=== PATIENT | male | born 1970 | race Caucasian/White ===

== ENCOUNTER 2019-05-28 16:33 | Inpatient (IN) | payer SELFPAY ==
[2019-05-28 16:35] VITALS: BP 128/78; PULSE 76; RESP 18; TEMP 37.1; O2SAT 99; BMI 31.0
--- NOTE | 2019-05-28 16:45 | ED_ITS ---
Documented by User: Nay Nelson DO 05/28/19 18:23 HPI - Chest Pain General: Chief Complaint: Chest Pain Stated Complaint: cp Time Seen by Provider: 05/28/19 16:45 History of Present Illness: HPI narrative: chest pain right chest since yesterday morning. Worse when he was exerting himself yesterday cleaning out a car. It was MD complaint: chest pain Pertinent past history: coronary artery disease Onset (ago): day(s) (2) Timing of current episode: episodic Prior episodes: Yes Onset: during rest Pain location: right chest Pain radiation: right arm Severity: severe Pain scale (0-10): 8 Quality: sharp Relieving factors: nothing Exacerbating factors: exertion Associated symptoms: Reports diaphoresis, dyspnea and nausea; Deny abdominal pain, fever(s) or vomiting Treatment prior to arrival: none Review of Systems Const: Reports: fatigue and diaphoresis; Denies: fever, chills, change in appetite or malaise ENMT: Reports: throat pain and other (jaw pain) Card: Reports: chest pain, lightheadedness and shortness of breath on exertion; Denies: irregular heart rhythm Resp: Reports: shortness of breath GI: Reports: nausea; Denies: abdominal pain, vomiting, cramping or belching : Denies: flank pain or difficulty urinating Musc: Denies: neck pain or back pain Neuro: Reports: headache PFSH ED PFSH: Medical History (Updated 05/28/19 @ 23:58 by Saba Conde MD) Borderline hypertension According to the patient, not currently on any treatment but has been in the past Surgical History (Updated 05/28/19 @ 23:29 by Saba Conde MD) History of appendectomy History of shoulder surgery right Family History (Updated 05/29/19 @ 00:07 by Saba Conde MD) Father CAD (coronary artery disease) reports onset in his 50s, has stents Mother CAD (coronary artery disease) Social History Smoking and tobacco status: current every day smoker Physical Exam Const: COMMON NORMALS: no apparent distress and oriented x3 GENERAL APPEARANCE: cooperative; not in distress HENMT: COMMON NORMALS: normocephalic HEAD & SCALP: normal to inspection and normocephalic MOUTH: oral and palatal mucosa normal and lip normal THROAT: posterior oropharynx normal and tonsils normal Neck/C-Spine: COMMON NORMALS: full ROM, no lymphadenopathy, supple and no meningeal signs GENERAL: Yes normal visual inspection and Yes trachea midline Chest: COMMONS NORMALS: inspection of chest normal Resp: COMMON NORMALS: normal respiratory effort and clear to auscultation bilaterally EFFORT & INSPECTION: Yes able to speak in complete sentences and No respiratory distress AUSCULTATION: clear to auscultation bilaterally, no rales, no rhonchi and no wheezes Cardio: COMMON NORMALS: regular rate, regular rhythm, S1 normal heart sound, S2 normal heart sound and no murmurs RATE: regular rate RHYTHM: regular rhythm HEART SOUNDS: S1 normal and S2 normal PERIPHERAL PULSES: radial pulses present and dorsalis pedis pulses present GI: COMMON NORMALS: normal to inspection, nondistended, normoactive bowel sounds, soft to palpation and non-tender INSPECTION: Yes normal to inspection AUSCULTATION: Yes normoactive bowel sounds PALPATION: Yes soft, No tender, No guarding and No rigid RECTAL EXAM: Yes deferred : COMMON NORMALS: Yes no CVA tenderness BLADDER/KIDNEY EXAM: Yes no CVA tenderness Back/Pelvis: COMMON NORMALS: no CVA tenderness Extremity: COMMON NORMALS: normal to inspection, full ROM, normal capillary refill, no calf tenderness and no pedal edema Neuro: COMMON NORMALS: oriented x3, CN's II-XII intact bilaterally, moves all extremities and no focal motor deficits MENINGEAL SIGNS: Yes no meningeal signs Skin: COMMON NORMALS: no rashes or lesions noted GENERAL SKIN EXAM: no rashes or lesions noted Course Vital Signs: Vital signs: Vital Signs Temperature 98.8 F 05/28/19 16:35 Pulse Rate 58 L 05/28/19 23:32 Respiratory Rate 18 05/28/19 23:32 Blood Pressure 95/55 05/28/19 23:32 Pulse Oximetry 99 05/28/19 23:32 MDM - Chest Pain Lab Data: Attestation: I reviewed the patient's lab results. Labs: Lab Results 05/28/19 05/28/19 05/28/19 Range/Units 16:50 16:50 16:50 WBC 8.2 (4.0-10.0) 10^3/ uL RBC 4.93 (4.1-5.3) 10^6/u L Hgb 15.6 (11.7-16.6) g/dL Hct 47.9 (42.0-52.0) % MCV 97.2 H (80-94) fL MCH 31.6 (28.0-34.0) pg MCHC 32.6 (30.0-36.0) g/dL RDW 13.7 (12.1-15.1) % Plt Count 338 (130-400) 10^3/c mm MPV 10.2 (7.4-10.4) fL Neut % (Auto) 60.3 % Lymph % (Auto) 22.9 % [place] % (Auto) 10.4 % Eos % (Auto) 5.7 % Baso % (Auto) 0.5 % Neut # (Auto) 5.0 (1.8-7.7) 10^3/u L Lymph # (Auto) 1.9 (0.8-4.8) 10^3/u L [place] # (Auto) 0.9 (0.2-0.9) 10^3/u L Eos # (Auto) 0.5 (0.0-0.8) 10^3/u L Baso # (Auto) 0.0 (0.0-0.1) 10^3/u L Nucleated RBC % (a uto) 0 % Nucleated RBCs # 0.0 /100WBC D-Dimer (0-0.59) ug/mIFE U Sodium 142 (136-145) mmol/L Potassium 4.1 (3.5-5.1) mmol/L Chloride 101 (98-107) mmol/L Carbon Dioxide 27 (22-29) mmol/L Anion Gap 18.1 (5-19) BUN 17 (6-20) mg/dL Creatinine 1.2 (0.7-1.2) mg/dL GFR Calculation 64.4 L (90-130) mL/min Glucose 119 H (65-115) mg/dL Calculated Osmolal ity 292 (285-295) mOsm/k g Calcium 9.3 (8.5-10.5) mg/dL Total Bilirubin 0.4 (0.15-1.2) mg/dL AST 53 H (0-40) U/L ALT 24 (0-41) U/L Alkaline Phosphata se 75 (40-130) IU/L Troponin T Baselin e 703 H* (0-15) ng/mL Troponin T [address] [place] (0-15) ng/mL Delta Troponin T (0-10) ABS# Total Protein 7.0 (6.6-8.7) g/dL Albumin 4.5 (3.5-5.2) g/dL Globulin 2.5 (1.3-4.6) g/dL 05/28/19 05/28/19 Range/Units 16:50 19:40 WBC (4.0-10.0) 10^3/ uL RBC (4.1-5.3) 10^6/u L Hgb (11.7-16.6) g/dL Hct (42.0-52.0) % MCV (80-94) fL MCH (28.0-34.0) pg MCHC (30.0-36.0) g/dL RDW (12.1-15.1) % Plt Count (130-400) 10^3/c mm MPV (7.4-10.4) fL Neut % (Auto) % Lymph % (Auto) % [place] % (Auto) % Eos % (Auto) % Baso % (Auto) % Neut # (Auto) (1.8-7.7) 10^3/u L Lymph # (Auto) (0.8-4.8) 10^3/u L [place] # (Auto) (0.2-0.9) 10^3/u L Eos # (Auto) (0.0-0.8) 10^3/u L Baso # (Auto) (0.0-0.1) 10^3/u L Nucleated RBC % (a uto) % Nucleated RBCs # /100WBC D-Dimer 0.16 (0-0.59) ug/mIFE U Sodium (136-145) mmol/L Potassium (3.5-5.1) mmol/L Chloride (98-107) mmol/L Carbon Dioxide (22-29) mmol/L Anion Gap (5-19) BUN (6-20) mg/dL Creatinine (0.7-1.2) mg/dL GFR Calculation (90-130) mL/min Glucose (65-115) mg/dL Calculated Osmolal ity (285-295) mOsm/k g Calcium (8.5-10.5) mg/dL Total Bilirubin (0.15-1.2) mg/dL AST (0-40) U/L ALT (0-41) U/L Alkaline Phosphata se (40-130) IU/L Troponin T Baselin e (0-15) ng/mL Troponin T [address] [place] 813.1 H (0-15) ng/mL Delta Troponin T 110.1 H* (0-10) ABS# Total Protein (6.6-8.7) g/dL Albumin (3.5-5.2) g/dL Globulin (1.3-4.6) g/dL Imaging Data^: CXR: Attestation: I personally reviewed and interpreted this imaging study as follows: My impression: elevated right hemidiaphragm, nad Discharge Plan Discharge Patient Disposition: Admitted As Inpatient Admit Provider: Saba Conde Clinical Impression: Non-ST elevation IN (NSTEMI) Condition: Stable Interventions: ED Discharge Assessment Last Done: 05/28/19 23:32 Discharge Date/Time: 05/29/19 00:02 Sign Out Sign Out Data: Patient Sign Out occurred on 05/28/19 at 18:27. Patient's care was discussed, and care was transferred from to Jennifer Pimentel. Coding Level of Care Code ED Dry Mixer for Chg Fwd Exam Comprehensive Documented by User: Jennifer Pimentel 05/29/19 00:12 HPI - Chest Pain General: Chief Complaint: Chest Pain Stated Complaint: cp Time Seen by Provider: 05/28/19 16:45 PFSH ED PFSH: Medical History (Updated 05/28/19 @ 23:58 by Saba Conde MD) Borderline hypertension According to the patient, not currently on any treatment but has been in the past Surgical History (Updated 05/28/19 @ 23:29 by Saba Conde MD) History of appendectomy History of shoulder surgery right Family History (Updated 05/29/19 @ 00:07 by Saba Conde MD) Father CAD (coronary artery disease) reports onset in his 50s, has stents Mother CAD (coronary artery disease) Social History Smoking and tobacco status: current every day smoker Course Vital Signs: Vital signs: Vital Signs Temperature 98.8 F 05/28/19 16:35 Pulse Rate 58 L 05/28/19 23:32 Respiratory Rate 18 05/28/19 23:32 Blood Pressure 95/55 05/28/19 23:32 Pulse Oximetry 99 05/28/19 23:32 MDM - Chest Pain MDM Narrative: Medical decision making narrative: 1800 -Case turned over to me at change of shift from Dr. Nelson. Please see her note for her history, physical exam and medical decision-making notes. Mr. Mathews is a 48-year-old male who comes in complaining of intermittent chest pain that is described as mostly up in his right upper chest. He states it has been going on for a few weeks but worse today. He states it hurts more today when he moves his arm but he also has pain at rest. At the time of my exam he is chest pain-free he believes the pain just resolved on its own. He does state that at times the pain would radiate up into his jaw but denies any diaphoresis, nausea, vomiting, syncope or near syncopal type symptoms. His first EKG reviewed by me looks unremarkable labs of been delayed and are pending at this time but patient is chest pain-free currently. Admission -patient is still chest pain-free. His second EKG is unremarkable. His troponin has gone up from 700 to 800 but again he is chest pain-free. I have consulted Dr. Conde for admission and she will come to see the patient. I reviewed the case with Dr. Crockett and he is agreeable to consult and will see the patient. Lab Data: Labs: Lab Results 05/28/19 05/28/19 05/28/19 Range/Units 16:50 16:50 16:50 WBC 8.2 (4.0-10.0) 10^3/ uL RBC 4.93 (4.1-5.3) 10^6/u L Hgb 15.6 (11.7-16.6) g/dL Hct 47.9 (42.0-52.0) % MCV 97.2 H (80-94) fL MCH 31.6 (28.0-34.0) pg MCHC 32.6 (30.0-36.0) g/dL RDW 13.7 (12.1-15.1) % Plt Count 338 (130-400) 10^3/c mm MPV 10.2 (7.4-10.4) fL Neut % (Auto) 60.3 % Lymph % (Auto) 22.9 % [place] % (Auto) 10.4 % Eos % (Auto) 5.7 % Baso % (Auto) 0.5 % Neut # (Auto) 5.0 (1.8-7.7) 10^3/u L Lymph # (Auto) 1.9 (0.8-4.8) 10^3/u L [place] # (Auto) 0.9 (0.2-0.9) 10^3/u L Eos # (Auto) 0.5 (0.0-0.8) 10^3/u L Baso # (Auto) 0.0 (0.0-0.1) 10^3/u L Nucleated RBC % (a uto) 0 % Nucleated RBCs # 0.0 /100WBC D-Dimer (0-0.59) ug/mIFE U Sodium 142 (136-145) mmol/L Potassium 4.1 (3.5-5.1) mmol/L Chloride 101 (98-107) mmol/L Carbon Dioxide 27 (22-29) mmol/L Anion Gap 18.1 (5-19) BUN 17 (6-20) mg/dL Creatinine 1.2 (0.7-1.2) mg/dL GFR Calculation 64.4 L (90-130) mL/min Glucose 119 H (65-115) mg/dL Calculated Osmolal ity 292 (285-295) mOsm/k g Calcium 9.3 (8.5-10.5) mg/dL Total Bilirubin 0.4 (0.15-1.2) mg/dL AST 53 H (0-40) U/L ALT 24 (0-41) U/L Alkaline Phosphata se 75 (40-130) IU/L Troponin T Baselin e 703 H* (0-15) ng/mL Troponin T [address] [place] (0-15) ng/mL Delta Troponin T (0-10) ABS# Total Protein 7.0 (6.6-8.7) g/dL Albumin 4.5 (3.5-5.2) g/dL Globulin 2.5 (1.3-4.6) g/dL 05/28/19 05/28/19 Range/Units 16:50 19:40 WBC (4.0-10.0) 10^3/ uL RBC (4.1-5.3) 10^6/u L Hgb (11.7-16.6) g/dL Hct (42.0-52.0) % MCV (80-94) fL MCH (28.0-34.0) pg MCHC (30.0-36.0) g/dL RDW (12.1-15.1) % Plt Count (130-400) 10^3/c mm MPV (7.4-10.4) fL Neut % (Auto) % Lymph % (Auto) % [place] % (Auto) % Eos % (Auto) % Baso % (Auto) % Neut # (Auto) (1.8-7.7) 10^3/u L Lymph # (Auto) (0.8-4.8) 10^3/u L [place] # (Auto) (0.2-0.9) 10^3/u L Eos # (Auto) (0.0-0.8) 10^3/u L Baso # (Auto) (0.0-0.1) 10^3/u L Nucleated RBC % (a uto) % Nucleated RBCs # /100WBC D-Dimer 0.16 (0-0.59) ug/mIFE U Sodium (136-145) mmol/L Potassium (3.5-5.1) mmol/L Chloride (98-107) mmol/L Carbon Dioxide (22-29) mmol/L Anion Gap (5-19) BUN (6-20) mg/dL Creatinine (0.7-1.2) mg/dL GFR Calculation (90-130) mL/min Glucose (65-115) mg/dL Calculated Osmolal ity (285-295) mOsm/k g Calcium (8.5-10.5) mg/dL Total Bilirubin (0.15-1.2) mg/dL AST (0-40) U/L ALT (0-41) U/L Alkaline Phosphata se (40-130) IU/L Troponin T Baselin e (0-15) ng/mL Troponin T [address] [place] 813.1 H (0-15) ng/mL Delta Troponin T 110.1 H* (0-10) ABS# Total Protein (6.6-8.7) g/dL Albumin (3.5-5.2) g/dL Globulin (1.3-4.6) g/dL Imaging Data^: CXR: My impression: No acute cardiopulmonary findings. EKG Data^: EKG 1: Attestation: I personally reviewed and interpreted this EKG as follows: EKG interpretation date: 05/28/19 Interpretation: Normal sinus rhythm at 70 beats a minute, no acute ST or T wave changes. EKG 2: Attestation: I personally reviewed and interpreted this EKG as follows: EKG interpretation date: 05/28/19 EKG interpretation time: 20:23 Interpretation: Normal sinus rhythm at 52 beats a minute, LVH, T waves inverted with Q waves inferiorly specifically 3 and aVF, no other acute ST or T wave changes. EKG 3: Attestation: I personally reviewed and interpreted this EKG as follows: EKG interpretation date: 05/28/19 EKG interpretation time: 22:48 Interpretation: Sinus bradycardia 54 beats a minute, no acute ST or T wave changes. Discharge Plan Discharge Patient Disposition: Admitted As Inpatient Admit Provider: Saba Conde Clinical Impression: Non-ST elevation IN (NSTEMI) Condition: Stable Interventions: ED Discharge Assessment Last Done: 05/28/19 23:32 Discharge Date/Time: 05/29/19 00:02 Sign Out Sign Out Data: Patient Sign Out occurred on 05/28/19 at 18:27. Patient's care was discussed, and care was transferred from to Jennifer Hernandez [facility]. Coding Level of Care Code ED Dry Mixer for [place] Fwd Exam Comprehensive
--- NOTE | 2019-05-28 17:10 | ECG_ITS ---
Measurements Intervals [place] Rate: 70 P: 58 FL: 158 QRS: 4 QRSD: 108 T: 55 QT: 383 QTc: 413 SINUS RHYTHM POSSIBLE LATERAL MYOCARDIAL INFARCTION , PROBABLY OLD [30 ms Q WAVE IN I/ I/aVL/V5/V6] No previous ECG available for comparison Electronically Signed On 05-28-2019 18:12:24 CDT by Elizabeth Garcia M.D. [id number]
--- NOTE | 2019-05-28 17:10 | XR_ITS ---
WS: [id number] CHEST XRAY TECHNIQUE: Portable chest. CLINICAL INFORMATION: pneumonia COMPARISON: None. FINDINGS: Heart: Normal cardiac silhouette. Lungs: Lungs are clear. No consolidation or pleural effusion. Bones: Normal visualized bony structures. XR/XR chest 1V portable [id number] IMPRESSION: Normal chest
[2019-05-28] MEDS: aspirin 81 mg Chew Tablet 324 MG PO (17:24)
[2019-05-28] MEDS: ondansetron 2 mg/ML SDV 2 mL 4 MG IVP (17:24)
[2019-05-28 17:25] VITALS: RESP 17; O2SAT 97
[2019-05-28] MEDS: morphine 4 mg/mL SDV 1 mL IVP (17:25)
[2019-05-28 17:27] VITALS: BP 107/74; PULSE 65; RESP 17; O2SAT 96
--- NOTE | 2019-05-28 19:10 | ECG_ITS ---
Measurements Intervals [place] Rate: 52 P: 50 TX: 169 QRS: 6 QRSD: 96 T: -19 QT: 421 QTc: 392 SINUS BRADYCARDIA MINIMAL VOLTAGE CRITERIA FOR LVH, CONSIDER NORMAL VARIANT [MEETS CRITERIA IN ONE OF: R(aVL), S(V1), R(V5), R(V5/V6)+S(V1)] INFERIOR MYOCARDIAL INFARCTION , OF INDETERMINATE AGE WITH POSTERIOR EXTENSION [40+ ms Q WAVE AND/OR ST/T ABNORMALITY IN II/aV Compared to ECG 05/28/2019 16:45:43 Sinus rhythm no longer present Myocardial infarct finding still present Electronically Signed On 06-01-2019 15:01:17 CDT by Elizabeth Garcia M.D. [id number]
[2019-05-28 19:30] VITALS: BP 110/58; PULSE 56; RESP 16; O2SAT 98
[2019-05-28 19:37] LABS: Basophils % 0.5 %; Eosinophils # 0.5 10^3/uL (0.0-0.8); Eosinophils % 5.7 %; Hematocrit 47.9 % (42.0-52.0); Hemoglobin 15.6 g/dL (11.7-16.6); Lymphocytes # 1.9 10^3/uL (0.8-4.8); Lymphocytes % 22.9 %; Mean Corpuscular HGB Conc 32.6 g/dL (30.0-36.0); Mean Corpuscular Hemoglobin 31.6 pg (28.0-34.0); Mean Corpuscular Volume 97.2 fL (80-94); Mean Platelet Volume 10.2 fL (7.4-10.4); Monocytes # 0.9 10^3/uL (0.2-0.9); Monocytes % 10.4 %; Neutrophils % 60.3 %; Nucleated Red Blood Cells % 0 %; Platelet Count 338 10^3/cmm (130-400); Red Blood Count 4.93 10^6/uL (4.1-5.3); Red Cell Distribution Width 13.7 % (12.1-15.1); White Blood Count 8.2 10^3/uL (4.0-10.0)
[2019-05-28] MEDS: nitroglycerin 1 gm/inch oint Pkt 1 INCH TOPICAL (20:31)
[2019-05-28 21:00] VITALS: BP 114/92; PULSE 52; RESP 16; O2SAT 98
[2019-05-28 21:12] LABS: Troponin(5th) Baseline 703 ng/mL (0-15)
[2019-05-28 21:13] LABS: Troponin 5 2HR 813.1 ng/mL (0-15); Troponin 5 2HR Delta 110.1 ABS# (0-10)
[2019-05-28 21:14] LABS: Alanine Aminotransferase 24 U/L (0-41); Albumin Level 4.5 g/dL (3.5-5.2); Alkaline Phosphatase 75 IU/L (40-130); Anion Gap 18.1 (5-19); Aspartate Amino Transferase 53 U/L (0-40); Blood Urea Nitrogen 17 mg/dL (6-20); Calcium 9.3 mg/dL (8.5-10.5); Carbon Dioxide 27 mmol/L (22-29); Chloride 101 mmol/L (98-107); Globulin 2.5 g/dL (1.3-4.6); Glomerular Filtration Rate 64.4 mL/min (90-130); Glucose 119 mg/dL (65-115); Osmolality Calculated 292 mOsm/kg (285-295); Potassium 4.1 mmol/L (3.5-5.1); Sodium 142 mmol/L (136-145); Total Bilirubin 0.4 mg/dL (0.15-1.2)
[2019-05-28 21:19] LABS: D Dimer 0.16 ug/mIFEU (0-0.59)
[2019-05-28] MEDS: enoxaparin 100 mg/mL Syringe 95 MG SUBCUT (21:42)
--- NOTE | 2019-05-28 23:10 | ECG_ITS ---
Measurements Intervals [place] Rate: 54 P: 57 CT: 170 QRS: 1 QRSD: 103 T: 45 QT: 430 QTc: 409 SINUS BRADYCARDIA Compared to ECG 05/28/2019 16:45:43 Sinus rhythm no longer present Myocardial infarct finding no longer present Electronically Signed On 05-30-2019 6:44:24 CDT by Evan Crockett M.D. [email or web address]
--- NOTE | 2019-05-28 23:14 | PC.NURSE ---
Pt states he fellt a stabbing pain 1/10 scale during bradycardia of 40 episode. RN & Dr notified
[2019-05-28 23:15] LABS: Troponin 5 6HR 1044 ng/mL (0-15); Troponin 5 6HR Delta 341 ng/L (0-12)
--- NOTE | 2019-05-28 23:15 | PC.NURSE ---
critical 6 hour Trop 1044, delta 341, advised Dr. Pimentel.
--- NOTE | 2019-05-28 23:24 | P.HP_ITS ---
Providers/Chief Complaint Admitting Physician: Saba Conde MD Primary Care Provider: none presently Chief Complaint: chest pain History of Present Illness Elliott Breen is a 48 year old male who presented to the emergency room with chief complaint of chest pain. Symptoms been going on intermittently over the last 2 to 3 weeks. Most of the time the pain is with exertion but has occurred occasionally when lying down. Pain seems to start on the right side of his chest and radiates up into his jaw. He described his teeth hurting with the pain. Most of the time it seems to resolve after a while without progression. He is not really had any other associated symptoms. He has intermittent joint pains for which he intermittently takes naproxen. He has not had any relief with this. 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 Yesterday he was cleaning out the trailer and had fairly severe pain that he rated up to a 10 out of 10 at its worst. It was associated with some shortness of breath yesterday. Seemed to improve a little bit with rest but did not completely go away for some time. Today he woke up not feeling well to the point that he did not feel like going to work. He eventually came in for further evaluation. He admits that he had been a little bit scared to come in to be evaluated lately because of the COVID pandemic and potential risk of exposure. On arrival to the emergency room initial EKG showed some inferior Q waves but no ST segment elevation. Initial troponin was over 700. 2-hour troponin was over 800 with a delta of 110. EKG showed evolving Q waves and some transient flipped T waves. Patient had received nitroglycerin and aspirin with resolution of his chest pain. He is currently chest pain-free. Patient does smoke about a half a pack a day. He has a family history of coronary artery disease with both of his parents having heart problems in his father having had stents placed in his 50s. He says he has been told that he has a little bit of high blood pressure but he is not on any chronic medications for such. Denies any dyslipidemia, diabetes or other known chronic medical problems. Patient is being admitted for further evaluation and treatment. Review of Systems Const: Denies: fever, chills or change in weight Eyes: Denies: change in vision ENMT: Denies: throat pain or nasal congestion Card: Reports: chest pain; Denies: palpitations or edema Resp: Reports: shortness of breath; Denies: productive cough GI: Denies: abdominal pain, nausea, vomiting, diarrhea, constipation or blood in stool : Denies: urinary frequency Skin/Breast: Denies: rash or sores Neuro: Denies: headache or weakness in extremities Psych: Reports: other (admits to being scared presently); Denies: anxiety or depression Fer/Lymph: Denies: easy bruising or easy bleeding Medications/Allergies Home Medications Medication Instructions Recorded Confirmed Last Taken Type multivitamin with minerals 1 tab PO DAILY 05/28/19 05/28/19 Unknown History [Multiple Vitamin-Minerals] naproxen sodium [Aleve] 220 mg PO BID PRN 05/28/19 05/28/19 05/27/19 History Allergies Allergy/AdvReac Type Severity Reaction Status Date / Time meperidine [From Demerol] Allergy ADR-Irritab Verified 05/28/19 16:42 le PFSH Acute PFSH: Medical History (Updated 05/28/19 @ 23:58 by Saba Conde MD) Borderline hypertension According to the patient, not currently on any treatment but has been in the past Surgical History (Updated 05/28/19 @ 23:29 by Saba Conde MD) History of appendectomy History of shoulder surgery right Family History (Updated 05/29/19 @ 00:07 by Saba Conde MD) Father CAD (coronary artery disease) reports onset in his 50s, has stents Mother CAD (coronary artery disease) Social History Smoking and tobacco status: current every day smoker Vitals/I&O/Wt Last Vital Signs Temp 98.8 F 05/28/19 16:35 Pulse 65 05/28/19 17:27 Resp 17 05/28/19 17:27 BP 107/74 05/28/19 17:27 Pulse Ox 96 05/28/19 17:27 Weight last 48 hrs Weight 95.254 kg Physical Exam Const: COMMON NORMALS: oriented x3 and alert HENMT: COMMON NORMALS: normocephalic, head/scalp atraumatic, moist oral mucous membranes and oropharynx normal Eye: COMMON NORMALS: PERRL and EOMs intact bilaterally Neck/C-Spine: COMMON NORMALS: supple Lymph: LYMPHATIC: no lymphadenopathy noted Resp: COMMON NORMALS: normal respiratory effort, no use of accessory muscles and clear to auscultation bilaterally Cardio: COMMON NORMALS: regular rate, regular rhythm, no gallops, no murmurs and no rub GI: COMMON NORMALS: soft to palpation and non-tender AUSCULTATION: Yes no rmoactive bowel sounds Extremity: COMMON NORMALS: normal capillary refill GENERAL: No clubbing and Yes edema (Trace) RIGHT UPPER EXTREMITY: Yes shoulder joint Right shoulder: Yes ROM (Decreased chronically, no warmth or erythema) Neuro: COMMON NORMALS: moves all extremities and no sensory deficits noted Psych: COMMON NORMALS: thought process normal and cooperative Skin: COMMON NORMALS: no rashes or lesions noted and no mottling Data : 05/28/19 16:50 05/28/19 16:50 Other Labs: Laboratory Tests 05/28/19 05/28/19 05/28/19 16:50 16:50 16:50 D-Dimer 0.16 AST 53 H Troponin I 6 Hour Troponin I Hi Sens Del Troponin T Baseline 703 H* Troponin T 120 Minute Delta Troponin T 05/28/19 05/28/19 19:40 22:45 D-Dimer AST Troponin I 6 Hour 1044 H Troponin I Hi Sens Del 341 H* Troponin T Baseline Troponin T 120 Minute 813.1 H Delta Troponin T 110.1 H* A&P Assessment and plan (1) Non-ST elevation [place] (NSTEMI): Patient has both typical and atypical features of his chest pain but describes an escalating course of the last few weeks consistent with unstable angina. On presentation he is inferior changes suggestive of ischemia. He has no known history of coronary artery disease but has been told he has hypertension in the past. Other current risk factors include tobacco use and o besity combined with a family history of coronary artery disease. I suspect he had an acute event yesterday by history. He has developed some low normal blood pressure and heart rate with initiation of nitroglycerin but is currently chest pain-free. Status: Acute (2) Nicotine dependence, cigarettes, uncomplicated: Half a pack a day, has expressed interest in quitting given the acute event related to his heart Status: Chronic Additional A&P Information Minimal AST elevation Borderline blood sugar Inpatient admission Continue treatment dose Lovenox Aspirin with Plavix load We will decrease Nitropaste to half an inch and continue given current control of symptoms Telemetry monitoring I have spoken with Dr. Crockett who will see him in consultation Keep n.p.o. for further cardiac evaluation in the morning Echocardiogram is ordered Check lipids and hemoglobin A1c IV fluids low volume tonight superintendent [employer] services to assist with outpatient follow-up I discussed with patient the importance of smoking cessation in regards to overall cardiac health as well as other lifestyle changes including addition of medications, need to follow-up with a primary care provider etc. Gave patient an opportunity to ask questions. He was understandably a little bit scared, I think made a little bit worse because he had delayed coming in given the fear of infection. Provided reassurance as able Full code Attestations Medical Necessity Statement*: Anticipated stay greater than 2 midnights in patient with inferior plans are as noted above. Non-ST elevation TX and significant troponin elevation. He describes unstable angina over the last few weeks. Plans are as noted above. Coding Level of Care Code Acute Machine Room Engineer for Tucker Siegel Diagnoses Non-ST elevation TX (NSTEMI) I21.4 Nicotine dependence, cigarettes, uncomplicated F17.210
[2019-05-28 23:32] VITALS: BP 95/55; PULSE 58; RESP 18; O2SAT 99
[2019-05-29] VITALS (32 sets, daily range): BP systolic 97–165; BP diastolic 55–114; PULSE 49–78; RESP 14–21; TEMP 36.5–37; O2SAT 94–99
--- NOTE | 2019-05-29 00:19 | PC.NURSE ---
PT ARRIVED TO ROOM 254-1 VIA BED AND AMBULATED FROM THE PEREZ TO THEIR BED. PT STATES THAT THEY HAVE 0/10 PAIN PRESENT AT THIS TIME. PT HAS A NITRO PASTE 1 ON THE RIGHT CHEST AT THIS TIME. VS T-97.7, P-50, RR-18, BP-97/55, SPO2-97%. PT HAS A NSR AT THIS TIME. WILL CONTINUE TO MONITOR.
[2019-05-29] MEDS: morphine 4 mg/mL SDV 1 mL IVP (00:35)
--- NOTE | 2019-05-29 00:46 | PC.NURSE ---
PT C/O 8/10 PAIN IN NECK AND SHOULDER. RN GAVE 4MG MORPHINE IVP. WILL CONTINUE TO MONITOR.
[2019-05-29] MEDS: atorvastatin 40 mg Tablet PO ×2 (01:02→20:54)
[2019-05-29] MEDS: clopidogrel 300 mg Tablet PO (01:03)
[2019-05-29] MEDS: nitroglycerin 1 gm/inch oint Pkt 0.5 INCH TOPICAL ×5 (01:04→20:54)
[2019-05-29] MEDS: sodium chloride 0.45% 1,000 ML 75 ML IV (01:13)
[2019-05-29 05:22] LABS: Basophils % 0.5 %; Eosinophils # 0.4 10^3/uL (0.0-0.8); Eosinophils % 6.2 %; Hematocrit 43.2 % (42.0-52.0); Hemoglobin 13.9 g/dL (11.7-16.6); Lymphocytes # 1.8 10^3/uL (0.8-4.8); Lymphocytes % 28.3 %; Mean Corpuscular HGB Conc 32.2 g/dL (30.0-36.0); Mean Corpuscular Hemoglobin 31.3 pg (28.0-34.0); Mean Corpuscular Volume 97.3 fL (80-94); Mean Platelet Volume 9.5 fL (7.4-10.4); Monocytes # 0.8 10^3/uL (0.2-0.9); Monocytes % 11.7 %; Neutrophils # 3.5 10^3/uL (1.8-7.7); Neutrophils % 53.1 %; Nucleated Red Blood Cells % 0 %; Platelet Count 253 10^3/cmm (130-400); Red Blood Count 4.44 10^6/uL (4.1-5.3); Red Cell Distribution Width 13.6 % (12.1-15.1); White Blood Count 6.5 10^3/uL (4.0-10.0)
[2019-05-29 05:39] LABS: INR 0.96 (0.8-1.2)
[2019-05-29 05:40] LABS: Partial Thromboplastin Time 34.4 SECONDS (23.9-36.7)
[2019-05-29 05:43] LABS: Estmated Average Glucose 111; Hemoglobin A1C 5.5 % (4.0-6.0)
[2019-05-29 05:50] LABS: Anion Gap 13.7 (5-19); Blood Urea Nitrogen 19 mg/dL (6-20); Calcium 8.9 mg/dL (8.5-10.5); Carbon Dioxide 26 mmol/L (22-29); Chloride 103 mmol/L (98-107); Glomerular Filtration Rate 71.1 mL/min (90-130); Glucose 94 mg/dL (65-115); Osmolality Calculated 284 mOsm/kg (285-295); Potassium 3.7 mmol/L (3.5-5.1); Sodium 139 mmol/L (136-145)
[2019-05-29 05:56] LABS: Chol HDL Ratio 5.24 mg/dL (1.0-5.00); Cholesterol 178 mg/dL (0-200); HDL Cholesterol 34 mg/dL (60-100); LDL Cholesterol Calculated 103 mg/dL (50-129); LDL HDL Ratio 3.03 RATIO (0.00-3.22); NT Pro B Type Natriuretic Pept 284 pg/mL (0-125); Triglycerides 206 mg/dL (0-150)
[2019-05-29 06:04] LABS: Phosphorus 3.5 mg/dL (2.5-4.5)
[2019-05-29 06:05] LABS: Magnesium 2.1 mg/dL (1.7-2.3)
--- NOTE | 2019-05-29 07:43 | PM.CONSULT ---
Providers/Reason For Consult Consulting Physican/Specialty*: Cardiovascular medicine Reason for Consult*: Non-STEMI Attending Physician: Saba Conde MD History of Present Illness History of Present Illness Elliott Breen is a 48 year old male who is a heavy smoker. He has no history of heart disease. He admits that over the last 3 or 4 weeks he has had several episodes of chest pain numbering in the 5-6 range. He has a difficult time describing them. They sound substernal. 2 days ago it was much more severe. Yesterday morning he did not feel well and so he told his boss at work that he was not feeling well and they told him to come in. His first troponin was 700. His third troponin was 1044. He was placed on medications and has not had any further chest discomfort. His EKG is unremarkable. Review of Systems General: Reports: 10 or more systems reviewed and unremarkable except in HPI and below Meds/Allergies Home Medications and Allergies Home Medications Medication Instructions Recorded Confirmed Type multivitamin with minerals 1 tab PO DAILY 05/28/19 05/28/19 History [Multiple Vitamin-Minerals] naproxen sodium [Aleve] 220 mg PO BID PRN 05/28/19 05/28/19 History Allergies Allergy/AdvReac Type Severity Reaction Status Date / Time meperidine [From Demerol] Allergy ADR-Irritab Verified 05/28/19 16:42 le Current Medications Current Medications Generic Name Dose Route Start Last Admin Trade Name Freq PRN Reason Stop Dose Admin Atorvastatin Calcium 40 mg 05/28/19 23:57 05/29/19 01:02 Lipitor PO 40 mg BEDTIME ECTOR Administration Sodium Chloride 1,000 mls @ 75 mls/hr 05/28/19 23:57 05/29/19 01:13 Sodium Chloride 0.45% IV 75 mls/hr .[id number] ECTOR Administration Morphine Sulfate 4 mg 05/28/19 23:57 05/29/19 00:35 Morphine IVP 4 mg Q4H PRN Administration SEVERE PAIN Nitroglycerin 0.5 inch 05/28/19 23:45 05/29/19 06:06 Nitro-Bid TOPICAL 0.5 inch Q6H ECTOR Administration PFSH Acute PFSH: Medical History Borderline hypertension According to the patient, not currently on any treatment but has been in the past Surgical History History of appendectomy History of shoulder surgery right Family History Father CAD (coronary artery disease) reports onset in his 50s, has stents Mother CAD (coronary artery disease) Social History Smoking and tobacco status: current every day smoker Vitals/I&O/Wt Last Vital Signs Temp 98.6 F 05/29/19 07:37 Pulse 50 L 05/29/19 07:37 Resp 16 05/29/19 07:37 BP 131/79 05/29/19 07:37 Pulse Ox 96 05/29/19 07:37 Weight last 48 hrs Weight 216 lb 1.6 oz Weight 210 lb Physical Exam Narrative: EXAM NARRATIVE: GENERAL: General he looks and feels well somewhat apprehensive. HEENT: Exam within normal limits. NECK: Supple without jugular vein distention. The carotid upstroke is normal without bruits. BACK: Exam normal. LUNGS: Clear. HEART: Regular rate and rhythm. ABDOMEN: Benign without organomegaly or tenderness. EXTREMITIES: No edema. NEUROLOGIC: Exam normal. SKIN: Unremarkable. Data Labs: Other Labs: Troponin 703, 813 and 1044.. EKG is basically normal. There are some nondiagnostic Q waves noted laterally. A&P Assessment and plan (1) Borderline hypertension: Status: Acute (2) Nicotine dependence, cigarettes, uncomplicated: Status: Chronic (3) Non-ST elevation [place] (NSTEMI): Status: Acute Additional A&P Information Patient needs coronary angiography. He is n.p.o. Will proceed with cath this morning. Coding Level of Care Code New Pt Acute Director Of Emergency Nursing for Chg Fwd Patient Type New History Detailed Exam Detailed Medical Decision Making Moderate Complexity Diagnoses Borderline hypertension R03.0 Nicotine dependence, cigarettes, uncomplicated F17.210 Non-ST elevation ME (NSTEMI) I21.4
[2019-05-29] MEDS: diphenhydrAMINE 50 mg Capsule PO (08:09)
[2019-05-29] MEDS: aspirin 81 mg EC Tablet PO (08:10)
[2019-05-29] MEDS: clopidogrel 75 mg Tablet PO (08:10)
[2019-05-29] MEDS: sodium chloride 0.9% 1,000 ML 50 ML IV (08:10)
--- NOTE | 2019-05-29 08:44 | XACV_ITS ---
Exam Room: 254 Ht: 175 cm Wt: 98 kg BSA: 2.21 m2 Gender: Male : 1970 Any Known Allergies: Demerol Exam Priority: Routine Indication(s): - Non-ST elevation [place] Diagnostic Cath Status: Urgent Diagnostic Findings Young man age 46 with no prior history but heavy tobacco abuse with fairly typical angina over the last 3 weeks. 2 days prior to presentation pain worsened. [place] poorly on the day of admission and came to the emergency room. Troponin over a thousand without significant EKG changes. Echo reveals lower limit of normal LV function. Angiography reveals a right dominant system. The left main is essentially normal. The circumflex exhibits mild to moderate disease in the proximal portion. There is a large first obtuse marginal branch. There is a 95% discrete stenosis in the midportion and a 99% stenosis in the distal portion. The AV groove branch and a second marginal branch are severely diffusely diseased and nearly occluded. The entire circumflex system provides some collateral flow to the distal right coronary artery which is occluded. The right coronary artery is occluded at its origin. It receives collateral flow from the LAD via the septal branches and from the circumflex. The LAD is a fairly large vessel and reveals a long 95+ percent stenosis in the proximal portion. There is a diagonal branch which is small that contains moderate to severe diffuse disease in its proximal portion. As mentioned, the septal branches of the LAD provide collateral flow to the distal right coronary artery. Conclusions Severe three-vessel disease with an occluded right coronary artery and essentially normal LV function. Interventional RX Recommendation: CABG Diagnostic RX Recommendation: CABG Anticoagulation: Heparin Ventriculography Ejection Fraction: 55.0 % Clinical Evaluation EBL: 5mL-10mL Procedural Details Patient arrived to the cath lab nurse via wheelchair. Admit Source: In Patient. Procedure Consent Obtained. Current Diagnosis : NSTEMI. [facility] Clinical Fraility Score: 3: Managing Well. Field Service Technician Indications: ACS > 24 hours. Chest Pain Symptom Assessment: Typical Angina Symptoms. Cardiovascular Instability: N/A, STABLE. Pre-Procedure Time Out. Identified patient by full name and date of as verbalized by the patient/guarantor. Does the consent match the physician's order: Yes. Accurate & Complete Informed Consent: Yes. Inpatient/Outpatient History & Physical on Chart: Yes. If H&P is completed, is and addenduem needed: N/A; If yes, is the addendum complete: N/A. Visualize and Verify Site with Patient/Guarantor: N/A. Relevant Radiology Images available: Yes. Pre-op teaching completed and patient verbalized understanding. The risks, benefits, and alternatives of sedation and/or procedure were discussed by physician. The patient agrees to continue. Procedure started. Correct patient, site and procedure confirmed by cath team. Current diagnosis: NSTEMI. PERRLA. Strong, equal hand university administrator bilaterally. Lungs clear x 5 lobes. IV Site on Arrival: 18 gauge in the right anticubital. IV Fluids: 0.9% NaCl at KVO. 600 mL infused prior to cath lab nurse. Pre Procedural Pulses: bilateral radial was 3+. Pre Procedural Pulses: bilateral dorsalis pedis was 2+. Pre Procedural Pulses: bilateral posterior tibial was 2+. Oxygen started at 2liters/min via nasal canula. right groin was prepped with chloroprep then draped in the usual sterile fashion. right radial was prepped with chloroprep then draped in the usual sterile fashion. Physician notified. Baseline sample Acquired. HR: 54 BPM. Equipment: 6F - Radial. Physician arrived. Physician scrubbed in. Immediate Pre-Procedure Time Out. Correct Patient: Yes; Correct Procedure: Yes; Correct Site: N/A; Correct Patient Position: N/A; Correct Supplies: Yes; Dried Flammable Prep: Yes; Blood Products Available: N/A;. Lidocaine 1% infiltrated to the right radial. Arterial access obtained. A TR 6FR Radial TIG 4.0 110cm was advanced over the wire and used for Left and right coronary angiography. Multiple views taken of left coronary artery. Catheter redirected to the RCA. Multiple views taken of right coronary artery. Catheter removed over the exchange wire. A CRD 6F 145 degree Pigtail 110cm Diagnostic Catheter was advanced over the wire and used for Ventriculography. EDP Sample taken: LV 162/-6,21; HR: 77 BPM; SpO2: 90%. LV gram performed in MOHR @ 10 mL/second for a total of 30 mL. Patient EF: Normal. EDP Sample taken: LV 148/-10,20; HR: 72 BPM; SpO2: Off%. Pullback taken: LV 149/-6,21; AO 133/81(104); Mean: 23mmHg, Peak to Peak: 15mmHg, SEP: 6sec/min; HR: 73 BPM; SpO2: 93%. Catheter removed over the exchange wire. Wire out. Physician scrubbed out. A TR Band was unsuccessful obtaining hemostatsis at the Right Radial artery insertion site. TR band placed. Hemostasis obtained. Post Procedure: Pulses reassessed and unchanged. PERRLA. Strong, equal hand university administrator bilaterally. No VTE prophylaxis required. Medication's Wasted: Lidocaine 1% = 12 ml. Total IV fluids: 50 ml. Fluoro: 1:08. Contrast type used: Omnipaque 300 mgI/mL, 500 mL bottle. [id number]. Post-op diagnosis: NONSTEMI, CAD. Complications: NONE. Estimated blood loss: 5mL-10mL. Procedure completed. Patient transferred by wheelchair to [address] [place] [id number]. Vital chart was stopped. I, the attending physician, have reviewed and verified all procedure medications. Yes, all medications given per verbal order History/Risk Factors Hypertension: Yes Dyslipidemia: Yes Peripheral Arterial Disease (PAD): No Myocardial Infarction (TX): No Obesity: Yes Renal Disease: No Tobacco Use: Current/Recent(w/in 1 year) Prior Interventions PCI: No CABG: No Valve Surgery: No Report Signatures Finalized by:Dr. Evan Crockett MD on 05/29/2019 9:41:28 AM
--- NOTE | 2019-05-29 09:23 | PC.CHAP ---
Pastoral Care Encounter/Spiritual Assessment Type of Contact [] Declined chief operator lock tender visit [] Patient/Family/Request visit [] Outpatient visit [] Follow-up visit [] Physician referral [] Code/Alert [x] Routine visit [] Staff referral [] Actively dying [] Patient sleeping [] Family support [] [x] Out of room [] Palliative care [] [] Receiving care in room [] Pre-surgical visit [] Trauma [] Long length of stay [] ICU visit [] Other: Relational/Emotional Strength [] Patient feels connected with others/family/visitors/staff [] Distress [] Loneliness/isolation [] Abandonment Spirituality of Patient [] Person of Linda [] Attends Mandaen of their Linda [] Believes in Prayer [] Reads Bible or Oriental Orthodox materials [] There are Spiritual issues to be addressed Sap Payroll Consultant Interventions [] Prayer [] Active listening [] Non-anxious presence [] Spiritual/emotional support [] Crisis/trauma care [] Spiritual counseling [] Bereavement support [] Provided bereavement packet [] Provided Bible/devotional materials [] Provided toy/stuffed animal, coloring book to patient or family member [] Provided Communion [] Anointing/[place] [] Salvation [x] Completed spiritual assessment [] Other: Impact on Illness or Injury [] Angry [] Fearful [] Anxious [] Often cries [] Exhaustion [] Unable to work [] Unable to attend samaritan [] Unable to walk/stand [] Unable to read [] Unable to drive [] Unable to eat/drink [] Unable to sleep [] Unable to be with family [] Patient intubated [] Other: Summary Patient in surgery Time spent with patient
--- NOTE | 2019-05-29 10:49 | PC.RESP ---
Smoking Cessation information to pt and sent a list of pending classes.
[2019-05-29] MEDS: sodium chloride 0.9% 1,000 ML 100 ML IV (11:44)
--- NOTE | 2019-05-29 14:45 | PM.PN ---
Subjective Subjective: Interval history: Overnight labs, H&P reviewed. Seen s/p cardiac catheterization which showed 3VD. Denies any current chest pain, dyspnea or palpitations Medications: Reviewed: Yes Vitals/I&O/Wt Last Vital Signs Temp 98.6 F 05/29/19 11:07 Pulse 57 L 05/29/19 14:00 Resp 18 05/29/19 14:00 BP 125/80 05/29/19 14:00 Pulse Ox 97 05/29/19 14:00 05/28/19 05/29/19 05/29/19 22:59 06:59 14:59 Intake Total 240 / 240 Balance 240 / 240 Weight last 48 hrs Weight 98.021 kg Weight 95.254 kg Physical Exam Narrative: EXAM NARRATIVE: GEN: Awake, alert and oriented, no acute distress CVS: S1S2 N RS: CTA B/L Abd: Soft, nt/nd , bs+ ENDODONTIC ASSISTANT: no focal neuro deficits Data : 05/29/19 04:40 05/29/19 04:40 A&P Assessment and plan (1) Non-ST elevation [place] (NSTEMI): s/p coronary angiogram earlier today continue ASA, lipitor and nitro patch with BP parameters Awaiting further cardiac recommendations Status: Acute (2) Nicotine dependence, cigarettes, uncomplicated: Half a pack a day, has expressed interest in quitting given the acute event related to his heart Status: Chronic Additional A&P Information Full code DVT ppx: Attestations Medical Necessity Statement*: s/p coronary angiogram today, awaiting further recommendations Coding Level of Care Code Acute Station Installation Supervisor for [facility] Diagnoses Non-ST elevation IL (NSTEMI) I21.4 Nicotine dependence, cigarettes, uncomplicated F17.210
--- NOTE | 2019-05-29 15:10 | USCV_ITS ---
Elliott Breen Age: 48 Gender: M : 1970 Exam Date: 05/29/2019 16:10 Ordering Phys: Gurvinder Mendoza MD (Andy) ([email or web address]) Technologist: Mónica Musa [place] [facility] [place]: CABG RIGHT LEFT LOWER EXTREMITY Diameter Diameter (cm) (cm) 0.42 High Thigh 0.48 0.34 Mid Thigh 0.32 0.31 Above Knee 0.25 0.22 Below Knee 0.16 0.13 Mid Calf 0.13 0.16 Ankle 0.18 RIGHT LEFT Findings See measurements listed above. Patent and easily collapsible veins bilaterally in the lower extremities Small caliber veins in the below-knee levels Conclusions Patent veins bilaterally in the lower extremities with no evidence of thrombosis. Small caliber veins in the below-knee levels. Venous dimensions as mentioned above Dr Elizabeth Garcia MD FAC (Electronically Signed) Final Date: 29 May 2019 17:44 S
[2019-05-29] MEDS: chlorhexidine gluconate 0.12% Btl 473 mL 15 ML MUCOUS MEM (17:05)
[2019-05-29] MEDS: mupirocin oint 22 gm 1 APPLIC NASAL (17:06)
--- NOTE | 2019-05-29 17:15 | P.CONIM_ITS ---
Providers/Reason For Consult Consulting Physican/Specialty*: Dr. Mendoza, cardiothoracic surgery Reason for Consult*: Severe three-vessel coronary artery disease with recent non-STEMI Requesting Physcian: Dr. Crockett Attending Physician: Dina Dobson MD History of Present Illness History of Present Illness Elliott Breen is a 48 year old male, with a long history of tobacco use, who was admitted yesterday after presenting with a 3 to 4-week history of progressive chest discomfort, both associated with and without exertion. Approximately 2 days prior to admission, he had much more severe intensity to his discomfort. While at work the day prior to presentation he had such severe discomfort, that he was dismissed from work for presentation. Initial troponin was 700 with subsequent elevation over 1000. EKG rather unremarkable. He was treated per chest pain protocol and ruled in for a non-STEMI. He did receive a loading dose of Plavix in the emergency department. He was evaluated by Dr. Crockett and underwent cardiac catheterization earlier today. The study reveals ejection fraction of approximately 50 to 55%. His right coronary artery is totally occluded with [id number] collateralization from septal branches of the LAD and from the circumflex artery. LAD is a large vessel with a 95% long proximal stenosis. The circumflex artery has some moderate disease and after the takeoff of a large OMB there is a 95% discrete stenosis in this vessel with a 99% more distal stenosis. Given his three-vessel coronary artery disease with a totally occluded RCA, I was consulted to consider surgery revascularization. Mr. Breen has remained pain-free since admission and currently is resting comfortably. As would be expected, he is a bit emotional concerning these findings but remains quite stoic. He states his father had bypass surgery in his 50s. I did genetic counselor with him at bedside with his [facility]. Review of Systems Const: Denies: fever, chills, change in appetite, change in weight, fatigue or night sweats Eyes: Denies: change in vision or blurry vision ENMT: Denies: painful swallowing or hoarseness Card: Reports: chest pain (For the previous 3 to 4 weeks) and shortness of breath on exertion (Occasionally); Denies: palpitations, irregular heart rhythm, edema or syncope Resp: Denies: shortness of breath or productive cough GI: Denies: abdominal pain, nausea, vomiting, difficulty swallowing, heartburn/indigestion or change in bowel habits : Denies: difficulty urinating, painful urination, urinary frequency, urinary urgency or urinary hesitancy Musc: Denies: extremity pain or extremity swelling Skin/Breast: Denies: rash Neuro: Denies: headache, numbness in extremities, weakness in extremities or changes in sensation Psych: Denies: anxiety, depression or change in appetite Endo: Denies: excessive urination, excessive thirst or cold intolerance Fer/Lymph: Denies: easy bruising, easy bleeding, petechiae or enlarged lymph nodes Meds/Allergies Home Medications and Allergies Home Medications Medication Instructions Recorded Confirmed Type multivitamin with minerals 1 tab PO DAILY 05/28/19 05/28/19 History [Multiple Vitamin-Minerals] naproxen sodium [Aleve] 220 mg PO BID PRN 05/28/19 05/28/19 History Allergies Allergy/AdvReac Type Severity Reaction Status Date / Time meperidine [From Demerol] Allergy ADR-Irritab Verified 05/28/19 16:42 le Current Medications Current Medications Generic Name Dose Route Start Last Admin Trade Name Freq PRN Reason Stop Dose Admin Aspirin 81 mg 05/29/19 09:00 05/29/19 08:10 Aspirin Ec PO 81 mg DAILY ECTOR Administration Atorvastatin Calcium 40 mg 05/28/19 23:57 05/29/19 01:02 Lipitor PO 40 mg BEDTIME ECTOR Administration Chlorhexidine Gluconate 15 ml 05/29/19 18:00 05/29/19 17:05 Perigard MUCOUS MEM 15 ml BID ECTOR Administration Sodium Chloride 1,000 mls @ 50 mls/hr 05/29/19 07:47 05/29/19 08:10 Sodium Chloride 0.9% IV 05/30/19 03:46 50 mls/hr .Q20H ONE Administration Mupirocin 1 applic 05/29/19 18:00 05/29/19 17:06 Bactroban NASAL 1 each BID ECTOR Administration Nitroglycerin 0.5 inch 05/28/19 23:45 05/29/19 17:07 Nitro-Bid TOPICAL 0.5 inch Q6H ECTOR Administration PFSH Acute PFSH: Medical History Borderline hypertension According to the patient, not currently on any treatment but has been in the past Surgical History History of appendectomy History of shoulder surgery right Family History Father CAD (coronary artery disease) reports onset in his 50s, has stents Mother CAD (coronary artery disease) Social History Smoking and tobacco status: current every day smoker Vitals/I&O/Wt Last Vital Signs Temp 98.4 F 05/29/19 15:27 Pulse 67 05/29/19 16:00 Resp 16 05/29/19 16:00 BP 162/93 05/29/19 15:27 Pulse Ox 98 05/29/19 16:01 05/29/19 05/29/19 05/29/19 06:59 14:59 22:59 Intake Total 240 / 240 Balance 240 / 240 Weight last 48 hrs Weight 216 lb 1.6 oz Weight 210 lb Physical Exam Const: COMMON NORMALS: oriented x3 and alert ORIENTATION/CONSCIOUSNESS: Yes oriented to person, Yes oriented to place and Yes oriented to time HENMT: COMMON NORMALS: normocephalic HEAD & SCALP: normocephalic; no cranial bruits Neck/C-Spine: COMMON NORMALS: full ROM, supple, no JVD and no carotid bruits GENERAL: Yes trachea midline CERVICAL SPINE: Yes cervical ROM normal Chest: COMMONS NORMALS: inspection of chest normal and palpation of chest normal Resp: COMMON NORMALS: normal respiratory effort, no use of accessory muscles, clear to auscultation bilaterally and percussion normal EFFORT & INSPECTION: Yes able to speak in complete sentences and Yes symmetric chest movement AUSCULTATION: clear to auscultation bilaterally PERCUSSION: percussion normal Cardio: COMMON NORMALS: no JVD, regular rate, regular rhythm, S1 normal heart sound, S2 normal heart sound, no gallops, no murmurs, no rub and peripheral pulses 2+ throughout JUGULAR VENOUS DISTENTION: no JVD RATE: regular rate RHYTHM: regular rhythm HEART SOUNDS: S1 normal and S2 normal PERIPHERAL PULSES: pulses 2+ throughout Neuro: COMMON NORMALS: oriented x3, no focal motor deficits and no sensory deficits noted SENSORIUM/ORIENTATION: Yes alert, Yes oriented to person, Yes oriented to place and Yes oriented to time GAIT: Yes normal gait Psych: COMMON NORMALS: mental status grossly normal, thought process normal, cooperative and speech normal APPEARANCE: Yes grossly normal SPEECH: Yes normal speech MOOD & AFFECT: Yes anxious THOUGHT PROCESS: normal thought process ATTENTION/CONCENTRATION: Yes attention grossly intact and Yes concentration grossly intact Skin: COMMON NORMALS: no rashes or lesions noted GENERAL SKIN EXAM: no rashes or lesions noted A&P Assessment and plan (1) Non-ST elevation [place] (NSTEMI): 48-year-old gentleman admitted with non-STEMI and several week history of chest discomfort. Left heart catheterization revealed total RCA and high-grade proximal LAD lesion as well as disease of a circumflex and OMB branch. Ejection fraction 50 to 55%. Due to the complexity of his stenoses as well as a totally occluded RCA, surgery revascularization is been recommended by Dr. Crockett. I have personally reviewed the cardiac catheterization and conferred with Dr. Crockett. Rationale for CABG was frankly and carefully discussed with Mr. Breen and his who participated by [employer]. I have personally reviewed with him and his he is specific anatomy in the general conduct for coronary bypass surgery and expected hospital convalescence. We are currently continuing with preoperative evaluation for tentative plan for surgery on May 30. He did receive a loading dose of Plavix upon presentation to the emergency department, therefore it would be beneficial to wait another 24 hours as long as he remains pain-free. Details and risks of CABG were carefully and frankly reviewed. Risks discussed include the possibility of , stroke, heart attack, major bleeding possibly requiring the need to reopen chest, infection, pneumonia, organ failure, failure to benefit, early closure of the bypass grafts, inability to complete the procedure, prolonged hospitalization, blood clots to lungs or other organs, need for further interventions, continued pain after surgery, need for future surgery, and possible long-term bleeding risk secondary to medication requirements. All questions were answered. He and his stated understanding. Status: Acute Consult Attestations Medical Necessity Statement: Non-STEMI with severe three-vessel coronary artery disease Time Spent in Patient Care: Greater than 35 minutes Coding Level of Care Code Acute Industrial Plant Custodian for [facility] Diagnoses Non-ST elevation [place] (NSTEMI) I21.4
--- NOTE | 2019-05-29 18:13 | PC.OT ---
OT note: Pre-op CABG education completed. Pt educated about therapy post surgery, sternal precautions (given handout as well), and purpose of OT. Pt verbalized understanding. Encouraged to practice supine to sit and sit to stand without using UEs prior to his surgery.
[2019-05-29 18:17] LABS: Add Urine Microscopic? NO
[2019-05-29 18:58] LABS: Basophils % 0.4 %; Eosinophils # 0.4 10^3/uL (0.0-0.8); Eosinophils % 4.8 %; Hematocrit 45.9 % (42.0-52.0); Hemoglobin 14.9 g/dL (11.7-16.6); Lymphocytes # 1.3 10^3/uL (0.8-4.8); Lymphocytes % 16.5 %; Mean Corpuscular HGB Conc 32.5 g/dL (30.0-36.0); Mean Corpuscular Hemoglobin 31.3 pg (28.0-34.0); Mean Corpuscular Volume 96.4 fL (80-94); Mean Platelet Volume 9.5 fL (7.4-10.4); Monocytes # 0.8 10^3/uL (0.2-0.9); Monocytes % 10.2 %; Neutrophils # 5.2 10^3/uL (1.8-7.7); Neutrophils % 67.8 %; Nucleated Red Blood Cells % 0 %; Platelet Count 278 10^3/cmm (130-400); Red Blood Count 4.76 10^6/uL (4.1-5.3); Red Cell Distribution Width 13.3 % (12.1-15.1); White Blood Count 7.7 10^3/uL (4.0-10.0)
--- NOTE | 2019-05-29 19:08 | PC.RESP ---
Pt achieved 3500 on his incentive spirometer.
[2019-05-29 19:30] LABS: Alanine Aminotransferase 20 U/L (0-41); Albumin Level 4.2 g/dL (3.5-5.2); Alkaline Phosphatase 76 IU/L (40-130); Anion Gap 16.3 (5-19); Aspartate Amino Transferase 31 U/L (0-40); Blood Urea Nitrogen 15 mg/dL (6-20); Calcium 9.2 mg/dL (8.5-10.5); Carbon Dioxide 23 mmol/L (22-29); Chloride 103 mmol/L (98-107); Free T4 Free Thyroxine 0.61 ng/dL (0.82-1.77); Glomerular Filtration Rate 79.4 mL/min (90-130); Glucose 105 mg/dL (65-115); Osmolality Calculated 283 mOsm/kg (285-295); Potassium 4.3 mmol/L (3.5-5.1); Sodium 138 mmol/L (136-145); Thyroid Stimulating Hormone 29.65 uIU/mL (0.27-4.20); Total Bilirubin 0.3 mg/dL (0.15-1.2); Total Protein 7.2 g/dL (6.6-8.7)
[2019-05-29 19:33] LABS: Partial Thromboplastin Time 30.8 SECONDS (23.9-36.7)
[2019-05-29 19:52] LABS: Bilirubin Urine Neg (NEGATIVE); Blood Urine Neg (Negative); Glucose Urine UA Norm (Normal); Ketones Urine Negative (Negative); Leukocyte Esterase Urine Negative (Negative); Nitrate Urine Negative (Negative); Protein Urine Neg (Negative); Sulfosalicylic Acid Urine Negative (Negative); Urine Appearance Clear (CLEAR); Urine Color Straw (Yellow); Urobilinogen Urine Norm (Negative); pH Urine 8 (5-7)
[2019-05-29] MEDS: chlorhexidine gluconate 4% Btl 118 mL 1 APPLIC TOPICAL (20:18)
--- NOTE | 2019-05-29 20:21 | PC.NURSE ---
Patient up to shower. Betasept given.
[2019-05-29] MEDS: enoxaparin 100 mg/mL Syringe SUBCUT (20:53)
[2019-05-29] MEDS: temazepam 15 mg Capsule PO (20:54)
--- NOTE | 2019-05-29 23:33 | PC.NURSE ---
Received notice from blood bank that they had 4 unit PRBCs ready for patient.
--- NOTE | 2019-05-29 23:57 | USCV_ITS ---
Jamshid Elliott Age: 48 Gender: M : 1970 Exam Date: 05/29/2019 07:11 Ordering Phys: Saba Conde MD Technologist: Gisela Moreau [place] [facility] [place]: NSTEMI BP: / HR: 50 Rhythm: Sinus Technical Quality: Good MEASUREMENTS (Male / Female) Normal Values 2D ECHO LV Diastolic Diameter PLAX 4.2 cm 4.2 - 5.9 / 3.9 - 5.3 cm LV Systolic Diameter PLAX 3.7 cm LV Chamber Size 4.3 cm IVS Diastolic Thickness 1.5 cm 0.6 - 1.0 / 0.6 - 0.9 cm IVS Systolic Thickness 1.8 cm LVPW Diastolic Thickness 1.1 cm 0.6 - 1.0 / 0.6 - 0.9 cm LVPW Systolic Thickness 1.6 cm RV Chamber Size 2.8 cm LVOT Diameter 2.1 cm LV Ejection Fraction 2D Teich 24.9 % LV Ejection Fraction MOD 2C 54.3 % LV Ejection Fraction 2C AL 56.1 % LA Diameter 3.4 cm LA Width 3.3 cm LA Height 4.5 cm RA Width 3.7 cm RA Height 3.7 cm Aorta at Sinotubular Diameter 3.5 cm M-MODE LV Diastolic Diameter MM 6.1 cm 4.2 - 5.9 / 3.9 - 5.3 cm LV Systolic Diameter MM 3.3 cm LV Ejection Fraction MM Teich 76.9 % IVS Diastolic Thickness MM 0.8 cm 0.6 - 1.0 / 0.6 - 0.9 cm IVS Systolic Thickness MM 1.9 cm LVPW Diastolic Thickness MM 1.1 cm 0.6 - 1.0 / 0.6 - 0.9 cm LVPW Systolic Thickness MM 1.9 cm RV Diastolic Diameter MM 1.0 cm Aortic Annulus Diameter 3.6 cm LA Ao Ratio MM 0.9 MV E Point Septal Separation 0.4 cm DOPPLER AV Peak Velocity 130.0 cm/s LVOT Peak Velocity 95.0 cm/s AV Area Cont Eq vti 2.3 cm squared AV Area Cont Eq pk 2.5 cm squared MV Area PHT 12.2 cm squared Mitral E to A Ratio 0.8 MV E' Velocity 6.0 cm/s Mitral E to MV E' Ratio 9.8 Mitral E to LV E' Lateral Ratio 13.6 Mitral E to LV E' Septal Ratio 7.7 TR Peak Velocity 259.9 cm/s TR Peak Gradient 27.0 mmHg TR Mean Velocity 179.2 cm/s TR Mean Gradient 14.7 mmHg TR Velocity Time Integral 81.4 cm TV Peak E Velocity 80.0 cm/s Right Atrial Pressure 3.0 mmHg Pulmonary Artery Systolic Pressu 30.0 mmHg PV Peak Velocity 61.0 cm/s RV Acceleration Time 0.1 s RV Ejection Time 0.3 s RV AcT/ET 0.3 FINDINGS Left Ventricle The left ventricle is normal in size. The overall left ventricular function is normal with ejection fraction of 60%. In the parasternal short axis view there may be slight hypokinesis of the inferior wall. Normal diastolic function. Right Ventricle Normal right ventricular size and systolic function. Normal right ventricular systolic pressure. Right Atrium The right atrium is normal in size. Left Atrium The left atrium is normal in size. Mitral Valve Structurally normal mitral valve. Trace mitral valve regurgitation. Aortic Valve Structurally normal trileaflet aortic valve. Trace aortic valve regurgitation. No aortic valve stenosis. Tricuspid Valve Structurally normal tricuspid valve without significant stenosis or regurgitation. Pulmonary artery systolic pressure is normal. Pulmonic Valve Pulmonic valve not well visualized. Pericardium Normal pericardium without effusion. Aorta Normal ascending aorta dimension. CONCLUSIONS The left ventricle is normal in size. The overall left ventricular function is normal with ejection fraction of 60%. In the parasternal short axis view there may be slight hypokinesis of the inferior wall. Normal diastolic function. Structurally normal mitral valve. Trace mitral valve regurgitation. Structurally normal trileaflet aortic valve. Trace aortic valve regurgitation. No aortic valve stenosis. There are no prior echocardiogram studies to compare. Dr. Evan Crockett MD (Electronically Signed) Final Date: 29 May 2019 08:07 S
[2019-05-30] VITALS (8 sets, daily range): BP systolic 110–172; BP diastolic 80–108; PULSE 67–92; RESP 14–20; TEMP 36.7–36.9; O2SAT 95–98
[2019-05-30] MEDS: acetaminophen 325 mg Tablet 650 MG PO (03:53)
[2019-05-30 05:34] LABS: Basophils % 0.4 %; Eosinophils # 0.3 10^3/uL (0.0-0.8); Eosinophils % 4.5 %; Hematocrit 46.6 % (42.0-52.0); Hemoglobin 15.1 g/dL (11.7-16.6); Lymphocytes # 1.4 10^3/uL (0.8-4.8); Lymphocytes % 20.3 %; Mean Corpuscular HGB Conc 32.4 g/dL (30.0-36.0); Mean Corpuscular Hemoglobin 30.8 pg (28.0-34.0); Mean Corpuscular Volume 94.9 fL (80-94); Mean Platelet Volume 9.6 fL (7.4-10.4); Monocytes # 0.7 10^3/uL (0.2-0.9); Neutrophils # 4.5 10^3/uL (1.8-7.7); Neutrophils % 64.7 %; Nucleated Red Blood Cells % 0 %; Platelet Count 295 10^3/cmm (130-400); Red Blood Count 4.91 10^6/uL (4.1-5.3); Red Cell Distribution Width 13.2 % (12.1-15.1); White Blood Count 6.9 10^3/uL (4.0-10.0)
[2019-05-30] MEDS: nitroglycerin 1 gm/inch oint Pkt 0.5 INCH TOPICAL ×4 (05:54→21:28)
[2019-05-30 05:56] LABS: Blood Urea Nitrogen 11 mg/dL (6-20); Calcium 9.2 mg/dL (8.5-10.5); Carbon Dioxide 21 mmol/L (22-29); Chloride 102 mmol/L (98-107); Glomerular Filtration Rate 102.7 mL/min (90-130); Glucose 101 mg/dL (65-115); Osmolality Calculated 282 mOsm/kg (285-295); Sodium 138 mmol/L (136-145)
[2019-05-30 05:57] LABS: Anion Gap 19.4 (5-19); Potassium 4.4 mmol/L (3.5-5.1)
--- NOTE | 2019-05-30 07:30 | PM.PN ---
Subjective Subjective: Interval history: Uneventful night. Patient was started back on Lovenox yesterday by the hospitalist. Plavix has been held. Dr. Mendoza saw the patient yesterday. Medications: Reviewed: Yes Vitals/I&O/Wt Last Vital Signs Temp 98.3 F 05/30/19 07:20 Pulse 77 05/30/19 07:20 Resp 16 05/30/19 07:20 BP 138/90 05/30/19 07:20 Pulse Ox 95 05/30/19 07:20 05/29/19 05/30/19 05/30/19 22:59 06:59 14:59 Intake Total 240 / 480 Output Total 470 / 470 260 / 260 Balance -230 / 10 -260 / -260 Weight last 48 hrs Weight 208 lb 5 oz Weight 216 lb 1.6 oz Weight 210 lb Physical Exam Narrative: EXAM NARRATIVE: GENERAL: Comfortable at rest HEENT: Exam within normal limits. NECK: Supple without jugular vein distention. The carotid upstroke is normal without bruits. BACK: Exam normal. LUNGS: Clear. HEART: Regular rate and rhythm. ABDOMEN: Benign without organomegaly or tenderness. EXTREMITIES: No edema. Right radial entry site flat and dry without any bleeding NEUROLOGIC: Exam normal. SKIN: Unremarkable. Data : 05/30/19 05:02 05/30/19 05:02 A&P Assessment and plan (1) Borderline hypertension: Status: Acute (2) Nicotine dependence, cigarettes, uncomplicated: Status: Chronic (3) Non-ST elevation [place] (NSTEMI): Status: Acute Additional A&P Information CABG tomorrow. Wipe off nitrates if headache returns. 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
[2019-05-30] MEDS: chlorhexidine gluconate 0.12% Btl 473 mL 15 ML MUCOUS MEM ×2 (09:49→21:29)
[2019-05-30] MEDS: aspirin 81 mg EC Tablet PO (09:49)
[2019-05-30] MEDS: mupirocin oint 22 gm 1 APPLIC NASAL ×2 (09:49→21:28)
[2019-05-30] MEDS: ALPRAZolam 0.25 mg Tablet PO (11:56)
--- NOTE | 2019-05-30 11:56 | PC.PT ---
Patient is scheduled for a CABG on 05/31/19. Therapist reviewed Sternal Precautions following surgery with patient. He stated understanding of all precautions and was still in possession of written instructions. Patient reported to therapist that his had undergone a similar procedure and had similar precautions. Therapist informed patient if he thought of any questions or concerns to let his nurse know and we could follow up with any answers for him.
--- NOTE | 2019-05-30 12:23 | PM.PN ---
Subjective Subjective: Interval history: no new complaints today, feels anxious about upcoming surgery tomorrow. Wishes to be with family Medications: Reviewed: Yes Vitals/I&O/Wt Last Vital Signs Temp 98.3 F 05/30/19 11:54 Pulse 67 05/30/19 11:54 Resp 17 05/30/19 11:54 BP 172/108 05/30/19 11:54 Pulse Ox 97 05/30/19 11:54 05/29/19 05/30/19 05/30/19 22:59 06:59 14:59 Intake Total 240 / 480 360 / 360 Output Total 470 / 470 260 / 260 Balance -230 / 10 100 / 100 Weight last 48 hrs Weight 94.489 kg Weight 98.021 kg Weight 95.254 kg Physical Exam Narrative: EXAM NARRATIVE: GEN: Awake, alert and oriented, no acute distress CVS: S1S2 N RS: CTA B/L Abd: Soft, nt/nd , bs+ PROPOSAL REVIEW ANALYST: no focal neuro deficits Data : 05/30/19 05:02 05/30/19 05:02 A&P Assessment and plan (1) Non-ST elevation [place] (NSTEMI): Status: Acute (2) Nicotine dependence, cigarettes, uncomplicated: Half a pack a day, has expressed interest in quitting given the acute event related to his heart Status: Chronic Additional A&P Information #NSTEMI: s/p coronary angiogram yesterday which showed triple vessel disease with occluded RCA. Now planned for CABG with Dr. Mendoza tomorrow Plavix on hold. Last dose lovenox overnight. None further. Currently on lipitor and ASA prn nitroglycerin # h/o hypertension: currently well controlled Full code DVT ppx: SCDs Attestations Medical Necessity Statement*: CABG tomorrow Coding Level of Care Code Acute Clinical Reimbursement Specialist for [facility] Fwd Diagnoses Non-ST elevation [place] (NSTEMI) I21.4 Nicotine dependence, cigarettes, uncomplicated F17.210
[2019-05-30] MEDS: temazepam 15 mg Capsule PO (21:27)
[2019-05-30] MEDS: atorvastatin 40 mg Tablet PO (21:27)
[2019-05-30] MEDS: chlorhexidine gluconate 4% Btl 118 mL 1 APPLIC TOPICAL (21:28)
[2019-05-31] VITALS (52 sets, daily range): BP systolic 82–158; BP diastolic 47–97; PULSE 71–103; RESP 12–20; TEMP 36.4–37.9; O2SAT 94–100
[2019-05-31] MEDS: acetaminophen 325 mg Tablet 650 MG PO (01:16)
--- NOTE | 2019-05-31 05:29 | PC.NURSE ---
Patient up to shower this morning.
[2019-05-31] MEDS: nitroglycerin 1 gm/inch oint Pkt 0.5 INCH TOPICAL (05:30)
[2019-05-31] MEDS: ALPRAZolam 0.25 mg Tablet PO (05:37)
--- NOTE | 2019-05-31 05:43 | PC.NURSE ---
Patient feeling very anxious this morning. Patient stated, I changed my mind. I don't want to do this. Provided reassurance to patient. Educated patient on breathing exercises to help with relaxation. Patient demonstrated. Patient expressed thanks. Xanax given as ordered.
[2019-05-31 05:45] LABS: Basophils # 0.1 10^3/uL (0.0-0.1); Basophils % 0.7 %; Eosinophils # 0.4 10^3/uL (0.0-0.8); Eosinophils % 4.9 %; Hemoglobin 16.4 g/dL (11.7-16.6); Lymphocytes # 1.9 10^3/uL (0.8-4.8); Lymphocytes % 27.2 %; Mean Corpuscular HGB Conc 32.8 g/dL (30.0-36.0); Mean Corpuscular Hemoglobin 30.8 pg (28.0-34.0); Mean Corpuscular Volume 93.8 fL (80-94); Mean Platelet Volume 9.3 fL (7.4-10.4); Monocytes # 0.7 10^3/uL (0.2-0.9); Monocytes % 10.2 %; Neutrophils % 56.9 %; Nucleated Red Blood Cells % 0 %; Platelet Count 327 10^3/cmm (130-400); Red Blood Count 5.33 10^6/uL (4.1-5.3); Red Cell Distribution Width 13.2 % (12.1-15.1); White Blood Count 7.1 10^3/uL (4.0-10.0)
[2019-05-31 06:00] LABS: Alanine Aminotransferase 23 U/L (0-41); Albumin Level 4.7 g/dL (3.5-5.2); Alkaline Phosphatase 88 IU/L (40-130); Anion Gap 16.1 (5-19); Aspartate Amino Transferase 24 U/L (0-40); Blood Urea Nitrogen 17 mg/dL (6-20); Calcium 9.3 mg/dL (8.5-10.5); Carbon Dioxide 26 mmol/L (22-29); Chloride 102 mmol/L (98-107); Globulin 3.2 g/dL (1.3-4.6); Glomerular Filtration Rate 71.1 mL/min (90-130); Glucose 109 mg/dL (65-115); Osmolality Calculated 287 mOsm/kg (285-295); Potassium 4.1 mmol/L (3.5-5.1); Sodium 140 mmol/L (136-145); Total Bilirubin 0.5 mg/dL (0.15-1.2); Total Protein 7.9 g/dL (6.6-8.7)
--- NOTE | 2019-05-31 06:06 | P.PN_ITS ---
Subjective Subjective: Interval history: Mr. Breen rested well last night. No chest pain. He is, as would be expected, a bit anxious this morning. Vitals/I&O/Wt Last Vital Signs Temp 97.9 F 05/31/19 04:00 Pulse 76 05/31/19 04:00 Resp 18 05/31/19 04:00 BP 126/85 05/31/19 04:00 Pulse Ox 96 05/31/19 04:00 05/30/19 05/30/19 05/31/19 14:59 22:59 06:59 Intake Total 600 / 600 480 / 1080 Output Total 260 / 260 Balance 340 / 340 480 / 820 Weight last 48 hrs Weight 210 lb 5 oz Weight 208 lb 5 oz Physical Exam Resp: COMMON NORMALS: clear to auscultation bilaterally AUSCULTATION: clear to auscultation bilaterally Cardio: COMMON NORMALS: regular rate, regular rhythm and S1 normal heart sound RATE: regular rate RHYTHM: regular rhythm HEART SOUNDS: S1 normal Data : 05/31/19 05:38 05/31/19 05:38 A&P Assessment and plan (1) Non-ST elevation GA (NSTEMI): Preoperative CABG work-up has been completed. I again reviewed the plans for the day, risk of surgery, as well as our routine postoperative course. He wishes to proceed. Status: Acute Attestations Medical Necessity Statement*: Severe three-vessel coronary artery disease with a non-STEMI Time Spent in Patient Care: less than 15 minutes Coding Level of Care Code Acute Videotape Recording Engineer for Tucker Siegel Diagnoses Non-ST elevation [place] (NSTEMI) I21.4
[2019-05-31 06:12] LABS: Free T4 Free Thyroxine 0.61 ng/dL (0.82-1.77); T3 Free 2.5 PG/ML (2.0-4.4)
[2019-05-31] MEDS: sodium chloride 0.9% 1,000 ML 30 ML IV (06:39)
[2019-05-31] MEDS: cefUROXime 1,500 MG in sodium chloride 0.9% (plus) 50 ML 100 MG IV ×2 (07:40→13:00)
--- NOTE | 2019-05-31 08:10 | SUR.OPER ---
0750 PT (RO) NOTIFIED OF SURGERY START AND UPDATED ON PT CONDITION.
[2019-05-31] MEDS: vancomycin 1,000 MG SDV 3000 MG IRRIGATION (08:18)
[2019-05-31] MEDS: sodium bicarbonate 1 mEq/mL SDV 50mL 0.7 MEQ IRRIGATION (08:21)
[2019-05-31] MEDS: heparin, porcine 1,000 unit/mL INJ 10 mL 1750 UNIT IRRIGATION (08:22)
--- NOTE | 2019-05-31 10:13 | SUR.OPER ---
2267 ATTEMPT TO NOTIFY FAMILY OF PT PROGRESS, PHONE NUMBER GIVEN NOT WORKING. 1002 PT ON BYPASS, ICU NOTIFIED, FAMILY ATTEMPTED AGAIN, RECEIVED SAME MESSAGE FROM PHONE 1013 FAMILY ATTEMPTED AGAIN, NO CHANGE
--- NOTE | 2019-05-31 10:50 | SUR.OPER ---
1050 PT FAMILY NOTIFIED OF PT PROGRESS AND CONDITION
--- NOTE | 2019-05-31 12:26 | SUR.OPER ---
1226 PT OFF BYPASS, ICU NOTIFIED
--- NOTE | 2019-05-31 12:37 | SUR.OPER ---
1238 FAMILY (RO) NOTIFIED OF PT CONDITION
--- NOTE | 2019-05-31 13:52 | XR_ITS ---
WS: [id number] CHEST XRAY TECHNIQUE: Portable chest. CLINICAL INFORMATION: POST OP CABG COMPARISON: None. FINDINGS: Postoperative CABG. Endotracheal tube with tip above the archie. Enteric tube with tip in the proxima l stomach. Right IJ sheath. Aspen-Dick catheter. Left chest tube in place. Cardiomegaly with mild pulm onary vascular congestion. Shallow inspiration. No definite pneumothorax. XR/XR chest 1V portable [id number] IMPRESSION: 1. Postoperative sternotomy with CABG and mediastinal drains 2. Left chest tube in place. No visualized pneumothorax. 3. Cardiomegaly with mild pulmonary vascular congestion. 4. Endotracheal tube with tip above the archie. Enteric tube with tip in the p roximal stomach.
--- NOTE | 2019-05-31 14:14 | SUR.OPER ---
1410 REPORT CALLED TO ICU, ABBY DUARTE. NO QUESTIONS AT THIS TIME. 1415 PT FAMILY UPDATED ON PT CONDITION AND WILL CALL WHEN ICU IS READY.
--- NOTE | 2019-05-31 15:17 | ECG_ITS ---
Measurements Intervals [place] Rate: 97 P: 73 KS: 150 QRS: -18 QRSD: 87 T: 84 QT: 336 QTc: 428 SINUS RHYTHM LOW QRS VOLTAGE IN EXTREMITY LEADS [QRS DEFLECTION < 0.5 mV IN LIMB LEADS] INFERIOR MYOCARDIAL INFARCTION [40+ ms Q WAVE AND/OR ST/T ABNORMALITY IN II/aVF], OF INDETERMINATE AGE WITH POSTERIOR EXTENSION Nonspecific ST-T changes in the anterolateral leads. Possible old anterolateral KS compared to ECG 05/28/2019 22:48:47 Low QRS voltage now present Myocardial infarct finding now present Sinus bradycardia no longer present Electronically Signed On 06-01-2019 15:02:04 CDT by Elizabeth Garcia M.D. [email or web address]
[2019-05-31 15:24] LABS: ABG PCO2 50.6 mmHg (35-45); ABG PH Result 7.28 (7.35-7.45); Alveolar-Arterial Oxygen Gradi 389.9 mmHg (5-10); Arterial Blood Gas Hematocrit 40.7 % (42-52); Base Excess ABG -3.5 mmol/L (-2.0-2.0); Blood Gas Sample Site Not specified; Blood Gas Sample Type Arterial; Blood Gas Tidal Volume 0.55; Carboxyhemoglobin 0.8 %THgb (0.4-20.1); HCO3 ABG 23.7 mmol/L (22-26); Ionized Calcium Level - ABG 1.1 mmol/L (1.1-1.4); Methemoglobin 1.1 % (0.4-1.5); Oxygen Device VENT; Oxygen Saturation ABG 97.8; Potassium Level - ABG 4.5 mmol/L (3.5-5.0); Total Hemoglobin 13.3 g/dL (14-18)
--- NOTE | 2019-05-31 15:37 | P.PN_ITS ---
Subjective Subjective: Interval history: Patient has just returned from the operating room after coronary bypass surgery. He is on norepinephrine, epinephrine, dobutamine, propofol and insulin. His blood pressure is high so the norepinephrine and epinephrine are being discontinued. No complications. Vitals/I&O/Wt Last Vital Signs Temp 98.3 F 05/31/19 06:15 Pulse 85 05/31/19 13:53 Resp 18 05/31/19 06:15 BP 83/55 05/31/19 13:53 Pulse Ox 100 05/31/19 13:53 05/31/19 05/31/19 05/31/19 06:59 14:59 22:59 Intake Total 100 / 100 Balance 100 / 100 Weight last 48 hrs Weight 210 lb 5 oz Weight 208 lb 5 oz Physical Exam Narrative: EXAM NARRATIVE: GENERAL: In general he is sedated and still intubated. HEENT: Exam within normal limits. NECK: Supple without jugular vein distention. The carotid upstroke is normal without bruits. BACK: Exam normal. LUNGS: Clear. HEART: Regular rate and rhythm. ABDOMEN: Benign without organomegaly or tenderness. EXTREMITIES: No edema. NEUROLOGIC: Exam normal. SKIN: Unremarkable. Urinary Catheter Management^: العراقي: Cath Placed During This Visit: yes Reason for Continuing Indwelling Catheter: Accurate Measurement of Urinary Output in Critically Ill Patients Urinary Catheter Date of Insertion: 05/31/19 Urinary Catheter Time of Insertion: 07:00 Data : 05/31/19 05:38 05/31/19 05:38 A&P Assessment and plan (1) Borderline hypertension: Status: Acute (2) Nicotine dependence, cigarettes, uncomplicated: Status: Chronic (3) Non-ST elevation [place] (NSTEMI): Status: Acute (4) CAD (coronary artery disease): Status: Acute (5) S/P CABG (coronary artery bypass graft): Status: Acute Additional A&P Information Routine postoperative care. 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
[2019-05-31] MEDS: fentaNYL 50 mcg/mL INJ 2mL IVP (15:56)
[2019-05-31 15:59] LABS: Basophils # 0.1 10^3/uL (0.0-0.1); Basophils % 0.4 %; Eosinophils % 0.2 %; Hematocrit 39.6 % (42.0-52.0); Hemoglobin 12.5 g/dL (11.7-16.6); Lymphocytes # 0.9 10^3/uL (0.8-4.8); Lymphocytes % 5.3 %; Mean Corpuscular HGB Conc 31.6 g/dL (30.0-36.0); Mean Corpuscular Hemoglobin 30.9 pg (28.0-34.0); Mean Corpuscular Volume 97.8 fL (80-94); Mean Platelet Volume 9.5 fL (7.4-10.4); Monocytes # 2.1 10^3/uL (0.2-0.9); Monocytes % 12.9 %; Neutrophils # 13.1 10^3/uL (1.8-7.7); Neutrophils % 80.8 %; Nucleated Red Blood Cells % 0 %; Platelet Count 218 10^3/cmm (130-400); Red Blood Count 4.05 10^6/uL (4.1-5.3); Red Cell Distribution Width 13.3 % (12.1-15.1); White Blood Count 16.3 10^3/uL (4.0-10.0)
[2019-05-31 16:06] LABS: INR 1.17 (0.8-1.2)
[2019-05-31] MEDS: propofol 1,000 MG/100 ML INJ 5.7 MG IV (16:06)
[2019-05-31 16:07] LABS: Partial Thromboplastin Time 37.5 SECONDS (23.9-36.7)
[2019-05-31] MEDS: sodium chloride 0.9% 1,000 ML 75 ML IV (16:07)
[2019-05-31 16:11] LABS: Anion Gap 13.8 (5-19); Blood Urea Nitrogen 16 mg/dL (6-20); Calcium 7.5 mg/dL (8.5-10.5); Carbon Dioxide 25 mmol/L (22-29); Chloride 109 mmol/L (98-107); Glomerular Filtration Rate 46.2 mL/min (90-130); Glucose 127 mg/dL (65-115); Magnesium 3.4 mg/dL (1.7-2.3); Osmolality Calculated 294 mOsm/kg (285-295); Potassium 4.8 mmol/L (3.5-5.1); Sodium 143 mmol/L (136-145)
--- NOTE | 2019-05-31 16:28 | P.PN_ITS ---
Subjective Subjective: Interval history: s/p CABG earlier today. Brought to ICU post operatively, currently remains intubated, on dobutamine, phenylephrine and levophed. Becomes exteremely agitated on weaning sedation, propofol restarted Medications: Reviewed: Yes Vitals/I&O/Wt Last Vital Signs Temp 98.3 F 05/31/19 06:15 Pulse 98 05/31/19 16:15 Resp 19 H 05/31/19 16:15 BP 108/66 05/31/19 16:15 Pulse Ox 97 05/31/19 16:15 05/31/19 05/31/19 05/31/19 06:59 14:59 22:59 Intake Total 4100 / 4100 Output Total 1880 / 1880 Balance 2220 / 2220 Weight last 48 hrs Weight 95.396 kg Weight 94.489 kg Physical Exam Narrative: EXAM NARRATIVE: GEN: Intubated, sedated HEENT: ETT in place,minimal secretions CVS: S1S2 N RS: CTA B/L Abd: Soft, nt/nd , bs+ SUPPLIER QUALITY MANAGER:unable to assess Urinary Catheter Management^: العراقي: Cath Placed During This Visit: yes Reason for Continuing Indwelling Catheter: Accurate Measurement of Urinary Output in Critically Ill Patients Urinary Catheter Date of Insertion: 05/31/19 Urinary Catheter Time of Insertion: 07:00 Data : 05/31/19 18:40 05/31/19 18:40 A&P Assessment and plan (1) Non-ST elevation [place] (NSTEMI): Status: Acute (2) Nicotine dependence, cigarettes, uncomplicated: Half a pack a day, has expressed interest in quitting given the acute event related to his heart Status: Chronic Additional A&P Information #NSTEMI: s/p CABG today Currently remains intubated, sedated post procedure Currently on 3 pressors, amiodarone periprocedure ppx with cefuroxime off nitroglucerin currently # h/o hypertension: prn hydralazine for now Full code DVT ppx: SCDs Attestations Medical Necessity Statement*: s/p CABG POD 0 Coding Level of Care Code Acute Junior Staff Accountant for [facility] Fwd Diagnoses Non-ST elevation [place] (NSTEMI) I21.4 Nicotine dependence, cigarettes, uncomplicated F17.210
[2019-05-31] MEDS: midazolam 1 mg/mL INJ 2 mL IVP (16:46)
[2019-05-31] MEDS: phenylephrine inj 25 MG in sodium chloride 0.9% 250 ML 90.9 MG IV (17:22)
[2019-05-31] MEDS: chlorhexidine gluconate 0.12% Btl 473 mL 15 ML MUCOUS MEM (18:37)
[2019-05-31] MEDS: phenylephrine inj 25 MG in sodium chloride 0.9% 250 ML 97 MG IV (18:43)
[2019-05-31 18:50] LABS: Basophils % 0.1 %; Eosinophils % 0.1 %; Hematocrit 37.4 % (42.0-52.0); Hemoglobin 12.3 g/dL (11.7-16.6); Lymphocytes # 0.8 10^3/uL (0.8-4.8); Lymphocytes % 5.3 %; Mean Corpuscular HGB Conc 32.9 g/dL (30.0-36.0); Mean Corpuscular Hemoglobin 31.9 pg (28.0-34.0); Mean Corpuscular Volume 96.9 fL (80-94); Mean Platelet Volume 9.8 fL (7.4-10.4); Monocytes # 1.8 10^3/uL (0.2-0.9); Monocytes % 12.3 %; Neutrophils # 12.2 10^3/uL (1.8-7.7); Neutrophils % 81.7 %; Nucleated Red Blood Cells % 0 %; Platelet Count 209 10^3/cmm (130-400); Red Blood Count 3.86 10^6/uL (4.1-5.3); Red Cell Distribution Width 13.6 % (12.1-15.1); White Blood Count 14.9 10^3/uL (4.0-10.0)
[2019-05-31 19:10] LABS: Glucose Point of Care 129 mg/dL (70-110)
[2019-05-31 19:10] LABS: Glucose Point of Care 111 mg/dL (70-110)
[2019-05-31 19:10] LABS: Glucose Point of Care 122 mg/dL (70-110)
[2019-05-31 19:10] LABS: Glucose Point of Care 118 mg/dL (70-110)
[2019-05-31 19:10] LABS: Glucose Point of Care 118 mg/dL (70-110)
[2019-05-31 19:41] LABS: Anion Gap 13.7 (5-19); Blood Urea Nitrogen 17 mg/dL (6-20); Calcium 7.5 mg/dL (8.5-10.5); Carbon Dioxide 23 mmol/L (22-29); Chloride 112 mmol/L (98-107); Glomerular Filtration Rate 49.7 mL/min (90-130); Glucose 166 mg/dL (65-115); Magnesium 3.1 mg/dL (1.7-2.3); Osmolality Calculated 298 mOsm/kg (285-295); Potassium 4.7 mmol/L (3.5-5.1); Sodium 144 mmol/L (136-145)
[2019-05-31] MEDS: aspirin 81 mg Chew Tablet PO (19:41)
[2019-05-31 20:56] LABS: ABG PCO2 38.1 mmHg (35-45); ABG PH Result 7.36 (7.35-7.45); Arterial Blood Gas Hematocrit 39.5 % (42-52); Base Excess ABG -3.4 mmol/L (-2.0-2.0); Blood Gas Allen Test Pos; Blood Gas Sample Site Radial, right; Blood Gas Sample Type Arterial; HCO3 ABG 21.6 mmol/L (22-26); Oxygen Device VENT; PO2 ABG 73.2 mmHg (80.0-100.0)
[2019-05-31] MEDS: albumin 12.5 GM/250 ML VIAL IV ×2 (21:14→23:35)
[2019-05-31] MEDS: LORazepam 2 mg/mL INJ 1 mL 1 MG IVP (22:14)
[2019-05-31 22:57] LABS: Basophils % 0.2 %; Eosinophils % 0.1 %; Hematocrit 35.1 % (42.0-52.0); Hemoglobin 11.3 g/dL (11.7-16.6); Lymphocytes # 0.9 10^3/uL (0.8-4.8); Lymphocytes % 7.3 %; Mean Corpuscular HGB Conc 32.2 g/dL (30.0-36.0); Mean Corpuscular Hemoglobin 31.8 pg (28.0-34.0); Mean Corpuscular Volume 98.9 fL (80-94); Mean Platelet Volume 9.9 fL (7.4-10.4); Monocytes # 1.7 10^3/uL (0.2-0.9); Monocytes % 13.1 %; Nucleated Red Blood Cells % 0 %; Platelet Count 206 10^3/cmm (130-400); Red Blood Count 3.55 10^6/uL (4.1-5.3); Red Cell Distribution Width 13.8 % (12.1-15.1); White Blood Count 12.6 10^3/uL (4.0-10.0)
[2019-05-31 23:11] LABS: Anion Gap 13.1 (5-19); Blood Urea Nitrogen 18 mg/dL (6-20); Calcium 7.4 mg/dL (8.5-10.5); Carbon Dioxide 23 mmol/L (22-29); Chloride 114 mmol/L (98-107); Glomerular Filtration Rate 49.7 mL/min (90-130); Glucose 140 mg/dL (65-115); Osmolality Calculated 299 mOsm/kg (285-295); Potassium 5.1 mmol/L (3.5-5.1); Sodium 145 mmol/L (136-145)
[2019-06-01] VITALS (77 sets, daily range): BP systolic 84–131; BP diastolic 46–76; PULSE 69–96; RESP 10–35; TEMP 36.8–37.4; O2SAT 88–100
--- NOTE | 2019-06-01 | XRR_ITS ---
PROCEDURE INFORMATION: Exam: XR Chest, 1 View Exam date and time: 06/01/2019 3:08 AM Age: 48 years old Clinical indication: Device placement; Prior surgery; Surgery type: S/P cabg day 1; Patient HX: Check for et/og tube placement; Additional info: Et/og placement TECHNIQUE: Imaging protocol: XR of the chest Views: 1 view. COMPARISON: CR XR chest 1V portable [id number] 05/31/2019 2:45 PM FINDINGS: Tubes, catheters and devices: The archie is not visible. The endotracheal tube tip lies just above the expected position of the archie. Lungs are symmetrically inflated. The nasogastric tube is positioned in the stomach, well beyond the diaphragmatic hiatus. The tip is not imaged. There is a left chest tube and dual mediastinal drains. Lungs: Lungs are clear. Pleural space: There is no pleural effusion or pneumothorax. Heart/Mediastinum: Cardiomediastinal contours are unremarkable. Vasculature: There is a vascular sheath in the right internal jugular vein. There is a right internal jugular central venous catheter appropriately positioned with the tip in the lower SVC near the cavoatrial junction. Bones/joints: Sternal wires are present. There is no displacement to suggest sternal dehiscence. XR/XR chest 1V portable [id number] IMPRESSION: 1. The endotracheal tube tip lies above the expected position of the archie. The archie is not visible. 2. Additional lines and tubes as above. 3. Improved aeration of both lungs since yesterday.
[2019-06-01] MEDS: morphine 4 mg/mL SDV 1 mL 2 MG IVP ×4 (00:04→19:41)
[2019-06-01] MEDS: albumin 12.5 GM/250 ML VIAL IV (00:24)
[2019-06-01] MEDS: cefUROXime 1,500 MG in sodium chloride 0.9% (plus) 50 ML 100 MG IV (00:59)
--- NOTE | 2019-06-01 01:04 | PC.NURSE ---
0030 - Right IJ swan pulled out while patient moving around in bed. Unable to maintain sedation level. Respiratory therapist to bedside and patient evaluated. Extubated and placed on 4L per NC. Tolerated well. Patient remains very anxious and hollering.
[2019-06-01] MEDS: LORazepam 2 mg/mL INJ 1 mL 1 MG IVP (01:53)
[2019-06-01] MEDS: fentaNYL 50 mcg/mL INJ 2mL IVP (02:04)
--- NOTE | 2019-06-01 02:47 | PM.PN ---
Subjective Subjective: Interval history: Nursing service reports patient become quite combative is pulled out IVs and [place]. He is not responded to any type of prior sedation matters. I recommended full sedation, controlled airway and intubation. This has just been completed by our anesthesia colleagues. Currently vital signs are stable though he is a bit tachycardic. Currently pending chest x-ray. Chest tube output 300 cc Vitals/I&O/Wt Last Vital Signs Temp 98.3 F 05/31/19 06:15 Pulse 83 06/01/19 02:15 Resp 18 06/01/19 02:15 BP 110/63 06/01/19 02:15 Pulse Ox 94 06/01/19 02:15 05/31/19 05/31/19 06/01/19 14:59 22:59 06:59 Intake Total 4100 / 4100 957.888 / 5057.888 956.478 / 6014.366 Output Total 1880 / 1880 980 / 2860 370 / 3230 Balance 2220 / 2220 -22.112 / 2197.888 586.478 / 2784.366 Weight last 48 hrs Weight 210 lb 5 oz Weight 208 lb 5 oz Physical Exam Chest: COMMONS NORMALS: inspection of chest normal (Dressings are in place and chest wall appears to be stable, will review chest x-ray) Resp: COMMON NORMALS: clear to auscultation bilaterally (Currently intubated with respirations ventilated and controlled) AUSCULTATION: clear to auscultation bilaterally (Currently intubated with respirations ventilated and controlled) Cardio: COMMON NORMALS: regular rhythm RATE: tachycardic RHYTHM: regular rhythm Urinary Catheter Management^: العراقي: Cath Placed During This Visit: yes Reason for Continuing Indwelling Catheter: Accurate Measurement of Urinary Output in Critically Ill Patients Urinary Catheter Date of Insertion: 05/31/19 Urinary Catheter Time of Insertion: 07:00 Data : 05/31/19 22:30 05/31/19 22:30 A&P Assessment and plan (1) S/P CABG (coronary artery bypass graft): First morning status post CABG gentleman with severe agitation and combativeness requiring full sedation, paralytic intubation and control of airway. Plan: We will keep intubated for the next 12 hours or so and reassess new sedation withdrawal Avenues prior to reattempted extubation. Status: Acute Attestations Medical Necessity Statement*: Status post CABG Time Spent in Patient Care: Greater than 35 minutes Coding Level of Care Code Acute Weaving Supervisor for [facility] Fwd Diagnoses S/P CABG (coronary artery bypass graft) Z95.1
[2019-06-01] MEDS: fentaNYL 50 mcg/mL INJ 2mL 100 MCG IVP ×2 (02:55→03:31)
[2019-06-01] MEDS: oxyCODONE-APAP 5-325 mg Tablet PO ×4 (03:04→20:45)
--- NOTE | 2019-06-01 03:20 | PC.NURSE ---
0222 - Notified Dr. Mendoza that patient has been extubated and is very anxious and has pulled Right IJ SWAN Dick cath out and has pulled an PIV out. Notified Dr. Mendoza of all sedative medications given. Order given to call Anesthesiology neon glass blower and re-intubate patient so we can sedate him for his safety. 0245 - SID Levine at bedside, order given for intubation meds per Dr. Mendoza. 0300 - Patient intubated x 1 attempt, 8.[address] at 23 at lips. OG tube placed. Placement verified via x-ray, Dr. Mendoza at bedside.
[2019-06-01 03:22] LABS: ABG PCO2 43.1 mmHg (35-45); ABG PH Result 7.33 (7.35-7.45); Alveolar-Arterial Oxygen Gradi 206.3 mmHg (5-10); Arterial Blood Gas Hematocrit 30.1 % (42-52); Base Excess ABG -2.8 mmol/L (-2.0-2.0); Blood Gas Allen Test Pos; Blood Gas Sample Site Radial, right; Blood Gas Sample Type Arterial; Carboxyhemoglobin 0.9 %THgb (0.4-20.1); HCO3 ABG 22.9 mmol/L (22-26); HGB O2 Sat 95.4 % (95-100); Methemoglobin 1.1 % (0.4-1.5); Oxygen Device VENT; Oxygen Saturation ABG 97.3; PO2 ABG 86.8 mmHg (80.0-100.0); Potassium Level - ABG 4.9 mmol/L (3.5-5.0); Total Hemoglobin 9.8 g/dL (14-18)
[2019-06-01 03:24] LABS: Basophils % 0.2 %; Eosinophils % 0.1 %; Hematocrit 29.1 % (42.0-52.0); Hemoglobin 9.3 g/dL (11.7-16.6); Lymphocytes # 0.9 10^3/uL (0.8-4.8); Lymphocytes % 8.5 %; Mean Corpuscular Hemoglobin 31.4 pg (28.0-34.0); Mean Corpuscular Volume 98.3 fL (80-94); Monocytes # 1.6 10^3/uL (0.2-0.9); Monocytes % 14.8 %; Neutrophils # 8.1 10^3/uL (1.8-7.7); Neutrophils % 75.9 %; Nucleated Red Blood Cells % 0 %; Platelet Count 191 10^3/cmm (130-400); Red Blood Count 2.96 10^6/uL (4.1-5.3); Red Cell Distribution Width 13.8 % (12.1-15.1); White Blood Count 10.6 10^3/uL (4.0-10.0)
[2019-06-01] MEDS: succinylcholine 20 mg/mL SDV 10mL 100 MG IVP (03:26)
--- NOTE | 2019-06-01 03:26 | ANES.PROC ---
Anesthesia Procedures Procedure/Date: 06/01/19 Intubation: Time Out Performed: Yes Consent: emergency procedure Sedative (amount): other (versed 10mg and Fentanyl 100mcg) Paralytic (amount): succinylcholine (100mg) Laryngoscope: Pedro (3) ET Tube Size: 8 ET Tube Uncuffed: Yes Tube Secured Depth (cm): 22 Tube Secured Location: lips Tube Placement Confirmation: visualized tube passing through cords, equal breath sounds bilaterally, confirmation by capnometry and color change noted Patient Tolerated Procedure: well and no complications Intubation Complications: none
[2019-06-01 03:41] LABS: Anion Gap 13.4 (5-19); Blood Urea Nitrogen 17 mg/dL (6-20); Calcium 7.2 mg/dL (8.5-10.5); Carbon Dioxide 23 mmol/L (22-29); Chloride 114 mmol/L (98-107); Glomerular Filtration Rate 58.7 mL/min (90-130); Glucose 121 mg/dL (65-115); Magnesium 2.8 mg/dL (1.7-2.3); Osmolality Calculated 298 mOsm/kg (285-295); Potassium 5.4 mmol/L (3.5-5.1); Sodium 145 mmol/L (136-145)
[2019-06-01] MEDS: sodium chloride 0.9% 1,000 ML 75 ML IV ×2 (05:45→20:49)
--- NOTE | 2019-06-01 06:00 | ECG_ITS ---
Measurements Intervals [place] Rate: 78 P: 52 HI: 162 QRS: -21 QRSD: 81 T: 29 QT: 371 QTc: 424 SINUS RHYTHM BORDERLINE LEFT AXIS DEVIATION [QRS AXIS < -20] ST ELEVATION, PROBABLY EARLY REPOLARIZATION [ST ELEVATION WITH NORMALLY INFLECTED T WAVE] Diffuse ST depression, consider pericarditis INTERPRETATION BASED ON A DEFAULT AGE OF 40 YEARS Compared to ECG 05/28/2019 22:48:47 ST (T wave) deviation now present Early repolarization now present Sinus bradycardia no longer present Electronically Signed On 06-01-2019 15:03:31 CDT by Elizabeth Garcia M.D. [id number]
[2019-06-01 06:23] LABS: INR 1.12 (0.8-1.2)
[2019-06-01 06:24] LABS: Partial Thromboplastin Time 32.2 SECONDS (23.9-36.7)
--- NOTE | 2019-06-01 08:20 | ANE.PACU2 ---
 Inpatient post-anesthesia follow up: Airway intact: No Vital signs: Temperature 98.7 F Pulse Rate [Monito r] 76 Pulse Rate 86 Respiratory Rate 20 Blood Pressure [Le ft Arm] 142/89 Blood Pressure 121/66 Pulse Oximetry 99 Oxygen Delivery Me thod [ Room Air Current Rate & Del wilfrido] Oxygen Delivery Me thod Nasal Cannula Oxygen Flow Rate 3 Fraction of Inspir ed Oxygen 30 Hydration adequate: Yes Nausea and vomiting: No Mental status: Altered Additional Comments: patient re-intubated last night after trial of extubation has since been re-extubated since exam this morning
[2019-06-01 09:09] LABS: Glucose Point of Care 105 mg/dL (70-110)
[2019-06-01 09:09] LABS: Glucose Point of Care 124 mg/dL (70-110)
[2019-06-01 09:09] LABS: Glucose Point of Care 119 mg/dL (70-110)
[2019-06-01 09:09] LABS: Glucose Point of Care 111 mg/dL (70-110)
[2019-06-01 09:09] LABS: Glucose Point of Care 98 mg/dL (70-110)
[2019-06-01 09:09] LABS: Glucose Point of Care 114 mg/dL (70-110)
[2019-06-01 09:09] LABS: Glucose Point of Care 103 mg/dL (70-110)
[2019-06-01 09:09] LABS: Glucose Point of Care 104 mg/dL (70-110)
[2019-06-01 09:09] LABS: Glucose Point of Care 126 mg/dL (70-110)
[2019-06-01 09:09] LABS: Glucose Point of Care 130 mg/dL (70-110)
[2019-06-01 09:09] LABS: Glucose Point of Care 95 mg/dL (70-110)
[2019-06-01 09:09] LABS: Glucose Point of Care 95 mg/dL (70-110)
[2019-06-01 09:09] LABS: Glucose Point of Care 116 mg/dL (70-110)
[2019-06-01 09:09] LABS: Glucose Point of Care 110 mg/dL (70-110)
[2019-06-01] MEDS: pantoprazole 40 mg SDV IVP (09:20)
[2019-06-01] MEDS: aspirin 81 mg Chew Tablet PO (09:21)
[2019-06-01] MEDS: chlorhexidine gluconate 0.12% Btl 473 mL 15 ML MUCOUS MEM (09:23)
--- NOTE | 2019-06-01 09:37 | PC.NURSE ---
pt awaken with no decrease in sedation instantly started pulling at lines and chest tube .. unable to came pt down at this time at bedside with pt am meds given and pain med .. talked with who related that the way my dev is .
--- NOTE | 2019-06-01 09:39 | PC.NURSE ---
precidex gtt started at this time
--- NOTE | 2019-06-01 10:29 | ECG_ITS ---
Measurements Intervals [place] Rate: 69 P: 64 ND: 156 QRS: 0 QRSD: 81 T: 26 QT: 372 QTc: 399 SINUS RHYTHM LOW QRS VOLTAGE IN PRECORDIAL LEADS [QRS DEFLECTION < 1.0 mV IN CHEST LEADS] POSSIBLE INFERIOR MYOCARDIAL INFARCTION [30 ms Q WAVE IN II/aVF], OF INDETERMINATE AGE Compared to ECG 05/28/2019 22:48:47 Low QRS voltage now present Myocardial infarct finding now present Sinus bradycardia no longer present Electronically Signed On 06-01-2019 15:00:11 CDT by Elizabeth Garcia M.D. [email or web address]
--- NOTE | 2019-06-01 10:48 | PC.NURSE ---
st changes noted on monitor ekg done Dr Garcia here weaning off fent. and versed precidex infusing
--- NOTE | 2019-06-01 11:28 | PM.PN ---
Subjective Subjective: Interval history: Patint switched to precedex infusion this mornign and subsequently extubated. Remains somewhat somnolent post extubation, ablee to open eyes to calling name. Medications: Reviewed: Yes Vitals/I&O/Wt Last Vital Signs Temp 98.3 F 05/31/19 06:15 Pulse 75 06/01/19 11:00 Resp 15 06/01/19 10:56 BP 94/63 06/01/19 11:00 Pulse Ox 97 06/01/19 11:00 05/31/19 06/01/19 06/01/19 22:59 06:59 14:59 Intake Total 957.888 / 5057.888 2117.225 / 7175.113 Output Total 980 / 2860 843 / 3703 125 / 125 Balance -22.112 / 2197.888 1274.225 / 3472.113 -125 / -125 Weight last 48 hrs Weight 99.11 kg Weight 95.396 kg Physical Exam Narrative: EXAM NARRATIVE: GEN: somnolent, post extubation breathing non labored, opens eyes to calling name, able to sit up when made to CVS: S1S2 N RS: CTA B/L Abd: Soft, nt/nd , bs+ [employer] 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 to assess Lines: pericardial and chest tubes noted Urinary Catheter Management^: العراقي: Cath Placed During This Visit: yes Reason for Continuing Indwelling Catheter: Accurate Measurement of Urinary Output in Critically Ill Patients Urinary Catheter Date of Insertion: 05/31/19 Urinary Catheter Time of Insertion: 07:00 Data : 06/01/19 03:19 06/01/19 03:19 A&P Assessment and plan (1) Non-ST elevation ID (NSTEMI): Status: Acute (2) Nicotine dependence, cigarettes, uncomplicated: Half a pack a day, has expressed interest in quitting given the acute event related to his heart Status: Chronic Additional A&P Information #NSTEMI: s/p CABG POD 1 Remains on leveophed, off dobutamine and phenylephrine, titrate as tolerated post op wound and drain care per CTS HB stable Extubated today, closely monitor mental status # h/o hypertension: prn hydralazine for now, currently well controlled Full code DVT ppx: SCDs Attestations Medical Necessity Statement*: post op from CABG day 1 Coding Level of Care Code Acute Rotor Pilot for Chg Fwd Diagnoses Non-ST elevation ID (NSTEMI) I21.4 Nicotine dependence, cigarettes, uncomplicated F17.210
--- NOTE | 2019-06-01 11:54 | PC.OT ---
OT EVALUATION HELD PATIENT IS CURRENTLY INTUBATED.
--- NOTE | 2019-06-01 12:32 | PC.NURSE ---
extubated and placed on nc at this time following commands
--- NOTE | 2019-06-01 12:40 | P.OP_ITS ---
Operative Report Date of procedure: May 31, 2019 Pre-op Diagnosis: Severe CAD; NSTEMI Post-op diagnosis: same Procedure Done: 1. Coronary artery bypass grafting x3 (1 artery and 2 veins) utilizing in situ left internal mammary artery to left anterior descending artery, reverse of his vein graft aorta to distal RCA, and reverse saphenous vein graft aorta to the obtuse marginal branch of the circumflex artery, which was intramyocardial. 2. Endoscopic saphenous vein harvesting of the right greater saphenous vein from the right thigh and leg Surgeon: Gurvinder Mendoza Anesthesia: General Complications: None Condition: stable Disposition: ICU Brief History: 48-year-old gentleman presented with a progressive history of exertional chest pain, becoming much more frequent and requiring minimal effort. Subsequent evaluations revealed by left heart catheterization total occlusion of the RCA and a high-grade long complex LAD stenosis. He was not felt to be an interventional candidate, therefore we referred to consider surgical revascularization. He had received a loading dose of Plavix upon presentation so this does increase his bleeding risk. Appropriate preoperative evaluation was completed and CABG was recommended. Procedure: Details and risks of the surgery were carefully and frankly explained to Mr. Breen and his who participated by video conferencing. Particular risks of this surgery carefully reviewed with them included the possibility of , stroke, heart attack, major bleeding, infection, pneumonia, pain, organ failure, failure to benefit, early closure of the bypass grafts, prolonged hospital stay and subsequent need for further procedures. Increased risks for complications secondary to loading dose of Plavix upon presentation increasing his bleeding risk were carefully reviewed. Patient and family understand these increased risks. All questions were answered and appropriate consents were reviewed and signed. Preoperative education for the patient and the family included both written and video materials. The patient and the family wished to proceed with plans for attempted surgical revascularization for severe coronary artery bypass. PROCEDURE: Preoperative evaluation was obtained from our Anesthesia colleagues and adequate IVs were confirmed. The patient was then taken to the Operating Room Suite where general anesthesia was induced. Appropriate invasive monitoring lines were placed, including large bore peripheral IVs, central line, [place] catheter, العراقي catheter and associated monitoring leads. After careful positioning on the Operating Room table, the patient was subsequently sterilely prepped and draped. The patient then received low-dose Heparin prior to vein harvest. Saphenous vein was harvested by endoscopic technique from the right thigh and leg. Branches were secured with ligature and clips and the vein was extracted from the tunnel without tension. It was then flushed with a Heparin and albumin solution and prepared for grafting. Vein harvest sites were irrigated, platelet poor plasma infused into the tunnel and port sites closed with 3-0 and 4-0 Vicryl Plus suture. Simultaneously with vein harvesting, a median sternotomy was created utilizing a #10 scalpel blade with hemostasis controlled with cautery. After reaching the sternal table, the sternum was divided with a reciprocating saw. Bleeding was controlled with cautery and judicious use of bone wax. Following this, the left chest wall was elevated with a Rultract retractor. The left internal mammary artery was dissected free with branches being secured with clips and cautery. The distal end was left intact. After harvesting of the mammary artery, a left pleural chest tube was then placed. The left chest wall was then lowered and moistened antibiotic-soaked laparotomy pads were placed in the wound, followed by an Ankeney retractor. The sternum was then and the pericardium opened and secured with stay sutures. After inspection, 2-0 pledgeted Ethibond sutures were placed at cannulation sites, at which time the patient was fully heparinized. Following this, the left internal mammary artery was taken down from its distal attachment, flushed with Papaverine solution, prepared for grafting and brisk flow confirmed. A soft bulldog was applied distally. Next, the heart was cannulated with a 22-Trinidadian aortic cannula, two-stage venous cannula and aortic root vent. The patient was subsequently placed on cardiopulmonary bypass and cooled systemically to 34 degrees. Aortic cross-clamp was then carefully placed and 4 degree Celsius cold blood cardioplegia was administered through the aortic root in antegrade fashion. Prompt diastolic arrest was obtained. Left ventricular decompression was confirmed. The heart was cooled systemically with iced saline with an insulation pad in place to protect the phrenic nerve. Throughout the cross-clamp period, at 20-30 minute intervals, antegrade blood cardioplegia was administered to maintain asystole. We then inspected the cardiac surface and coronary anatomy. There was substantial diffuse coronary artery disease with market calcification, p articular involving much the entire length of the RCA. We did extended quite distally to find an adequate target. Discussed was opened up at 1.75 mm in size, and vein was anastomosed distally with 7-0 Prolene suture and proximally to a 4 mm aortotomy with 5-0 Prolene. Attention to a 2 mm OMB branch of the circumflex artery which was intramyocardial. This was opened up and a second vein was anastomosed distally with 7-0 Prolene suture and proximally to the aorta with 5-0 Prolene. With the rewarming phase of bypass continuing, the left internal mammary artery was brought through a left anterior pericardial window into the field. The LAD was opened up in its distal one third and was approximately 2 mm in size. The LEIGH was then anastomosed to the LAD with a running 7-0 Prolene suture. It should be noted that all distal coronary anastomoses were performed over the appropriate size coronary shunt which was removed prior to securing the distal suture line. Following this, aortic cross-clamp was released and de-airing maneuvers were performed through the aortic root vent, as well as being confirmed by transesophageal echocardiography. Dobutamine at 5 mcg per kilogram per minute was administered with good chronotropic and inotropic affect. The heart returned to spontaneous sinus rhythm and did not require cardioversion or pacing. After adequate recovery from the cross-clamp period and confirmation of cardiac stability, the patient was weaned from bypass without difficulty. Venous cannula was removed. Heparin was reversed with Protamine and confirmed by measurement of activated clotting time. The heart was then decannulated and cannulation sites were oversewn as required. Pacing wires were placed and brought through the skin and secured. Radiopaque markers were placed on the vein grafts at the level of aorta. Two mediastinal drains were placed and connected to Pleur-evac suction. The wound was carefully irrigated and hemostasis was confirmed. Ankeney retractor was removed and sponge and needle count was correct. The sternum was then reapproximated very carefully with interrupted #7 stainless steel wire with Surgicel strips used beneath the sternal table. Fascia was closed with #1 Vicryl suture with the next layers being closed with 2-0 and 3-0 suture. The skin was reapproximated carefully in a subcuticular manner. Sterile dressings were applied, followed by a vacuum-assisted dressing. Mr. Breen was carefully removed from the operating room table and transferred to the Intensive Care Unit. His was then counseled by phone as to the details of the proced ure. Dr. Keira was notified of our operative findings and procedure details.
--- NOTE | 2019-06-01 12:42 | P.PN_ITS ---
Subjective Subjective: Interval history: Cardiology coverage This is a postoperative day# 1 for this inpatient who underwent open heart surgery by Dr. Mendoza yesterday. He apparently presented with a non-ST elevation myocardial infarction. Cardiac catheterization revealed severe three-vessel cor onary artery disease. Postoperatively, he was extubated last night. However the patient became extremely combative, pulling out his IV line and [place] catheter. So he had to be sedated and reintubated early this morning. Currently he is on the ventilator and sedated. The IV propofol, fentanyl and Versed are being tapered down. He is on a small dose of vasopressors Medications: Reviewed: Yes Medication Review Details: Current Medications Aspirin (Aspirin Chewable) 81 mg PO DAILY [facility] Last Admin: 06/01/19 09:21 Dose: 81 mg Documented by: Chlorhexidine Gluconate (Perigard) 15 ml MUCOUS MEM BID [facility] Last Admin: 06/01/19 09:23 Dose: 1 applic Documented by: Dextrose (D50w) 25 ml IVP ONCE PRN; Protocol PRN Reason: hypoglycemia protocol Dextrose (D50w) 50 ml IVP PRN PRN; Protocol PRN Reason: hypoglycemia protocol Epinephrine (Vaponephrine) 0.5 ml INHALATION Q6H.RESPIRATORY PRN PRN Reason: Stridor Fentanyl (Sublimaze) 50 mcg IVP Q1H PRN PRN Reason: SEVERE PAIN Last Admin: 06/01/19 02:04 Dose: 50 mcg Documented by: Glucagon (Glucagen) 1 mg IM ONCE PRN; Protocol PRN Reason: Adult Acute Hypoglycemia Prot Hydralazine HCl (Apresoline) 5 mg IVP ONCE PRN PRN Reason: Systolic BP > 140 mmHg Dopamine HCl/Dextrose (Intropin Drip) 400 mg in 250 mls @ 17.887 mls/hr IV CONT PRN; Protocol PRN Reason: Hypotension Nitroglycerin/Dextrose (Nitroglycerin Drip) 50 mg in 250 mls @ 0 mls/hr IV .Q0M ECTOR; Protocol Amiodarone HCl 900 mg/Dextrose/ IV Miscellaneous Supplies 518 mls @ 0 mls/hr IV .Q0M ECTOR; Protocol Stop: 06/01/19 15:16 Cefuroxime Sodium 1,500 mg/ (Sodium Chloride) 50 mls @ 100 mls/hr IV Q12H ECTOR; Protocol Stop: 06/02/19 13:29 Last Infusion: 06/01/19 01:38 Dose: Infused Documented by: Dobutamine HCl/Dextrose (Dobutamine Drip) 500 mg in 250 mls @ 0 mls/hr IV .Q0M PRN; Protocol PRN Reason: Cardiac Output Insulin Human Regular 250 unit (/ Sodium Chloride) 252.5 mls @ 0 mls/hr IV .Q0M ECTOR; Protocol Sodium Chloride (Sodium Chloride 0.9%) 1,000 mls @ 75 mls/hr IV .[id number] ECTOR Last Admin: 06/01/19 05:45 Dose: 75 mls/hr, 75 mls/hr Documented by: Norepinephrine Bitartrate 4 mg (/ Dextrose) 254 mls @ 10.583 mls/hr IV .Q24H PRN; Protocol PRN Reason: HYPOTENSION Last Titration: 06/01/19 06:21 Dose: 37.5 mls/hr, 37.5 mls/hr Documented by: Phenylephrine HCl 25 mg/ (Sodium Chloride) 252.5 mls @ 0 mls/hr IV .Q0M PRN; Protocol PRN Reason: HYPOTENSION Last Titration: 05/31/19 20:53 Dose: Infused Documented by: Propofol (Diprivan) 1,000 mg in 100 mls @ 0 mls/hr IV .Q0M ECTOR; Protocol Last Titration: 05/31/19 18:26 Dose: 0 mcg/kg/min, 0 mls/hr Documented by: Albumin Human (Albumin) 12.5 gm in 250 mls @ 600 mls/hr IV PRN PRN PRN Reason: For CVP < 4 or SBP< 90 Last Infusion: 06/01/19 01:02 Dose: Infused Documented by: Amiodarone HCl 150 mg/Dextrose/ IV Miscellaneous Supplies 103 mls @ 412 mls/hr IV ONCE PRN PRN Reason: . Dextrose (D5w) 500 mls @ 100 mls/hr IV ONCE PRN; Protocol PRN Reason: Adult Acute Hypoglycemia Prot Sodium Nitroprusside 50 mg/ (Dextrose) 252 mls @ 0 mls/hr IV .Q0M ECTOR; Protocol Labetalol HCl 300 mg/ Sodium (Chloride) 300 mls @ 30 mls/hr IV .Q10H PRN; Protocol PRN Reason: Systolic BP > 140 mmHg Midazolam HCl 100 mg/ Sodium (Chloride) 100 mls @ 0 mls/hr IV .Q0M ECTOR; Protocol Last Admin: 06/01/19 05:46 Dose: 6 mg/hr, 6 mls/hr Documented by: Fentanyl 1,000 mcg/ Sodium (Chloride) 100 mls @ 0 mls/hr IV .Q0M ECTOR; Protocol Last Admin: 06/01/19 05:46 Dose: 75 mcg/hr, 7.5 mls/hr Documented by: Phenylephrine HCl 50 mg/ (Sodium Chloride) 505 mls @ 0 mls/hr IV .Q0M PRN; Prot ocol PRN Reason: HYPOTENSION Last Titration: 06/01/19 04:20 Dose: 0 mcg/min, 0 mls/hr Documented by: Dexmedetomidine HCl 400 mcg/ (Sodium Chloride) 104 mls @ 0 mls/hr IV .Q0M ECTOR; Protocol Last Admin: 06/01/19 09:27 Dose: 0.1 mcg/kg/hr, 2.6 mls/hr Documented by: Labetalol HCl (Trandate) 10 mg IVP Q5M PRN PRN Reason: Systolic BP >140 mmHG Lorazepam (Ativan) 1 mg IVP Q4H PRN PRN Reason: ANXIETY Last Admin: 06/01/19 01:53 Dose: 1 mg Documented by: Midazolam HCl (Versed) 1 mg IVP Q1H PRN PRN Reason: Sedation for Hernandez score < 4. Last Admin: 05/31/19 16:46 Dose: 1 mg Documented by: Morphine Sulfate (Morphine) 2 mg IVP Q1H PRN PRN Reason: BREAKTHROUGH PAIN Last Admin: 06/01/19 11:11 Dose: 2 mg Documented by: Naloxone HCl (Narcan) 0.1 mg IVP Q2M PRN PRN Reason: OPIATERV Ondansetron HCl (Zofran) 4 mg IVP Q6H PRN PRN Reason: NAUSEA Oxycodone/Acetaminophen (Percocet 5-325 Mg) 1 - 2 tab PO Q6H PRN PRN Reason: MILD TO MODERATE PAIN Last Admin: 06/01/19 09:21 Dose: 1 tab Documented by: Pantoprazole Sodium (Protonix) 40 mg IVP DAILY [facility] Stop: 06/02/19 08:59 Last Admin: 06/01/19 09:20 Dose: 40 mg Documented by: Vitals/I&O/Wt Last Vital Signs Temp 98.3 F 05/31/19 06:15 Pulse 73 06/01/19 12:00 Resp 15 06/01/19 10:56 BP 84/55 06/01/19 12:00 Pulse Ox 95 06/01/19 12:00 05/31/19 06/01/19 06/01/19 22:59 06:59 14:59 Intake Total 957.888 / 5057.888 2117.225 / 7175.113 Output Total 980 / 2860 843 / 3703 325 / 325 Balance -22.112 / 2197.888 1274.225 / 3472.113 -325 / -325 Weight last 48 hrs Weight 218 lb 8 oz Weight 210 lb 5 oz Physical Exam Narrative: EXAM NARRATIVE: GENERAL: Patient is intubated and sedated. HEENT: Minimal pallor with no icterus or lymphadenopathy. NECK: Trachea appears to be central. No masses noted. No JVD or thyromegaly appreciated. No carotid bruit. RESPIRATORY: Chest is symmetrical. No intercostals muscle retraction or any ac cessory muscle activation. There is no chest wall tenderness. Breath sounds are heard bilaterally. No rales or rhonchi heard. No evidence of any consolidation. BREASTS: Deferred. HEART: The heart sounds are normal no S3 or S4. No significant murmurs. No pericardial rub. ABDOMEN: No vessel pulsations or distention. No tenderness. No organomegaly appreciated. No abdominal bruit. Bowel sounds are normally heard. : Deferred. RECTAL: Deferred. LYMPHATIC: No lymphadenopathy noted in the neck. EXTREMITIES: No edema or cyanosis. No clubbing. The pulses are symmetrical bilaterally. The radial, femoral, dorsalis pedis and the posterior tibial pulses are palpated and found to be in good volume and amplitude. MUSCULOSKELETAL: No acute joint deformities or swelling SKIN: No skin rashes NEUROPSYCHIATRIC: Intubated and sedated as mentioned above. Moves all extremities. Urinary Catheter Management^: العراقي: Cath Placed During This Visit: yes Reason for Continuing Indwelling Catheter: Accurate Measurement of Urinary Output in Critically Ill Patients Urinary Catheter Date of Insertion: 05/31/19 Urinary Catheter Time of Insertion: 07:00 Data : 06/02/19 04:44 06/02/19 04:44 Other Labs: Abnormal lab results 05/29/19 05/31/19 05/31/19 Range/Units 18:30 15:10 15:43 WBC 16.3 H (4.0-10.0) 10^3/uL RBC 4.05 L (4.1-5.3) 10^6/uL Hgb (11.7-16.6) g/dL Hct 39.6 L (42.0-52.0) % MCV 97.8 H (80-94) fL Neut # (Auto) 13.1 H (1.8-7.7) 10^3/uL Barton # (Auto) 2.1 H (0.2-0.9) 10^3/uL PT (10.5-13.3) SECONDS APTT (23.9-36.7) SECONDS ABG pH 7.28 L (7.35-7.45) ABG pCO2 50.6 H (35-45) mmHg ABG pO2 104.0 H (80.0-100.0) mmHg ABG HCO3 (22-26) mmol/L ABG Base Excess -3.5 L (-2.0-2.0) mmol/L A-a O2 Gradient 389.9 H (5-10) mmHg Hematocrit 40.7 L (42-52) % Total Hemoglobin 13.3 L (14-18) g/dL Sodium 144.0 H (131-143) mmol/L Ionized Calcium (1.1-1.4) mmol/L Potassium (3.5-5.1) mmol/L Chloride (98-107) mmol/L Creatinine (0.7-1.2) mg/dL GFR Calculation (90-130) mL/min Glucose (65-115) mg/dL Calculated Osmolality (285-295) mOsm/kg Calcium (8.5-10.5) mg/dL Magnesium (1.7-2.3) mg/dL Crossmatch See Detail 05/31/19 05/31/19 05/31/19 Range/Units 15:43 15:43 18:40 WBC 14.9 H (4.0-10.0) 10^3/uL RBC 3.86 L (4.1-5.3) 10^6/uL Hgb (11.7-16.6) g/dL Hct 37.4 L (42.0-52.0) % MCV 96.9 H (80-94) fL Neut # (Auto) 12.2 H (1.8-7.7) 10^3/uL Barton # (Auto) 1.8 H (0.2-0.9) 10^3/uL PT 15.30 H (10.5-13.3) SECONDS APTT 37.5 H (23.9-36.7) SECONDS ABG pH (7.35-7.45) ABG pCO2 (35-45) mmHg ABG pO2 (80.0-100.0) mmHg ABG HCO3 (22-26) mmol/L ABG Base Excess (-2.0-2.0) mmol/L A-a O2 Gradient (5-10) mmHg Hematocrit (42-52) % Total Hemoglobin (14-18) g/dL Sodium (131-143) mmol/L Ionized Calcium (1.1-1.4) mmol/L Potassium (3.5-5.1) mmol/L Chloride 109 H (98-107) mmol/L Creatinine 1.6 H (0.7-1.2) mg/dL GFR Calculation 46.2 L (90-130) mL/min Glucose 127 H (65-115) mg/dL Calculated Osmolality (285-295) mOsm/kg Calcium 7.5 L (8.5-10.5) mg/dL Magnesium 3.4 H (1.7-2.3) mg/dL Crossmatch 05/31/19 05/31/19 05/31/19 Range/Units 18:40 20:44 22:30 WBC 12.6 H (4.0-10.0) 10^3/uL RBC 3.55 L (4.1-5.3) 10^6/uL Hgb 11.3 L (11.7-16.6) g/dL Hct 35.1 L (42.0-52.0) % MCV 98.9 H (80-94) fL Neut # (Auto) 10.0 H (1.8-7.7) 10^3/uL Barton # (Auto) 1.7 H (0.2-0.9) 10^3/uL PT (10.5-13.3) SECONDS APTT (23.9-36.7) SECONDS ABG pH (7.35-7.45) ABG pCO2 (35-45) mmHg ABG pO2 73.2 L (80.0-100.0) mmHg ABG HCO3 21.6 L (22-26) mmol/L ABG Base Excess -3.4 L (-2.0-2.0) mmol/L A-a O2 Gradient (5-10) mmHg Hematocrit 39.5 L (42-52) % Total Hemoglobin (14-18) g/dL Sodium (131-143) mmol/L Ionized Calcium (1.1-1.4) mmol/L Potassium (3.5-5.1) mmol/L Chloride 112 H (98-107) mmol/L Creatinine 1.5 H (0.7-1.2) mg/dL GFR Calculation 49.7 L (90-130) mL/min Glucose 166 H (65-115) mg/dL Calculated Osmolality 298 H (285-295) mOsm/kg Calcium 7.5 L (8.5-10.5) mg/dL Magnesium 3.1 H (1.7-2.3) mg/dL Crossmatch 05/31/19 06/01/19 06/01/19 Range/Units 22:30 03:10 03:19 WBC 10.6 H (4.0-10.0) 10^3/uL RBC 2.96 L (4.1-5.3) 10^6/uL Hgb 9.3 L (11.7-16.6) g/dL Hct 29.1 L (42.0-52.0) % MCV 98.3 H (80-94) fL Neut # (Auto) 8.1 H (1.8-7.7) 10^3/uL Barton # (Auto) 1.6 H (0.2-0.9) 10^3/uL PT (10.5-13.3) SECONDS APTT (23.9-36.7) SECONDS ABG pH 7.33 L (7.35-7.45) ABG pCO2 (35-45) mmHg ABG pO2 (80.0-100.0) mmHg ABG HCO3 (22-26) mmol/L ABG Base Excess -2.8 L (-2.0-2.0) mmol/L A-a O2 Gradient 206.3 H (5-10) mmHg Hematocrit 30.1 L (42-52) % Total Hemoglobin 9.8 L (14-18) g/dL Sodium 144.0 H (131-143) mmol/L Ionized Calcium 1.0 L (1.1-1.4) mmol/L Potassium (3.5-5.1) mmol/L Chloride 114 H (98-107) mmol/L Creatinine 1.5 H (0.7-1.2) mg/dL GFR Calculation 49.7 L (90-130) mL/min Glucose 140 H (65-115) mg/dL Calculated Osmolality 299 H (285-295) mOsm/kg Calcium 7.4 L (8.5-10.5) mg/dL Magnesium (1.7-2.3) mg/dL Crossmatch 06/01/19 06/01/19 Range/Units 03:19 03:19 WBC (4.0-10.0) 10^3/uL RBC (4.1-5.3) 10^6/uL Hgb (11.7-16.6) g/dL Hct (42.0-52.0) % MCV (80-94) fL Neut # (Auto) (1.8-7.7) 10^3/uL Barton # (Auto) (0.2-0.9) 10^3/uL PT 14.80 H (10.5-13.3) SECONDS APTT (23.9-36.7) SECONDS ABG pH (7.35-7.45) ABG pCO2 (35-45) mmHg ABG pO2 (80.0-100.0) mmHg ABG HCO3 (22-26) mmol/L ABG Base Excess (-2.0-2.0) mmol/L A-a O2 Gradient (5-10) mmHg Hematocrit (42-52) % Total Hemoglobin (14-18) g/dL Sodium (131-143) mmol/L Ionized Calcium (1.1-1.4) mmol/L Potassium 5.4 H (3.5-5.1) mmol/L Chloride 114 H (98-107) mmol/L Creatinine 1.3 H (0.7-1.2) mg/dL GFR Calculation 58.7 L (90-130) mL/min Glucose 121 H (65-115) mg/dL Calculated Osmolality 298 H (285-295) mOsm/kg Calcium 7.2 L (8.5-10.5) mg/dL Magnesium 2.8 H (1.7-2.3) mg/dL Crossmatch A&P Assessment and plan (1) S/P CABG (coronary artery bypass graft): Patient is on postop day 1. He is currently intubated and sedated. Currently he is on a small dose of adenopathies. Hemodynamically seems to be stable Status: Acute (2) Non-ST elevation [place] (NSTEMI): The EKG from today shows some features of anterolateral wall myocardial jury. May do a repeat troponin T tomorrow to follow-up on the trend. No acute changes. Telemetry shows sinus rhythm. No evidence of cardiac arrhythmia. Status: Acute (3) Atherosclerotic heart disease of [place] coronary artery with unstable angina pectoris: Patient has severe three-vessel coronary disease. May restart on Plavix, statin and beta-howard once he is extubated Status: Acute (4) Agitation requiring sedation protocol: Management as per the anesthesia Status: Acute Additional A&P Information Based on the patient clinical progress, further management decisions will be made. 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
[2019-06-01] MEDS: cefUROXime 1,500 MG in sodium chloride 0.9% (plus) 50 ML 50 MG IV (13:56)
--- NOTE | 2019-06-01 16:34 | PC.NURSE ---
weaned off levophed at this time and up in chair taking po liquid with no distress at this time ..
--- NOTE | 2019-06-01 16:50 | PC.NURSE ---
back to bed with assist tolerated well po pain medicine given for chest discomfort
[2019-06-01] MEDS: lanolin oint 7 gm 1 APPLIC TOPICAL (19:41)
[2019-06-01] MEDS: atorvastatin 40 mg Tablet 20 MG PO (20:46)
[2019-06-01 21:10] LABS: Glucose Point of Care 90 mg/dL (70-110)
[2019-06-01 21:10] LABS: Glucose Point of Care 118 mg/dL (70-110)
[2019-06-01 21:10] LABS: Glucose Point of Care 108 mg/dL (70-110)
[2019-06-01 21:10] LABS: Glucose Point of Care 80 mg/dL (70-110)
[2019-06-01 21:10] LABS: Glucose Point of Care 118 mg/dL (70-110)
[2019-06-01 21:10] LABS: Glucose Point of Care 105 mg/dL (70-110)
[2019-06-01 21:10] LABS: Glucose Point of Care 106 mg/dL (70-110)
[2019-06-01 21:10] LABS: Glucose Point of Care 105 mg/dL (70-110)
[2019-06-01 21:10] LABS: Glucose Point of Care 120 mg/dL (70-110)
--- NOTE | 2019-06-01 23:03 | PC.NURSE ---
Wasted 75 mL of Versed drip and 90 mL of Fentanyl drip. Witnessed per Jose G Puente RN.
[2019-06-02] VITALS (31 sets, daily range): BP systolic 104–148; BP diastolic 56–102; PULSE 74–88; RESP 15–30; TEMP 36.7–37; O2SAT 92–100
[2019-06-02] MEDS: morphine 4 mg/mL SDV 1 mL 2 MG IVP ×2 (01:39→09:32)
[2019-06-02] MEDS: cefUROXime 1,500 MG in sodium chloride 0.9% (plus) 50 ML 100 MG IV ×2 (01:50→12:01)
[2019-06-02] MEDS: oxyCODONE-APAP 5-325 mg Tablet PO ×3 (02:50→20:52)
[2019-06-02 05:05] LABS: Basophils % 0.2 %; Eosinophils # 0.1 10^3/uL (0.0-0.8); Eosinophils % 1.5 %; Hematocrit 27.3 % (42.0-52.0); Hemoglobin 8.7 g/dL (11.7-16.6); Lymphocytes # 1.1 10^3/uL (0.8-4.8); Lymphocytes % 11.2 %; Mean Corpuscular HGB Conc 31.9 g/dL (30.0-36.0); Mean Corpuscular Hemoglobin 31.9 pg (28.0-34.0); Mean Platelet Volume 9.9 fL (7.4-10.4); Monocytes # 1.3 10^3/uL (0.2-0.9); Monocytes % 13.6 %; Neutrophils % 73.2 %; Nucleated Red Blood Cells % 0 %; Platelet Count 139 10^3/cmm (130-400); Red Blood Count 2.73 10^6/uL (4.1-5.3); White Blood Count 9.6 10^3/uL (4.0-10.0)
[2019-06-02 05:22] LABS: Anion Gap 13.2 (5-19); Blood Urea Nitrogen 13 mg/dL (6-20); Calcium 7.9 mg/dL (8.5-10.5); Carbon Dioxide 23 mmol/L (22-29); Chloride 104 mmol/L (98-107); Creatinine Clr Calc Pharmacy 149.4162; Glomerular Filtration Rate 119.9 mL/min (90-130); Glucose 111 mg/dL (65-115); Osmolality Calculated 279 mOsm/kg (285-295); Potassium 4.2 mmol/L (3.5-5.1); Sodium 136 mmol/L (136-145)
--- NOTE | 2019-06-02 06:00 | XRR_ITS ---
PROCEDURE INFORMATION: Exam: XR Chest, 1 View Exam date and time: 06/02/2019 5:23 AM Age: 48 years old Clinical indication: Other: Post cabg; Prior surgery; Surgery date: 3-7 days post-operative; Additional info: Pod #2 status post cabg TECHNIQUE: Imaging protocol: XR of the chest Views: 1 view. COMPARISON: CR XR chest 1V portable [id number] 06/01/2019 2:42 AM FINDINGS: Tubes, catheters and devices: Central venous catheters, mediastinal drain, thoracostomy tube are again demonstrated. Interval removal of endotracheal and feeding tubes. Lungs: Hypoinflation and mild airspace disease. Pleural space: No significant pneumothorax or pleural effusion. Heart/Mediastinum: Status post bypass surgery. Borderline cardiomegaly. Diaphragm: Asymmetric elevation of the right hemidiaphragm. Bones/joints: Unremarkable. When correlating with the previous study, no significant interval changes are present. XR/XR chest 1V portable [id number] IMPRESSION: Stable postoperative appearance of the chest, not significantly changed from 06/01/2019 .
[2019-06-02] MEDS: chlorhexidine gluconate 0.12% Btl 473 mL 15 ML MUCOUS MEM ×2 (09:31→16:57)
[2019-06-02] MEDS: FUROsemide 10 mg/mL SDV 2mL 20 MG IVP ×2 (09:32→09:40)
[2019-06-02] MEDS: metoprolol tartrate 25 mg Tablet 12.5 MG PO (09:32)
--- NOTE | 2019-06-02 09:35 | P.PN_ITS ---
Subjective Subjective: Interval history: Postop day #2 status post CABG. Had uneventful night. Still volume positive. Chest tube output is slowly decreasing and it is much more serous. He is in very good spirits and complaining of some sternotomy and back discomfort. There is been no substantial agitation since his most recent extubation. Vitals/I&O/Wt Last Vital Signs Temp 98.0 F 06/02/19 04:00 Pulse 82 06/02/19 09:00 Resp 18 06/02/19 09:00 BP 110/78 06/02/19 09:00 Pulse Ox 99 06/02/19 09:00 06/01/19 06/02/19 06/02/19 22:59 06:59 14:59 Intake Total 1929.405 / 1929.405 772 / 2701.405 300 / 300 Output Total 744 / 1069 597 / 1666 Balance 1185.405 / 860.405 175 / 1035.405 300 / 300 Weight last 48 hrs Weight 222 lb 4.8 oz Weight 218 lb 8 oz Physical Exam Chest: COMMONS NORMALS: inspection of chest normal (Wound VAC dressing over sternotomy incision is intact. Drains are in good position. Chest wall is stable.) Resp: COMMON NORMALS: normal respiratory effort AUSCULTATION: diminished lung sounds (Bases bilaterally, otherwise clear) Cardio: COMMON NORMALS: regular rhythm, S1 normal heart sound and peripheral pulses 2+ throughout RHYTHM: regular rhythm HEART SOUNDS: S1 normal PERIPHERAL PULSES: pulses 2+ throughout Urinary Catheter Management^: العراقي: Cath Placed During This Visit: yes Reason for Continuing Indwelling Catheter: Accurate Measurement of Urinary Output in Critically Ill Patients Urinary Catheter Date of Insertion: 05/31/19 Urinary Catheter Time of Insertion: 07:00 Data : 06/02/19 04:44 06/02/19 04:44 A&P Assessment and plan (1) S/P CABG (coronary artery bypass graft): We will discontinue IV insulin and switch to medium sliding scale Lasix 20 mg IV now Metoprolol 12.5 mg twice daily Aspirin daily DC Cordis CBC, BMP, chest x-ray in a.m. If chest tube output continues to decrease and he continues to progress, will plan to transfer to intermediate care tomorrow. Status: Acute Attestations Medical Necessity Statement*: Postop day #2 status post CABG Time Spent in Patient Care: 16 - 35 minutes Coding Level of Care Code Acute Entry Level Project Engineer for Chg Fwd Diagnoses S/P CABG (coronary artery bypass graft) Z95.1
[2019-06-02] MEDS: aspirin 325 mg Tablet PO (09:39)
[2019-06-02 09:46] LABS: Glucose Point of Care 103 mg/dL (70-110)
[2019-06-02 09:46] LABS: Glucose Point of Care 109 mg/dL (70-110)
[2019-06-02 09:46] LABS: Glucose Point of Care 111 mg/dL (70-110)
[2019-06-02 09:46] LABS: Glucose Point of Care 104 mg/dL (70-110)
[2019-06-02 09:46] LABS: Glucose Point of Care 71 mg/dL (70-110)
[2019-06-02 09:46] LABS: Glucose Point of Care 112 mg/dL (70-110)
[2019-06-02 09:46] LABS: Glucose Point of Care 139 mg/dL (70-110)
[2019-06-02 09:46] LABS: Glucose Point of Care 100 mg/dL (70-110)
[2019-06-02 09:46] LABS: Glucose Point of Care 105 mg/dL (70-110)
[2019-06-02 09:46] LABS: Glucose Point of Care 53 mg/dL (70-110)
[2019-06-02 09:46] LABS: Glucose Point of Care 103 mg/dL (70-110)
[2019-06-02 09:46] LABS: Glucose Point of Care 42 mg/dL (70-110)
--- NOTE | 2019-06-02 09:48 | P.PN_ITS ---
Subjective Subjective: Interval history: This patient is feeling okay. He is extubated. Currently denies any specific symptoms except for the pain at the surgical incision site. The vital signs remained stable. He is off all the vasopressors. Telemetry shows normal sinus rhythm. He is complaining some precordial pain with deep inspiration Medications: Reviewed: Yes Medication Review Details: Current Medications Aspirin (Aspirin) 325 mg PO DAILY [facility] Last Admin: 06/02/19 09:39 Dose: 325 mg Documented by: Atorvastatin Calcium (Lipitor) 20 mg PO BEDTIME ECTOR Last Admin: 06/01/19 20:46 Dose: 20 mg Documented by: Chlorhexidine Gluconate (Perigard) 15 ml MUCOUS MEM BID [facility] Last Admin: 06/02/19 09:31 Dose: 1 applic Documented by: Dextrose (D50w) 25 ml IVP ONCE PRN; Protocol PRN Reason: hypoglycemia protocol Dextrose (D50w) 50 ml IVP PRN PRN; Protocol PRN Reason: hypoglycemia protocol Epinephrine (Vaponephrine) 0.5 ml INHALATION Q6H.RESPIRATORY PRN PRN Reason: Stridor Fentanyl (Sublimaze) 50 mcg IVP Q1H PRN PRN Reason: SEVERE PAIN Last Admin: 06/01/19 02:04 Dose: 50 mcg Documented by: Glucagon (Glucagen) 1 mg IM ONCE PRN; Protocol PRN Reason: Adult Acute Hypoglycemia Prot. Hydralazine HCl (Apresoline) 5 mg IVP ONCE PRN PRN Reason: Systolic BP > 140 mmHg Dopamine HCl/Dextrose (Intropin Drip) 400 mg in 250 mls @ 17.887 mls/hr IV CONT PRN; Protocol PRN Reason: Hypotension Nitroglycerin/Dextrose (Nitroglycerin Drip) 50 mg in 250 mls @ 0 mls/hr IV .Q0M ECTOR; Protocol Cefuroxime Sodium 1,500 mg/ (Sodium Chloride) 50 mls @ 100 mls/hr IV Q12H ECTOR; Protocol Stop: 06/02/19 13:29 Last Infusion: 06/02/19 02:20 Dose: Infused Documented by: Dobutamine HCl/Dextrose (Dobutamine Drip) 500 mg in 250 mls @ 0 mls/hr IV .Q0M PRN; Protocol PRN Reason: Cardiac Output Insulin Human Regular 250 unit (/ Sodium Chloride) 252.5 mls @ 0 mls/hr IV .Q0M ECTOR; Protocol Sodium Chloride (Sodium Chloride 0.9%) 1,000 mls @ 75 mls/hr IV .[id number] ECTOR Last Admin: 06/01/19 20:49 Dose: 75 mls/hr, 75 mls/hr Documented by: Norepinephrine Bitartrate 4 mg (/ Dextrose) 254 mls @ 10.583 mls/hr IV .Q24H PRN; Protocol PRN Reason: HYPOTENSION Last Titration: 06/01/19 19:05 Dose: Infused Documented by: Phenylephrine HCl 25 mg/ (Sodium Chloride) 252.5 mls @ 0 mls/hr IV .Q0M PRN; Protocol PRN Reason: HYPOTENSION Last Titration: 05/31/19 20:53 Dose: Infused Documented by: Propofol (Diprivan) 1,000 mg in 100 mls @ 0 mls/hr IV .Q0M ECTOR; Protocol Last Titration: 05/31/19 18:26 Dose: 0 mcg/kg/min, 0 mls/hr Documented by: Albumin Human (Albumin) 12.5 gm in 250 mls @ 600 mls/hr IV PRN PRN PRN Reason: For CVP < 4 or SBP< 90 Last Infusion: 06/01/19 01:02 Dose: Infused Documented by: Amiodarone HCl 150 mg/Dextrose/ IV Miscellaneous Supplies 103 mls @ 412 mls/hr IV ONCE PRN PRN Reason: . Sodium Nitroprusside 50 mg/ (Dextrose) 252 mls @ 0 mls/hr IV .Q0M ECTOR; Protocol Labetalol HCl 300 mg/ Sodium (Chloride) 300 mls @ 30 mls/hr IV .Q10H PRN; Protocol PRN Reason: Systolic BP > 140 mmHg Midazolam HCl 100 mg/ Sodium (Chloride) 100 mls @ 0 mls/hr IV .Q0M ECTOR; Protocol Last Admin: 06/01/19 05:46 Dose: 6 mg/hr, 6 mls/hr Documented by: Fentanyl 1,000 mcg/ Sodium (Chloride) 100 mls @ 0 mls/hr IV .Q0M ECTOR; Protocol Last Admin: 06/01/19 05:46 Dose: 75 mcg/hr, 7.5 mls/hr Documented by: Phenylephrine HCl 50 mg/ (Sodium Chloride) 505 mls @ 0 mls/hr IV .Q0M PRN; Protocol PRN Reason: HYPOTENSION Last Titration: 06/01/19 04:20 Dose: 0 mcg/min, 0 mls/hr Documented by: Dexmedetomidine HCl 400 mcg/ (Sodium Chloride) 104 mls @ 0 mls/hr IV .Q0M ECTOR; Protocol Last Admin: 06/01/19 09:27 Dose: 0.1 mcg/kg/hr, 2.6 mls/hr Documented by: Dextrose (D5w) 500 mls @ 100 mls/hr IV ONCE PRN; Protocol PRN Reason: Adult Acute Hypoglycemia Prot Insulin Aspart (Novolog) 0 unit SUBCUT WM&BEDTIME ECTOR; Protocol Labetalol HCl (Trandate) 10 mg IVP Q5M PRN PRN Reason: Systolic BP >140 mmHG Lanolin (Lanolin Oint) 1 applic TOPICAL PRN PRN PRN Reason: DRYNESS Last Admin: 06/01/19 19:41 Dose: 1 appful Documented by: Lorazepam (Ativan) 1 mg IVP Q4H PRN PRN Reason: ANXIETY Last Admin: 06/01/19 01:53 Dose: 1 mg Documented by: Midazolam HCl (Versed) 1 mg IVP Q1H PRN PRN Reason: Sedation for Hernandez score < 4. Last Admin: 05/31/19 16:46 Dose: 1 mg Documented by: Morphine Sulfate (Morphine) 2 mg IVP Q1H PRN PRN Reason: BREAKTHROUGH PAIN Last Admin: 06/02/19 09:32 Dose: 2 mg Documented by: Naloxone HCl (Narcan) 0.1 mg IVP Q2M PRN PRN Reason: OPIATERV Ondansetron HCl (Zofran) 4 mg IVP Q6H PRN PRN Reason: NAUSEA Oxycodone/Acetaminophen (Percocet 5-325 Mg) 1 - 2 tab PO Q6H PRN PRN Reason: MILD TO MODERATE PAIN Last Admin: 06/02/19 02:50 Dose: 2 tab Documented by: Vitals/I&O/Wt Last Vital Signs Temp 98.0 F 06/02/19 04:00 Pulse 82 06/02/19 09:00 Resp 18 06/02/19 09:00 BP 110/78 06/02/19 09:00 Pulse Ox 99 06/02/19 09:00 06/01/19 06/02/19 06/02/19 22:59 06:59 14:59 Intake Total 1929.405 / 1929.405 772 / 2701.405 300 / 300 Output Total 744 / 1069 597 / 1666 Balance 1185.405 / 860.405 175 / 1035.405 300 / 300 Weight last 48 hrs Weight 222 lb 4.8 oz Weight 218 lb 8 oz Physical Exam Narrative: EXAM NARRATIVE: GENERAL: Patient is alert and oriented x3 HEENT: Minimal pallor with no icterus or lymphadenopathy. NECK: Trachea appears to be central. No masses noted. No JVD or thyromegaly appreciated. No carotid bruit. RESPIRATORY: Chest is symmetrical. No intercostals muscle retraction or any accessory muscle activation. There is no chest wall tenderness. Breath sounds are heard bilaterally. No rales or rhonchi heard. No evidence of any consolidation. BREASTS: Deferred. HEART: The heart sounds are normal no S3 or S4. No significant murmurs. Pericardial rub is present ABDOMEN: No vessel pulsations or distention. No tenderness. No organomegaly appreciated. No abdominal bruit. Bowel sounds are normally heard. : Deferred. RECTAL: Deferred. LYMPHATIC: No lymphadenopathy noted in the neck. EXTREMITIES: No edema or cyanosis. No clubbing. The pulses are symmetrical bilaterally. The radial, femoral, dorsalis pedis and the posterior tibial pulses are palpated and found to be in good volume and amplitude. MUSCULOSKELETAL: No acute joint deformities or swelling SKIN: No skin rashes NEUROPSYCHIATRIC: Intubated and sedated as mentioned above. Moves all extremities. Urinary Catheter Management^: العراقي: Cath Placed During This Visit: yes Reason for Continuing Indwelling Catheter: Accurate Measurement of Urinary Output in Critically Ill Patients Urinary Catheter Date of Insertion: 05/31/19 Urinary Catheter Time of Insertion: 07:00 Data : 06/02/19 04:44 06/02/19 04:44 A&P Assessment and plan (1) S/P CABG (coronary artery bypass graft): Patient has seems to be doing okay. He has some features of pericarditis. I may do an EKG to further evaluate. Status: Acute (2) Non-ST elevation [place] (NSTEMI): Clinically seems to be stable. The troponin T is pending Status: Acute (3) Atherosclerotic heart disease of [place] coronary artery with unstable angina pectoris: Patient has severe three-vessel coronary disease. May consider starting him on Plavix when it is appropriate, possibly after chest tube removal Status: Acute Qualifiers: [place] vs. transplanted heart: [place] heart Qualified Code(s): I25.110 - Atherosclerotic heart disease of [place] coronary artery with unstable angina pectoris (4) Post pericardiotomy syndrome: We will do an EKG to evaluate for any pericarditis?. Patient has no fever. The white cell count is normal. Status: Acute Additional A&P Information Anemia, postsurgical, no evidence of any active bleed. History of essential benign hypertension, currently normotensive. History of smoking abuse. Attestations Medical Necessity Statement*: Patient requires continued hospital stay for close monitoring and further management Coding Level of Care Code Acute Peoplesoft Hcm Developer for Chg Fwd Diagnoses S/P CABG (coronary artery bypass graft) Z95.1 Non-ST elevation ID (NSTEMI) I21.4 Atherosclerotic heart disease of [place] coronary artery with unstable angina pectoris I25.110 [place] vs. transplanted heart: [place] heart Post pericardiotomy syndrome I97.0
[2019-06-02] MEDS: sodium chloride 0.9% 1,000 ML 75 ML IV (12:05)
--- NOTE | 2019-06-02 12:12 | PM.PN ---
Subjective Subjective: Interval history: Postop day 2 from CABG. Improved this morning. He is awake alert and able to have a conversation. He does appear to be somewhat fluid overloaded and had received Lasix this morning. Complains of some discomfort at surgical site but otherwise no acute distress. Cordis removed today Medications: Reviewed: Yes Vitals/I&O/Wt Last Vital Signs Temp 98.0 F 06/02/19 04:00 Pulse 77 06/02/19 10:00 Resp 18 06/02/19 10:00 BP 116/81 06/02/19 10:00 Pulse Ox 99 06/02/19 10:00 06/01/19 06/02/19 06/02/19 22:59 06:59 14:59 Intake Total 1929.405 / 1929.405 772 / 2701.405 1300 / 1300 Output Total 744 / 1069 597 / 1666 Balance 1185.405 / 860.405 175 / 8440.750 3582 / 1300 Weight last 48 hrs Weight 100.834 kg Weight 99.11 kg Physical Exam Narrative: EXAM NARRATIVE: GEN: Awake, alert and oriented, no acute distress CHEST: wound vac in place, no gross surrounding cellulitic changes CVS: S1S2 N RS: CTA B/L, few crackles at lung bases Abd: Soft, nt/nd , bs+ SUPERVISOR CELL OPERATION: no focal neuro deficits ext: 1+ edema around ankles Urinary Catheter Management^: العراقي: Cath Placed During This Visit: yes Reason for Continuing Indwelling Catheter: Accurate Measurement of Urinary Output in Critically Ill Patients Urinary Catheter Date of Insertion: 05/31/19 Urinary Catheter Time of Insertion: 07:00 Data : 06/02/19 04:44 06/02/19 04:44 A&P Assessment and plan (1) Non-ST elevation [place] (NSTEMI): Status: Acute (2) Nicotine dependence, cigarettes, uncomplicated: Half a pack a day, has expressed interest in quitting given the acute event related to his heart Status: Chronic (3) S/P CABG (coronary artery bypass graft): Status: Acute (4) Hypertension: Status: Acute (5) Anemia: Status: Acute Additional A&P Information #NSTEMI #s/p CABG on 05/30 Presented from 05/27 with complaints of chest pain. Underwent cardiac catheterization on 05/28 which showed triple-vessel disease with totally occluded RCA. Echocardiogram LVEF of 60%, slight hypokinesis of inferior wall, normal diastolic function. s/p CABG 05/30, currently POD 2 Tolerated surgery well. Slowly improving postoperatively. post op wound and drain care per CTS Currently on aspirin 325 and atorvastatin. liliana op prophylaxis with cefuroxime, wound and drain care per surgical team # h/o hypertension: Currently blood pressure is well controlled #Nicotine dependence: Offer nicotine patch #Postop anemia: Hemoglobin currently 8.7. Start iron and multivitamin supplementation #anxiety : xanax 0.25mg BID prn Full code DVT ppx: SCDs Attestations Medical Necessity Statement*: POD 2 from CABG, recovering Coding Level of Care Code Acute Recreation Engineer for Chg Fwd Diagnoses Non-ST elevation [place] (NSTEMI) I21.4 Nicotine dependence, cigarettes, uncomplicated F17.210 S/P CABG (coronary artery bypass graft) Z95.1 Hypertension I10 Anemia D64.9
--- NOTE | 2019-06-02 13:08 | PC.PT ---
PT attempted second session this date but patient was too fatigued from previous PT and OT sessions. Will continue treatment tomorrow.
[2019-06-02 16:16] LABS: Glucose Point of Care 110 mg/dL (70-110)
[2019-06-02 16:55] LABS: Glucose Point of Care 98 mg/dL (70-110)
[2019-06-02] MEDS: iron polysaccharide complex 150 mg Capsule PO (16:56)
[2019-06-02] MEDS: folic acid 1 mg Tablet PO (16:56)
--- NOTE | 2019-06-02 18:26 | ECG_ITS ---
Measurements Intervals [place] Rate: 89 P: 52 OK: 157 QRS: -18 QRSD: 89 T: 14 QT: 330 QTc: 403 SINUS RHYTHM INFERIOR MYOCARDIAL INFARCTION [40+ ms Q WAVE AND/OR ST/T ABNORMALITY IN II/aVF], PROBABLY OLD WITH POSTERIOR EXTENSION [PROMIN Compared to ECG 06/01/2019 10:38:[address] changes, possibly related to pericarditis No significant changes Electronically Signed On 06-02-2019 20:29:20 CDT by Elizabeth Garcia M.D. [email or web address]
[2019-06-02 20:41] LABS: Glucose Point of Care 98 mg/dL (70-110)
[2019-06-02] MEDS: atorvastatin 40 mg Tablet 20 MG PO (20:45)
[2019-06-02] MEDS: ALPRAZolam 0.25 mg Tablet PO (20:48)
[2019-06-03] VITALS (31 sets, daily range): BP systolic 104–148; BP diastolic 62–99; PULSE 79–96; RESP 10–28; TEMP 36.8–37.3; O2SAT 90–99
[2019-06-03] MEDS: oxyCODONE-APAP 5-325 mg Tablet PO ×4 (02:58→22:37)
[2019-06-03 04:09] LABS: Basophils % 0.4 %; Eosinophils # 0.3 10^3/uL (0.0-0.8); Eosinophils % 3.2 %; Hematocrit 26.2 % (42.0-52.0); Hemoglobin 8.1 g/dL (11.7-16.6); Lymphocytes # 1.2 10^3/uL (0.8-4.8); Lymphocytes % 13.7 %; Mean Corpuscular HGB Conc 30.9 g/dL (30.0-36.0); Mean Corpuscular Hemoglobin 30.3 pg (28.0-34.0); Mean Corpuscular Volume 98.1 fL (80-94); Mean Platelet Volume 10.2 fL (7.4-10.4); Monocytes # 1.2 10^3/uL (0.2-0.9); Monocytes % 13.9 %; Neutrophils # 5.8 10^3/uL (1.8-7.7); Neutrophils % 68.2 %; Nucleated Red Blood Cells % 0 %; Platelet Count 163 10^3/cmm (130-400); Red Blood Count 2.67 10^6/uL (4.1-5.3); Red Cell Distribution Width 13.7 % (12.1-15.1); White Blood Count 8.5 10^3/uL (4.0-10.0)
[2019-06-03 04:29] LABS: Anion Gap 12.9 (5-19); Blood Urea Nitrogen 12 mg/dL (6-20); Calcium 8.2 mg/dL (8.5-10.5); Carbon Dioxide 26 mmol/L (22-29); Chloride 101 mmol/L (98-107); Creatinine Clr Calc Pharmacy 149.4162; Glomerular Filtration Rate 119.9 mL/min (90-130); Glucose 137 mg/dL (65-115); Osmolality Calculated 280 mOsm/kg (285-295); Potassium 3.9 mmol/L (3.5-5.1); Sodium 136 mmol/L (136-145)
--- NOTE | 2019-06-03 06:00 | XR_ITS ---
WS: [id number] PORTABLE CHEST HISTORY: s/p cabg ...diuresing COMPARISON: 06/02/2019 Status post CABG. Central venous catheter with tip in distal SVC. Single left-sided chest tube with t ip directed superiorly. No pneumothorax. Several mediastinal drains are evident centrally. Lung volumes continue to be decreased. Areas of atelectasis in the mid and lower RIGHT lung. No pneum onia. No pleural effusion or pneumothorax. Cardiac size: Normal. Mediastinum/Aorta: Mild atherosclerosis aorta. No osseous abnormality seen. XR/XR chest 1V portable [id number] IMPRESSION: 1. Postoperative changes of CABG. 2. Left-sided chest tube maintenance unchanged with no pneumothorax. 3. Linear areas of atelectasis at the mid and lower LEFT lung.
--- NOTE | 2019-06-03 06:09 | P.PN_ITS ---
Subjective Subjective: Interval history: Postop day #3 status post CABG x3. Up in chair this morning on rounds. Looks quite good. Very oriented. Appropriate to questions. Chest tube output 215 cc past 24 hours. Intake and output is -1500 cc. His hemoglobin is continued to drift downward a bit now at 8.1 though he is asymptomatic. Given his age, I would continue to hold on transfusion at this time and will repeat lab tomorrow. Chest x-ray remains clear. Vitals/I&O/Wt Last Vital Signs Temp 98.6 F 06/02/19 22:08 Pulse 79 06/03/19 05:19 Resp 15 06/03/19 05:19 BP 133/85 06/03/19 05:19 Pulse Ox 98 06/03/19 05:19 06/02/19 06/02/19 06/03/19 14:59 22:59 06:59 Intake Total 1550 / 1550 300 / 1850 300 / 2150 Output Total 1000 / 1000 1150 / 2150 1615 / 3765 Balance 550 / 550 -850 / -300 -1315 / -1615 Weight last 48 hrs Weight 222 lb 4.8 oz Physical Exam Chest: COMMONS NORMALS: inspection of chest normal (Wound VAC dressing in place. Chest wall stable.) and palpation of chest normal Resp: COMMON NORMALS: normal respiratory effort, no retractions, no use of accessory muscles and clear to auscultation bilaterally (Mild decrease in the bases.) EFFORT & INSPECTION: Yes able to speak in complete sentences AUSCULTATION: clear to auscultation bilaterally (Mild decrease in the bases.) Cardio: COMMON NORMALS: regular rate, regular rhythm, S1 normal heart sound and no gallops RATE: regular rate RHYTHM: regular rhythm HEART SOUNDS: S1 normal Extremity: OTHER: Still a bit of edema in the arms and legs though slowly improving. Urinary Catheter Management^: العراقي: Cath Placed During This Visit: yes Reason for Continuing Indwelling Catheter: Accurate Measurement of Urinary Output in Critically Ill Patients Urinary Catheter Date of Insertion: 05/31/19 Urinary Catheter Time of Insertion: 07:00 Data : 06/03/19 03:48 06/03/19 03:48 A&P Assessment and plan (1) S/P CABG (coronary artery bypass graft): Postop day #3 status post CABG. He has advanced quite substantial in the past 24 hours. I will observe chest tube output today after a couple of rounds of ambulation to determine whether tubes can be removed today whether we need to wait until tomorrow. Will determine this afternoon whether he can be transferred to the [facility]. I would repeat his lab tomorrow given that his hemoglobin has continued to drift down. Status: Acute Attestations Medical Necessity Statement*: Postop day #3 status post CABG Time Spent in Patient Care: 16 - 35 minutes Coding Level of Care Code Acute Product Marketing Manager for [employer] Fwd Exam Expanded Problem Focused Diagnoses S/P CABG (coronary artery bypass graft) Z95.1
[2019-06-03 07:22] LABS: Glucose Point of Care 110 mg/dL (70-110)
--- NOTE | 2019-06-03 07:34 | PM.PN ---
Subjective Subjective: Interval history: Events of the weekend noted. Patient is sitting up in the chair this morning alert oriented and conversant. Chest tubes are still in. Off all drips. Hemoglobin is 8.1. He has no complaints. Medications: Reviewed: Yes Vitals/I&O/Wt Last Vital Signs Temp 98.6 F 06/02/19 22:08 Pulse 81 06/03/19 06:08 Resp 16 06/03/19 06:08 BP 129/94 06/03/19 06:08 Pulse Ox 98 06/03/19 06:08 06/02/19 06/03/19 06/03/19 22:59 06:59 14:59 Intake Total 300 / 1850 300 / 2150 Output Total 1150 / 2150 1615 / 3765 Balance -850 / -300 -1315 / -1615 Weight last 48 hrs Weight 222 lb 4.8 oz Physical Exam Narrative: EXAM NARRATIVE: GENERAL: In general he is awake alert and in no distress HEENT: Exam within normal limits. NECK: Supple without jugular vein distention. The carotid upstroke is normal without bruits. BACK: Exam normal. LUNGS: Clear. HEART: Regular rate and rhythm. ABDOMEN: Benign without organomegaly or tenderness. EXTREMITIES: No edema. NEUROLOGIC: Exam normal. SKIN: Unremarkable. Urinary Catheter Management^: العراقي: Cath Placed During This Visit: yes Reason for Continuing Indwelling Catheter: Accurate Measurement of Urinary Output in Critically Ill Patients Urinary Catheter Date of Insertion: 05/31/19 Urinary Catheter Time of Insertion: 07:00 Data : 06/03/19 03:48 06/03/19 03:48 A&P Assessment and plan (1) Non-ST elevation [place] (NSTEMI): Status: Acute (2) Nicotine dependence, cigarettes, uncomplicated: Status: Chronic (3) Borderline hypertension: Status: Acute (4) CAD (coronary artery disease): Status: Acute (5) S/P CABG (coronary artery bypass graft): Status: Acute (6) Anemia: Status: Acute Additional A&P Information Patient seems to be doing well. After ambulation Dr. Mendoza will determine if the chest tubes can be removed. Once they are removed she can go upstairs. I would agree with holding off on transfusion at this time. Will follow. Attestations Medical Necessity Statement*: Not applicable Coding Level of Care Code Established Pt Acute Line Construction Superintendent for Chg Fwd Patient Type Established History Expanded Problem Focused Exam Expanded Problem Focused Medical Decision Making Moderate Complexity Diagnoses Non-ST elevation [place] (NSTEMI) I21.4 Nicotine dependence, cigarettes, uncomplicated F17.210 Borderline hypertension R03.0 CAD (coronary artery disease) I25.10 S/P CABG (coronary artery bypass graft) Z95.1 Anemia D64.9
[2019-06-03] MEDS: iron polysaccharide complex 150 mg Capsule PO ×2 (07:36→18:54)
[2019-06-03 10:23] LABS: ABG PCO2 27.3 mmHg (35-45); ABG PH Result 7.35 (7.35-7.45); Arterial Blood Gas Hematocrit 33.3 % (42-52); Base Excess ABG -9.3 mmol/L (-2.0-2.0); Blood Gas Sample Type Arterial; Blood Gas Tidal Volume 0.55; Oxygen Device VENT
[2019-06-03 10:31] LABS: Blood Gas CCRB Time 2230
[2019-06-03 11:48] LABS: Glucose Point of Care 97 mg/dL (70-110)
--- NOTE | 2019-06-03 11:50 | PM.PN ---
Subjective Subjective: Interval history: No new complaints, feels well, pain currently well controlled. Postop day #3 status post CABG x3. Plan for chest tube removal latre today likely. HB 8.1, no symptoms of dizziness, shortness of breath, chest pain, hemodynamically stable. Medications: Reviewed: Yes Vitals/I&O/Wt Last Vital Signs Temp 98.4 F 06/03/19 08:56 Pulse 88 06/03/19 10:11 Resp 11 L 06/03/19 10:11 BP 104/70 06/03/19 10:11 Pulse Ox 98 06/03/19 10:11 06/02/19 06/03/19 06/03/19 22:59 06:59 14:59 Intake Total 300 / 1850 300 / 2150 240 / 240 Output Total 1150 / 2150 1615 / 3765 Balance -850 / -300 -1315 / -1615 240 / 240 Weight last 48 hrs Weight 102.648 kg Weight 100.834 kg Physical Exam Narrative: EXAM NARRATIVE: GEN: Awake, alert and oriented, no acute distress CHEST: wound vac in place, no gross surrounding cellulitic changes CVS: S1S2 N RS: CTA B/L, few crackles at lung bases Abd: Soft, nt/nd , bs+ 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: no focal neuro deficits Urinary Catheter Management^: العراقي: Cath Placed During This Visit: yes Reason for Continuing Indwelling Catheter: Accurate Measurement of Urinary Output in Critically Ill Patients Urinary Catheter Date of Insertion: 05/31/19 Urinary Catheter Time of Insertion: 07:00 Data : 06/03/19 03:48 06/03/19 03:48 A&P Assessment and plan (1) Non-ST elevation [place] (NSTEMI): Status: Acute (2) Nicotine dependence, cigarettes, uncomplicated: Half a pack a day, has expressed interest in quitting given the acute event related to his heart Status: Chronic (3) S/P CABG (coronary artery bypass graft): Status: Acute (4) Hypertension: Status: Acute (5) Anemia: Status: Acute Additional A&P Information #NSTEMI #s/p CABG on 05/30 Presented from 05/27 with complaints of chest pain. Underwent cardiac catheterization on 05/28 which showed triple-vessel disease with totally occluded RCA. Echocardiogram LVEF of 60%, slight hypokinesis of inferior wall, normal diastolic function. s/p CABG 05/30, currently POD 2 Tolerated surgery well. Slowly improving postoperatively. post op wound and drain care per CTS, possible drain removal today Currently on aspirin 325 and atorvastatin. liliana op prophylaxis with cefuroxime, wound and drain care per surgical team # h/o hypertension: Currently blood pressure is well controlled #Nicotine dependence: Offer nicotine patch #Postop anemia: Hemoglobin currently 8.1. Start iron and multivitamin supplementation. Holding off on transfusion for now #anxiety : xanax 0.25mg BID prn Full code DVT ppx: SCDs Attestations Medical Necessity Statement*: POD # from CABG Coding Level of Care Code Acute Voucher Clerk for g Fwd Diagnoses Non-ST elevation [place] (NSTEMI) I21.4 Nicotine dependence, cigarettes, uncomplicated F17.210 S/P CABG (coronary artery bypass graft) Z95.1 Hypertension I10 Anemia D64.9
[2019-06-03] MEDS: multivitamin therapeutic Tablet 1 TAB PO (12:03)
[2019-06-03] MEDS: aspirin 325 mg Tablet PO (12:03)
[2019-06-03] MEDS: chlorhexidine gluconate 0.12% Btl 473 mL 15 ML MUCOUS MEM (12:04)
[2019-06-03] MEDS: folic acid 1 mg Tablet PO ×2 (12:04→18:54)
[2019-06-03] MEDS: FUROsemide 10 mg/mL SDV 4mL 20 MG IVP (15:07)
[2019-06-03 17:43] LABS: Glucose Point of Care 93 mg/dL (70-110)
[2019-06-03] MEDS: morphine 4 mg/mL SDV 1 mL 2 MG IVP (17:48)
[2019-06-03] MEDS: atorvastatin 40 mg Tablet 20 MG PO (20:59)
--- NOTE | 2019-06-03 22:30 | PC.NURSE ---
Removed العراقي catheter per order. Catheter tip in place. Patient tolerated well. Emptied 2000 mL of pale yellow urine.
[2019-06-03] MEDS: ALPRAZolam 0.25 mg Tablet PO (23:42)
[2019-06-04] VITALS (23 sets, daily range): BP systolic 103–153; BP diastolic 66–97; PULSE 76–104; RESP 12–23; TEMP 36.6–37.3; O2SAT 87–100
[2019-06-04] MEDS: oxyCODONE-APAP 5-325 mg Tablet PO ×2 (04:01→12:15)
[2019-06-04] MEDS: bisacodyl 5 mg Tablet 10 MG PO (04:02)
[2019-06-04 04:38] LABS: Basophils % 0.3 %; Eosinophils # 0.3 10^3/uL (0.0-0.8); Eosinophils % 4.5 %; Hemoglobin 8.5 g/dL (11.7-16.6); Lymphocytes # 1.1 10^3/uL (0.8-4.8); Lymphocytes % 15.9 %; Mean Corpuscular HGB Conc 31.5 g/dL (30.0-36.0); Mean Corpuscular Hemoglobin 30.9 pg (28.0-34.0); Mean Corpuscular Volume 98.2 fL (80-94); Mean Platelet Volume 10.1 fL (7.4-10.4); Neutrophils # 4.7 10^3/uL (1.8-7.7); Nucleated Red Blood Cells % 0 %; Platelet Count 247 10^3/cmm (130-400); Red Blood Count 2.75 10^6/uL (4.1-5.3); Red Cell Distribution Width 13.6 % (12.1-15.1); White Blood Count 7.2 10^3/uL (4.0-10.0)
[2019-06-04] MEDS: ondansetron 2 mg/ML SDV 2 mL 4 MG IVP (05:50)
--- NOTE | 2019-06-04 06:54 | P.PN_ITS ---
Subjective Subjective: Interval history: Postop day #4 status post CABG x3. Up in chair this morning having breakfast. Looks very good. Vitals/I&O/Wt Last Vital Signs Temp 98.2 F 06/03/19 22:00 Pulse 84 06/04/19 06:00 Resp 18 06/04/19 06:00 BP 124/93 06/04/19 06:00 Pulse Ox 97 06/04/19 06:00 06/03/19 06/03/19 06/04/19 14:59 22:59 06:59 Intake Total 480 / 480 Output Total 100 / 100 4000 / 4100 775 / 4875 Balance 380 / 380 -4000 / -3620 -775 / -4395 Weight last 48 hrs Weight 225 lb 4 oz Weight 226 lb 4.8 oz Physical Exam Chest: OTHER: Wound VAC dressing remains in place. Mediastinal and pleural drains were discontinued yesterday. Resp: COMMON NORMALS: normal respiratory effort and clear to auscultation bilaterally AUSCULTATION: clear to auscultation bilaterally Extremity: OTHER: Peripheral edema improving Urinary Catheter Management^: العراقي: Cath Placed During This Visit: yes Reason for Continuing Indwelling Catheter: Accurate Measurement of Urinary Output in Critically Ill Patients Urinary Catheter Date of Insertion: 05/31/19 Urinary Catheter Time of Insertion: 07:00 Data : 06/04/19 04:10 06/03/19 03:48 A&P Assessment and plan (1) S/P CABG (coronary artery bypass graft): Postop day #4 status post CABG x3. Will transfer to [facility]. Also will add metoprolol 12.5 mg twice daily. Will plan to remove wound VAC dressing in the morning. Discharge planning. Status: Acute Attestations Medical Necessity Statement*: Status post CABG Time Spent in Patient Care: less than 15 minutes Coding Level of Care Code Acute Geosciences Associate Professor for g Fwd Diagnoses S/P CABG (coronary artery bypass graft) Z95.1
[2019-06-04] MEDS: metoprolol tartrate 25 mg Tablet 12.5 MG PO (07:24)
[2019-06-04] MEDS: iron polysaccharide complex 150 mg Capsule PO ×2 (07:24→16:56)
--- NOTE | 2019-06-04 08:32 | P.PN_ITS ---
Subjective Subjective: Interval history: Elliott is doing well. All tubes are out. No complaints. Ready to go upstairs. Medications: Reviewed: Yes Vitals/I&O/Wt Last Vital Signs Temp 98.2 F 06/03/19 22:00 Pulse 87 06/04/19 07:00 Resp 22 H 06/04/19 07:00 BP 124/93 06/04/19 07:00 Pulse Ox 95 06/04/19 07:00 06/03/19 06/04/19 06/04/19 22:59 06:59 14:59 Output Total 4000 / 4100 775 / 4875 Balance -4000 / -3620 -775 / -4395 Weight last 48 hrs Weight 225 lb 4 oz Weight 226 lb 4.8 oz Physical Exam Narrative: EXAM NARRATIVE: GENERAL: In general he looks and feels well HEENT: Exam within normal limits. NECK: Supple without jugular vein distention. The carotid upstroke is normal without bruits. BACK: Exam normal. LUNGS: Clear. HEART: Regular rate and rhythm. ABDOMEN: Benign without organomegaly or tenderness. EXTREMITIES: No edema. NEUROLOGIC: Exam normal. SKIN: Unremarkable. Urinary Catheter Management^: العراقي: Cath Placed During This Visit: yes Reason for Continuing Indwelling Catheter: Accurate Measurement of Urinary Output in Critically Ill Patients Urinary Catheter Date of Insertion: 05/31/19 Urinary Catheter Time of Insertion: 07:00 Data : 06/04/19 04:10 06/03/19 03:48 A&P Assessment and plan (1) Anemia: Status: Acute (2) Hypertension: Status: Acute (3) Atherosclerotic heart disease of [place] coronary artery with unstable angina pectoris: Status: Acute Qualifiers: [place] vs. transplanted heart: [place] heart Qualified Code(s): I25.110 - Atherosclerotic heart disease of [place] coronary artery with unstable angina pectoris (4) S/P CABG (coronary artery bypass graft): Status: Acute (5) Borderline hypertension: Status: Acute (6) Nicotine dependence, cigarettes, uncomplicated: Status: Chronic (7) Non-ST elevation [place] (NSTEMI): Status: Acute Additional A&P Information He is doing well. Medicines appropriate. Ready to go to the second floor. Attestations Medical Necessity Statement*: Not applicable Coding Level of Care Code Established Pt Acute Ems Educator for Chg Fwd Patient Type Established History Expanded Problem Focused Exam Expanded Problem Focused Medical Decision Making Low Complexity Diagnoses Anemia D64.9 Hypertension I10 Atherosclerotic heart disease of [place] coronary artery with unstable angina pectoris I25.110 [place] vs. transplanted heart: [place] heart S/P CABG (coronary artery bypass graft) Z95.1 Borderline hypertension R03.0 Nicotine dependence, cigarettes, uncomplicated F17.210 Non-ST elevation [place] (NSTEMI) I21.4
[2019-06-04] MEDS: enoxaparin 40 mg/0.4 mL Syringe SUBCUT (08:56)
[2019-06-04] MEDS: lactulose oral liq 20 gm/30 mL UDC 10 GM PO (08:56)
[2019-06-04] MEDS: docusate sodium 100 mg Capsule PO (08:57)
[2019-06-04] MEDS: aspirin 325 mg Tablet PO (08:57)
[2019-06-04] MEDS: multivitamin therapeutic Tablet 1 TAB PO (08:57)
[2019-06-04] MEDS: folic acid 1 mg Tablet PO ×2 (08:57→16:56)
[2019-06-04 09:29] LABS: ABG PCO2 49.2 mmHg (35-45); ABG PH Result 7.26 (7.35-7.45)
[2019-06-04 09:30] LABS: Base Excess ABG -5.4 mmol/L (-2.0-2.0); Oxygen Saturation ABG 99.8; Potassium Level - ABG 4.3 mmol/L (3.5-5.0)
[2019-06-04 09:32] LABS: ABG PCO2 49.1 mmHg (35-45); ABG PH Result 7.29 (7.35-7.45)
[2019-06-04 09:33] LABS: Base Excess ABG -3.2 mmol/L (-2.0-2.0); HCO3 ABG 23.6 mmol/L (22-26)
[2019-06-04 09:34] LABS: ABG PCO2 43.5 mmHg (35-45); ABG PH Result 7.29 (7.35-7.45); HCO3 ABG 20.8 mmol/L (22-26)
[2019-06-04 09:35] LABS: Base Excess ABG -5.6 mmol/L (-2.0-2.0); Potassium Level - ABG 5.2 mmol/L (3.5-5.0)
[2019-06-04 09:35] LABS: ABG PCO2 43.3 mmHg (35-45); ABG PH Result 7.32 (7.35-7.45)
[2019-06-04 09:36] LABS: Base Excess ABG -3.8 mmol/L (-2.0-2.0); HCO3 ABG 22.2 mmol/L (22-26); Potassium Level - ABG 4.6 mmol/L (3.5-5.0)
[2019-06-04 09:37] LABS: Arterial Blood Gas Hematocrit 30.4 % (42-52); Blood Gas CCRB Time 1211; Blood Gas Sample Site ART LINE; Blood Gas Sample Type ARTERIAL
[2019-06-04 09:38] LABS: Ionized Calcium Level - ABG 0.9 mmol/L (1.1-1.4)
[2019-06-04 09:39] LABS: HGB O2 Sat 98.7 % (95-100); Total Hemoglobin 9.9 g/dL (14-18)
[2019-06-04 09:40] LABS: Carboxyhemoglobin 0.8 %THgb (0.4-20.1); Methemoglobin 0.7 % (0.4-1.5)
[2019-06-04 09:41] LABS: ABG PCO2 43.1 mmHg (35-45); ABG PH Result 7.37 (7.35-7.45); HCO3 ABG 24.6 mmol/L (22-26)
[2019-06-04 09:42] LABS: Base Excess ABG -0.8 mmol/L (-2.0-2.0); Potassium Level - ABG 4.1 mmol/L (3.5-5.0)
--- NOTE | 2019-06-04 09:42 | ECG_ITS ---
Measurements Intervals [place] Rate: 80 P: 48 [place]: 158 QRS: -17 QRSD: 95 T: 36 QT: 354 QTc: 408 SINUS RHYTHM INTERPRETATION BASED ON A DEFAULT AGE OF 40 YEARS Compared to ECG 06/02/2019 18:40:58 Myocardial infarct finding no longer present Electronically Signed On 06-04-2019 18:10:06 CDT by Viri Barclay M.D. [email or web address]
[2019-06-04 09:43] LABS: Arterial Blood Gas Hematocrit 26.8 % (42-52); Blood Gas CCRB Time 1244; Blood Gas Sample Site ART LINE; Blood Gas Sample Type ARTERIAL; Carboxyhemoglobin 0.9 %THgb (0.4-20.1); Methemoglobin 0.5 % (0.4-1.5); Total Hemoglobin 8.7 g/dL (14-18)
[2019-06-04 09:44] LABS: ABG PCO2 46.3 mmHg (35-45); ABG PH Result 7.36 (7.35-7.45); Base Excess ABG 0.2 mmol/L (-2.0-2.0); HCO3 ABG 25.9 mmol/L (22-26)
[2019-06-04 09:45] LABS: Arterial Blood Gas Hematocrit 26.2 % (42-52); Blood Gas CCRB Time 1309; Blood Gas Sample Site ART LINE; Blood Gas Sample Type ARTERIAL; Potassium Level - ABG 4.1 mmol/L (3.5-5.0)
[2019-06-04 09:46] LABS: Carboxyhemoglobin 0.7 %THgb (0.4-20.1); HGB O2 Sat 98.6 % (95-100); Ionized Calcium Level - ABG 1.2 mmol/L (1.1-1.4); Methemoglobin 0.9 % (0.4-1.5); Total Hemoglobin 8.5 g/dL (14-18)
[2019-06-04 09:46] LABS: ABG PCO2 50.5 mmHg (35-45); ABG PH Result 7.26 (7.35-7.45)
[2019-06-04] MEDS: morphine 4 mg/mL SDV 1 mL 2 MG IVP (09:46)
[2019-06-04 09:47] LABS: Arterial Blood Gas Hematocrit 27.8 % (42-52); Base Excess ABG -4.2 mmol/L (-2.0-2.0); Blood Gas Sample Site ART LINE; Blood Gas Sample Type ARTERIAL; HCO3 ABG 22.8 mmol/L (22-26); Oxygen Saturation ABG 99.4; Potassium Level - ABG 3.6 mmol/L (3.5-5.0)
[2019-06-04 09:48] LABS: Blood Gas CCRB Time 1351; Carboxyhemoglobin 0.8 %THgb (0.4-20.1); HGB O2 Sat 97.7 % (95-100); Ionized Calcium Level - ABG 1.1 mmol/L (1.1-1.4); Methemoglobin 0.8 % (0.4-1.5); Total Hemoglobin 9.1 g/dL (14-18)
[2019-06-04 09:49] LABS: ABG PCO2 55.2 mmHg (35-45); ABG PH Result 7.23 (7.35-7.45); HCO3 ABG 23.3 mmol/L (22-26)
[2019-06-04 09:50] LABS: Base Excess ABG -4.6 mmol/L (-2.0-2.0); Blood Gas Sample Site ART LINE; Blood Gas Sample Type ARTERIAL; Oxygen Saturation ABG 99.8; Potassium Level - ABG 3.8 mmol/L (3.5-5.0)
[2019-06-04 09:51] LABS: Arterial Blood Gas Hematocrit 36.4 % (42-52); Blood Gas CCRB Time 1426; Carboxyhemoglobin 0.7 %THgb (0.4-20.1); HGB O2 Sat 98.3 % (95-100); Methemoglobin 0.8 % (0.4-1.5); Total Hemoglobin 11.9 g/dL (14-18)
--- NOTE | 2019-06-04 09:51 | PC.NURSE ---
Pt complain of severe chest pressure. Anxious and unable to determine if it is cardiac or surgical. Stat [address] changes. Morphine IV given for complaint of
[2019-06-04 09:53] LABS: Blood Gas Sample Site ART LINE; Blood Gas Sample Type ARTERIAL
[2019-06-04 09:54] LABS: Arterial Blood Gas Hematocrit 42.4 % (42-52); Blood Gas CCRB Time 1044; Carboxyhemoglobin 0.5 %THgb (0.4-20.1); HGB O2 Sat 98.6 % (95-100); Ionized Calcium Level - ABG 1.1 mmol/L (1.1-1.4); Methemoglobin 0.6 % (0.4-1.5); Total Hemoglobin 13.8 g/dL (14-18)
[2019-06-04 09:55] LABS: Arterial Blood Gas Hematocrit 32.5 % (42-52); Blood Gas CCRB Time 1112; Blood Gas Sample Site ART LINE; Blood Gas Sample Type ARTERIAL
[2019-06-04 09:56] LABS: Carboxyhemoglobin 0.6 %THgb (0.4-20.1); HGB O2 Sat 99.1 % (95-100); Methemoglobin 0.6 % (0.4-1.5); Total Hemoglobin 10.6 g/dL (14-18)
[2019-06-04 09:57] LABS: Arterial Blood Gas Hematocrit 30.6 % (42-52); Blood Gas CCRB Time 1142; Blood Gas Sample Site ART LINE; Blood Gas Sample Type ARTERIAL; Carboxyhemoglobin 0.6 %THgb (0.4-20.1); HGB O2 Sat 98.7 % (95-100); Ionized Calcium Level - ABG 0.9 mmol/L (1.1-1.4); Methemoglobin 0.8 % (0.4-1.5)
--- NOTE | 2019-06-04 10:48 | P.PN_ITS ---
Subjective Subjective: Interval history: No new complaints, in good spirits, feels well. Chest tubes have been removed. Medications: Reviewed: Yes Vitals/I&O/Wt Last Vital Signs Temp 98.2 F 06/04/19 08:00 Pulse 81 06/04/19 10:00 Resp 21 H 06/04/19 10:00 BP 103/66 06/04/19 10:00 Pulse Ox 92 06/04/19 10:00 06/03/19 06/04/19 06/04/19 22:59 06:59 14:59 Intake Total 270 / 270 Output Total 4000 / 4100 775 / 4875 1480 / 1480 Balance -4000 / -3620 -775 / -4395 -1210 / -1210 Weight last 48 hrs Weight 102.172 kg Weight 102.648 kg Physical Exam Narrative: EXAM NARRATIVE: GEN: Awake, alert and oriented, no acute distress CHEST: wound vac in place, no gross surrounding cellulitic changes CVS: S1S2 N RS: CTA B/L Abd: Soft, nt/nd , bs+ TECHNICAL APPLICATIONS SCIENTIST: no focal neuro deficits Urinary Catheter Management^: العراقي: Cath Placed During This Visit: yes Reason for Continuing Indwelling Catheter: Accurate Measurement of Urinary Output in Critically Ill Patients Urinary Catheter Date of Insertion: 05/31/19 Urinary Catheter Time of Insertion: 07:00 Data : 06/04/19 04:10 06/03/19 03:48 A&P Assessment and plan (1) Non-ST elevation [place] (NSTEMI): Status: Acute (2) Nicotine dependence, cigarettes, uncomplicated: Half a pack a day, has expressed interest in quitting given the acute even t related to his heart Status: Chronic (3) S/P CABG (coronary artery bypass graft): Status: Acute (4) Hypertension: Status: Acute (5) Anemia: Status: Acute Additional A&P Information #NSTEMI #s/p CABG on 05/30 Presented from 05/27 with complaints of chest pain. Underwent cardiac catheterization on 05/28 which showed triple-vessel disease with totally occluded RCA. Echocardiogram LVEF of 60%, slight hypokinesis of inferior wall, normal diastolic function. s/p CABG 05/30, currently POD 2 Tolerated surgery well. improving postoperatively. post op wound care per CTS Currently on aspirin 325 and atorvastatin. # h/o hypertension: Currently blood pressure is well controlled #Nicotine dependence: Offer nicotine patch #Postop anemia: Hemoglobin currently 8.5. on iron and multivitamin supplementation. #anxiety : xanax 0.25mg BID prn Full code DVT ppx: SCDs Attestations Medical Necessity Statement*: s/p CABG, recovering well Coding Level of Care Code Acute Cotton Classer for Chg Fwd Diagnoses Non-ST elevation [place] (NSTEMI) I21.4 Nicotine dependence, cigarettes, uncomplicated F17.210 S/P CABG (coronary artery bypass graft) Z95.1 Hypertension I10 Anemia D64.9
[2019-06-04] MEDS: ALPRAZolam 0.25 mg Tablet PO (18:47)
[2019-06-04] MEDS: atorvastatin 40 mg Tablet 20 MG PO (19:22)
[2019-06-04] MEDS: oxyCODONE-APAP 5-325 mg Tablet 1 TAB PO (19:22)
[2019-06-05] VITALS (10 sets, daily range): BP systolic 138–171; BP diastolic 87–100; PULSE 88–99; RESP 16–19; TEMP 36.6–37; O2SAT 95–97
[2019-06-05] MEDS: ALPRAZolam 0.25 mg Tablet PO ×3 (00:37→16:13)
[2019-06-05] MEDS: oxyCODONE-APAP 5-325 mg Tablet 1 TAB PO ×4 (00:38→20:09)
--- NOTE | 2019-06-05 06:52 | PM.PN ---
Subjective Subjective: Interval history: Elliott has been transferred to the second floor. He seems to be doing well. He tells me that he gets anxious at night. Otherwise he feels well. No arrhythmias. Medications: Reviewed: Yes Vitals/I&O/Wt Last Vital Signs Temp 98.3 F 06/05/19 04:00 Pulse 88 06/05/19 04:00 Resp 18 06/05/19 06:20 BP 162/97 06/05/19 04:00 Pulse Ox 95 06/05/19 04:00 06/04/19 06/04/19 06/05/19 14:59 22:59 06:59 Intake Total 510 / 510 834 / 1344 460 / 1804 Output Total 1880 / 1880 1300 / 3180 825 / 4005 Balance -1370 / -1370 -466 / -1836 -365 / -2201 Weight last 48 hrs Weight 230 lb 12.8 oz Weight 225 lb 4 oz Physical Exam Narrative: EXAM NARRATIVE: GENERAL: In general he looks and feels well HEENT: Exam within normal limits. NECK: Supple without jugular vein distention. The carotid upstroke is normal without bruits. BACK: Exam normal. LUNGS: Clear. HEART: Regular rate and rhythm. ABDOMEN: Benign without organomegaly or tenderness. EXTREMITIES: No edema. NEUROLOGIC: Exam normal. SKIN: Unremarkable. Urinary Catheter Management^: العراقي: Cath Placed During This Visit: yes Reason for Continuing Indwelling Catheter: Accurate Measurement of Urinary Output in Critically Ill Patients Urinary Catheter Date of Insertion: 05/31/19 Urinary Catheter Time of Insertion: 07:00 Data : 06/04/19 04:10 06/03/19 03:48 A&P Assessment and plan (1) Anemia: Status: Acute (2) Hypertension: Status: Acute (3) Atherosclerotic heart disease of [place] coronary artery with unstable angina pectoris: Status: Acute Qualifiers: [place] vs. transplanted heart: [place] heart Qualified Code(s): I25.110 - Atherosclerotic heart disease of [place] coronary artery with unstable angina pectoris (4) S/P CABG (coronary artery bypass graft): Status: Acute (5) CAD (coronary artery disease): Status: Acute (6) Borderline hypertension: Status: Acute (7) Non-ST elevation [place] (NSTEMI): Status: Acute (8) Nicotine dependence, cigarettes, uncomplicated: Status: Chronic Additional A&P Information He is getting along fine. No changes made. Expect discharge in 1 to 2 days. Attestations Medical Necessity Statement*: Not applicable Coding Level of Care Code Established Pt Acute Hairspring Vibrator for Tucker Siegel Patient Type Established History Detailed Exam Detailed Medical Decision Making Moderate Complexity Diagnoses Anemia D64.9 Hypertension I10 Atherosclerotic heart disease of [place] coronary artery with unstable angina pectoris I25.110 [place] vs. transplanted heart: [place] heart S/P CABG (coronary artery bypass graft) Z95.1 CAD (coronary artery disease) I25.10 Borderline hypertension R03.0 Non-ST elevation [place] (NSTEMI) I21.4 Nicotine dependence, cigarettes, uncomplicated F17.210
--- NOTE | 2019-06-05 07:14 | P.PN_ITS ---
Subjective Subjective: Interval history: Postop day #5 status post CABG. Had a bit of anxiety last night, though otherwise did well. Was transferred to intermediate care yesterday. Wound VAC dressing removed. Incision clean and dry. Drain sites well approximated. Vitals/I&O/Wt Last Vital Signs Temp 98.3 F 06/05/19 04:00 Pulse 88 06/05/19 04:00 Resp 18 06/05/19 06:20 BP 162/97 06/05/19 04:00 Pulse Ox 95 06/05/19 04:00 06/04/19 06/05/19 06/05/19 22:59 06:59 14:59 Intake Total 834 / 1344 460 / 1804 Output Total 1300 / 3180 825 / 4005 Balance -466 / -1836 -365 / -2201 Weight last 48 hrs Weight 230 lb 12.8 oz Weight 225 lb 4 oz Physical Exam Chest: COMMONS NORMALS: inspection of chest normal (Tenotomy incision clean and dry. Sternum stable. Drain sites well approximated.) Resp: COMMON NORMALS: normal respiratory effort and clear to auscultation bilaterally AUSCULTATION: clear to auscultation bilaterally Cardio: COMMON NORMALS: regular rate and regular rhythm PALPATION: normal PMI RATE: regular rate RHYTHM: regular rhythm Urinary Catheter Management^: العراقي: Cath Placed During This Visit: yes Reason for Continuing Indwelling Catheter: Accurate Measurement of Urinary Output in Critically Ill Patients Urinary Catheter Date of Insertion: 05/31/19 Urinary Catheter Time of Insertion: 07:00 Data : 06/04/19 04:10 06/03/19 03:48 A&P Assessment and plan (1) S/P CABG (coronary artery bypass graft): Postop day #5 status post CABG x3. Recovering well. Wound VAC dressing removed. Sternotomy incision clean and dry. Sternum stable. Plan: We will plan to discharge to home tomorrow with home health services. Mr. Mathews plans to be staying with his mother and [facility]. Status: Acute Attestations Medical Necessity Statement*: Status post CABG x3 Time Spent in Patient Care: 16 - 35 minutes Coding Level of Care Code Acute Automobile Mechanic Supervisor for Chg Fwd Diagnoses S/P CABG (coronary artery bypass graft) Z95.1
[2019-06-05] MEDS: enoxaparin 40 mg/0.4 mL Syringe SUBCUT (08:03)
[2019-06-05] MEDS: aspirin 325 mg Tablet PO (08:03)
[2019-06-05] MEDS: folic acid 1 mg Tablet PO ×2 (08:04→16:13)
[2019-06-05] MEDS: multivitamin therapeutic Tablet 1 TAB PO (08:04)
[2019-06-05] MEDS: iron polysaccharide complex 150 mg Capsule PO ×2 (08:04→16:13)
[2019-06-05] MEDS: metoprolol tartrate 25 mg Tablet 12.5 MG PO ×2 (10:03→19:13)
--- NOTE | 2019-06-05 12:26 | P.PN_ITS ---
Subjective Subjective: Interval history: Elliott reports he is doing well. No significant pain. Eager to go home tomorrow. Nurse alerts me that his blood pressure has been steadily increasing in the last several days. Medications: Reviewed: Yes Vitals/I&O/Wt Last Vital Signs Temp 98.3 F 06/05/19 11:51 Pulse 99 06/05/19 11:51 Resp 16 06/05/19 11:51 BP 138/87 06/05/19 11:51 Pulse Ox 97 06/05/19 11:51 06/04/19 06/05/19 06/05/19 22:59 06:59 14:59 Intake Total 834 / 1344 460 / 1804 540 / 540 Output Total 1300 / 3180 825 / 4005 950 / 950 Balance -466 / -1836 -365 / -2201 -410 / -410 Weight last 48 hrs Weight 104.689 kg Weight 102.172 kg Physical Exam Narrative: EXAM NARRATIVE: General exam no apparent distress Cardiovascular regular rate and rhythm without murmur Lungs clear Abdomen is soft with positive bowel sounds Extremities no cyanosis clubbing. Trace edema right leg where venous harvest occurred Urinary Catheter Management^: العراقي: Cath Placed During This Visit: yes Reason for Continuing Indwelling Catheter: Accurate Measurement of Urinary Output in Critically Ill Patients Urinary Catheter Date of Insertion: 05/31/19 Urinary Catheter Time of Insertion: 07:00 Data : 06/04/19 04:10 06/03/19 03:48 A&P Assessment and plan (1) Non-ST elevation [place] (NSTEMI): Status post coronary artery bypass grafting Continue aspirin, statin. Add beta-howard Status: Acute (2) Nicotine dependence, cigarettes, uncomplicated: Encourage abstinence Status: Chronic (3) S/P CABG (coronary artery bypass graft): Coronary artery bypass grafting occurred on May 30. He is done well. Anticipating discharge tomorrow. Status: Acute (4) Hypertension: Blood pressure slowly increasing. Secondary to history of cardiac disease we will add metoprolol 12.5 mg twice daily Status: Acute (5) Anemia: Acute postoperative blood loss anemia. Currently appears stable. Status: Acute Additional A&P Information Coronary artery disease. Status post angiogram leading to coronary artery bypass grafting secondary to three-vessel disease. EF preserved. Echocardiogram demonstrated EF of 60%. Anxiety, stable Full code Lovenox for DVT prophylaxis Attestations Medical Necessity Statement*: Needs continued hospitalization for close monitoring following coronary artery bypass grafting. Coding Level of Care Code Acute Sewage Treatment Plant Operator for Chg Fwd Diagnoses Non-ST elevation [place] (NSTEMI) I21.4 Nicotine dependence, cigarettes, uncomplicated F17.210 S/P CABG (coronary artery bypass graft) Z95.1 Hypertension I10 Anemia D64.9
--- NOTE | 2019-06-05 14:44 | PC.OT ---
PATIENT WISHES TO HOLD OT TODAY HE IS VERY TIRED. AGREEABLE TO Patricia VANCE
--- NOTE | 2019-06-05 17:21 | NUR.SHIFT ---
PATIENT HAS DONE WELL TODAY. ANXIETY APPEARS TO BE BETTER WITH THE XANAX INCREASE. DR. HAHN REMOVED PATIENT'S WOUND VAC THIS AM. SURGICAL DRESSING IS C/D/I. PAIN WELL CONTROLLED. PATIENT STARTED ON 12.5MG OF METOPROLOL BID. BLOOD PRESSURE IS BETTER. PATIENT HAS AMBULATED SEVERAL TIMES TODAY IN THE [facility]. UP IN THE CHAIR. NO COMPLAINTS AT THIS TIME.
[2019-06-05] MEDS: atorvastatin 40 mg Tablet 20 MG PO (19:13)
[2019-06-06] VITALS: BP 140/77; PULSE 93; RESP 20; TEMP 36.7; O2SAT 94
[2019-06-06 04:00] VITALS: BP 110/67; PULSE 94; RESP 20; TEMP 36.7; O2SAT 96
--- NOTE | 2019-06-06 06:49 | P.PN_ITS ---
Subjective Subjective: Interval history: Patient had an uneventful night. No complaints this morning. Anxious to go home. Medications: Reviewed: Yes Vitals/I&O/Wt Last Vital Signs Temp 98.0 F 06/06/19 04:00 Pulse 94 06/06/19 04:00 Resp 20 H 06/06/19 04:00 BP 110/67 06/06/19 04:00 Pulse Ox 96 06/06/19 04:00 06/05/19 06/05/19 06/06/19 14:59 22:59 06:59 Intake Total 540 / 540 460 / 1000 100 / 1100 Output Total 1450 / 1450 500 / 1950 Balance -910 / -910 -40 / -950 100 / -850 Weight last 48 hrs Weight 230 lb 12.8 oz Physical Exam Narrative: EXAM NARRATIVE: GENERAL: In general feels comfortable and looks well HEENT: Exam within normal limits. NECK: Supple without jugular vein distention. The carotid upstroke is normal without bruits. BACK: Exam normal. LUNGS: Clear. HEART: Regular rate and rhythm. ABDOMEN: Benign without organomegaly or tenderness. EXTREMITIES: No edema. NEUROLOGIC: Exam normal. SKIN: Unremarkable. Urinary Catheter Management^: العراقي: Cath Placed During This Visit: yes Reason for Continuing Indwelling Catheter: Accurate Measurement of Urinary Output in Critically Ill Patients Urinary Catheter Date of Insertion: 05/31/19 Urinary Catheter Time of Insertion: 07:00 Data : 06/04/19 04:10 06/03/19 03:48 A&P Assessment and plan (1) Anemia: Status: Acute (2) Hypertension: Status: Acute (3) Atherosclerotic heart disease of [place] coronary artery with unstable angina pectoris: Status: Acute Qualifiers: [place] vs. transplanted heart: [place] heart Qualified Code(s): I25.110 - Atherosclerotic heart disease of [place] coronary artery with unstable angina pectoris (4) S/P CABG (coronary artery bypass graft): Status: Acute (5) Borderline hypertension: Status: Acute (6) Nicotine dependence, cigarettes, uncomplicated: Status: Chronic (7) Non-ST elevation [place] (NSTEMI): Status: Acute Additional A&P Information Okay to discharge. Medications seem appropriate. Follow-up as arranged. Attestations Medical Necessity Statement*: Not applicable Coding Level of Care Code Established Pt Acute Test Specialist for Chg Fwd Patient Type Established History Detailed Exam Detailed Medical Decision Making Moderate Complexity Diagnoses Anemia D64.9 Hypertension I10 Atherosclerotic heart disease of [place] coronary artery with unstable angina pectoris I25.110 [place] vs. transplanted heart: [place] heart S/P CABG (coronary artery bypass graft) Z95.1 Borderline hypertension R03.0 Nicotine dependence, cigarettes, uncomplicated F17.210 Non-ST elevation [place] (NSTEMI) I21.4
[2019-06-06 07:53] VITALS: BP 156/97; PULSE 86; RESP 16; TEMP 36.8; O2SAT 93
[2019-06-06] MEDS: iron polysaccharide complex 150 mg Capsule PO (08:35)
[2019-06-06] MEDS: folic acid 1 mg Tablet PO (08:35)
[2019-06-06] MEDS: aspirin 325 mg Tablet PO (08:35)
[2019-06-06] MEDS: multivitamin therapeutic Tablet 1 TAB PO (08:35)
[2019-06-06] MEDS: metoprolol tartrate 25 mg Tablet 12.5 MG PO (08:35)
[2019-06-06] MEDS: enoxaparin 40 mg/0.4 mL Syringe SUBCUT (08:35)
--- NOTE | 2019-06-06 08:36 | P.OP_ITS ---
Operative Report Date of procedure: May Pre-op Diagnosis: Severe CAD; NSTEMI Post-op diagnosis: same Procedure Done: 1. Coronary artery bypass grafting x3 (1 artery and 2 veins) utilizing in situ left internal mammary artery to the left anterior descending artery, reverse saphenous vein graft aorta to an intramyocardial obtuse marginal branch of the circumflex artery, reverse saphenous vein graft aorta to the distal right coronary artery 2. Endoscopic saphenous vein harvesting of the right greater saphenous vein from thigh and leg. Pathology: none sent Surgeon: Gurvinder Mendoza Anesthesia: General Complications: None Condition: stable Disposition: ICU Brief History: 48-year-old gentleman with a long history of heavy tobacco use and family history for coronary artery disease who presented with progressive exertional angina as well as some angina at rest. He did rule in for non-STEMI. Subsequent evaluation included left heart catheterization revealing total occlusion of the RCA with [id number] collateralization, a high-grade long, proximal and calcific 95% LAD stenosis, and a high-grade lesion of the circumflex artery, involving a large OMB branch of 90 to 95%. Ejection fraction 50%. Due to three-vessel coronary artery disease as well as total occluded RCA and heavy calcific proximal LAD, surgical revascularization was recommended. Appropriate preoperative evaluation was completed. Patient and family education was also completed. Procedure: Details and risks of the surgery were carefully and frankly explained to the patient and the family. Particular risks of this surgery carefully reviewed with them included the possibility of , stroke, heart attack, major bleeding, infection, pneumonia, pain, organ failure, failure to benefit, early closure of the bypass grafts, prolonged hospital stay and subsequent need for further procedures. Increased risks for complications secondary to total occlusion of the RCA and a highly calcific and long proximal LAD stenosis were carefully reviewed. Patient and family understand these increased risks. All questions were answered and appropriate consents were reviewed and signed. Preoperative education for the patient and the family included both written and video materials. Mr. Breen and his wished to proceed with plans for attempted surgical revascularization for severe coronary artery bypass. PROCEDURE: Preoperative evaluation was obtained from our Anesthesia colleagues and adequate IVs were confirmed. The patient was then taken to the Operating Room Suite where general anesthesia was induced. Appropriate invasive monitoring lines were placed, including large bore peripheral IVs, central line, Manlius-Dick catheter, العراقي catheter and associated monitoring leads. After careful positioning on the Operating Room table, the patient was subsequently sterilely prepped and draped. The patient then received low-dose Heparin prior to vein harvest. Saphenous vein was harvested by endoscopic technique from the right thigh and leg. Branches were secured with ligature and clips and the vein was extracted from the tunnel without tension. It was then flushed with a Heparin a nd albumin solution and prepared for grafting. Vein harvest sites were irrigated, platelet poor plasma infused into the tunnel and port sites closed with 3-0 and 4-0 Vicryl Plus suture. Simultaneously with vein harvesting, a median sternotomy was created utilizing a #10 scalpel blade with hemostasis controlled with cautery. After reaching the sternal table, the sternum was divided with a reciprocating saw. Bleeding was controlled with cautery and judicious use of bone wax. Following this, the left chest wall was elevated with a Rultract retractor. The left internal mammary artery was dissected free with branches being secured with clips and cautery. The distal end was left intact. After harvesting of the mammary artery, a left pleural chest tube was then placed. The left chest wall was then lowered and moistened antibiotic-soaked laparotomy pads were placed in the wound, followed by an Ankeney retractor. The sternum was then and the pericardium opened and secured with stay sutures. After inspection, 2-0 pledgeted Ethibond sutures were placed at cannulation sites, at which time the patient was fully heparinized. Following this, the left internal mammary artery was taken down from its distal attachment, flushed with Papaverine solution, prepared for grafting and brisk flow confirmed. A soft bulldog was applied distally. Next, the heart was cannulated with a 22-[place] Citizen aortic cannula, two-stage venous cannula and aortic root vent. The patient was subsequently placed on cardiopulmonary bypass and cooled systemically to 34 degrees. Aortic cross-clamp was then carefully placed and 4 degree Celsius cold blood cardioplegia was administered through the aortic root in antegrade fashion. Prompt diastolic arrest was obtained. Left ventricular decompression was confirmed. The heart was cooled systemically with iced saline with an insulation pad in place to protect the phrenic nerve. Throughout the cross-clamp period, at 20-30 minute intervals, antegrade blood cardioplegia was administered to maintain asystole. We then inspected the cardiac surface and coronary anatomy. Initially, a heavily diseased and heavily calcific RCA was isolated and quite distally we wer e able to find an adequate place for bypass at approximately 1.5 mm in size. Vein was anastomosed distally with running 7-0 Prolene suture and proximally to a 4 mm aortotomy with 5-0 Prolene suture. We then turned our attention to a 2 mm intramyocardial obtuse marginal branch of the circumflex artery. This was dissected free from musculature. Second portion of vein was anastomosed distally with running 7-0 Prolene suture in a end-to-side fashion and proximally to a 4 mm aortotomy with 5-0 Prolene suture. With the rewarming phase of bypass continuing, the left internal mammary artery was brought through a left anterior pericardial window into the field. The LAD was opened up in its distal one-third and was approximately 2 mm in size. The LEIGH was then anastomosed to the LAD with a running 7-0 Prolene suture. It should be noted that all distal coronary anastomoses were performed over the appropriate size coronary shunt which was removed prior to securing the distal suture line. Following this, aortic cross-clamp was released and de-airing maneuvers were performed through the aortic root vent, as well as being confirmed by transesophageal echocardiography. Dobutamine at 5 mcg per kilogram per minute was administered with good chronotropic and inotropic affect. The heart returned to spontaneous sinus rhythm and did not require cardioversion or pacing. After adequate recovery from the cross-clamp period and confirmation of cardiac stability, the patient was weaned from bypass without difficulty. Venous cannula was removed. Heparin was reversed with Protamine and confirmed by measurement of activated clotting time. The heart was then decannulated and cannulation sites were oversewn as required. Pacing wires were placed and brought through the skin and secured. Radiopaque markers were placed on the vein grafts at the level of aorta. Two mediastinal drains were placed and connected to Pleur-evac suction. The wound was carefully irrigated and hemostasis was confirmed. Ankeney retractor was removed and sponge and needle count was correct. The sternum was then reapproximated very carefully with interrupted #7 stainless steel wire with Surgicel strips used beneath the sternal table. Fascia was closed with #1 Vicryl suture with the next layers being closed with 2-0 and 3-0 suture. The skin was reapproximated carefully in a subcuticular manner. Sterile dressings were applied, followed by a vacuum-assisted dressing. The patient was carefully removed from the operating room table and transferred to the Intensive Care Unit. His was then counseled by phone as to the details of the procedure. Dr. Garcia was notified of our operative findings and procedure details.
[2019-06-06] MEDS: chlorhexidine gluconate 4% Btl 118 mL 1 APPLIC TOPICAL (08:42)
--- NOTE | 2019-06-06 08:42 | PM.DCS ---
Discharge Providers Date of Admission: 05/28/19 22:17 Date of Discharge: June 06, 2019 Attending Provider at Admission: Saba Conde MD Attending Provider at Discharge: Hank Waterman MD Diagnoses at Discharge Discharge Diagnosis (1) Anemia: Status: Acute (2) Hypertension: Status: Acute (3) Atherosclerotic heart disease of ewiiaapaayp coronary artery with unstable angina pectoris: Status: Acute Qualifiers: [place] vs. transplanted heart: ewiia[place]ayp heart Qualified Code(s): I25.110 - Atherosclerotic heart disease of ewiiaapaayp coronary artery with unstable angina pectoris (4) S/P CABG (coronary artery bypass graft): Status: Acute (5) Borderline hypertension: Status: Acute Problem details: According to the patient, not currently on any treatment but has been in the past (6) Nicotine dependence, cigarettes, uncomplicated: Status: Chronic (7) Non-ST elevation AK (NSTEMI): Status: Acute Reason for Visit Reason for Visit: Reason For Visit: chest pain Hospital Course Discharge Summary: Mr. Breen is a 48-year-old gentleman with a family history for coronary artery disease who presented with progressive and intense chest discomfort which had progressed from exertional to angina at rest. He has a long history of heavy tobacco use. He did rule in for non-STEMI. Subsequent valuation included left heart catheterization revealing severe three-vessel disease including total RCA and a high-grade calcific and proximal LAD stenosis of over 90%. Surgery revascularization was recommended. He underwent appropriate preoperative evaluations as well as education. He underwent CABG x3 on May 30. Postoperatively, he convalesced in the ICU where he remained hemodynamically stable. There was some difficulty with extreme anxiety and confusion with his first extubation several hours postop. Therefore, he was re-sedated and intubated for another 12 hours and then upon the second reemergence was cooperative and extubated without difficulty. The remainder of his hospital course was uneventful. He remained hemodynamically stable without arrhythmias. He has been initiated on aspirin, Lipitor, and low-dose beta-howard. Chest is been discontinued after drainage had ceased. He was transferred to the lau we continue to progress well. Tolerating a cardiac diet difficulties. Normal bowel and bladder function. Wound VAC dressing was removed on the fifth postop day. Sternotomy incision clean and dry. Sternum stable. He is ambulating independently and eager for discharge. He will be discharged locally to be staying with his [id number]. Home health arrangements have been made. Discharge planning has been completed. At the time of discharge she is in stable condition. Physical Exam Const: COMMON NORMALS: oriented x3 ORIENTATION/CONSCIOUSNESS: Yes oriented to person, Yes oriented to place and Yes oriented to time Chest: COMMONS NORMALS: inspection of chest normal (Sternotomy incision healing well. Sternum stable. Drain sites well approximated.) Resp: COMMON NORMALS: normal respiratory effort and clear to auscultation bilaterally AUSCULTATION: clear to auscultation bilaterally Cardio: COMMON NORMALS: regular rate, regular rhythm and S1 normal heart sound RATE: regular rate RHYTHM: regular rhythm HEART SOUNDS: S1 normal, no gallops and no murmurs PERIPHERAL PULSES: radial pulses present positive bilateral 2+ Extremity: NARRATIVE EXTREMITY EXAM: Just a trace of edema at the ankles, most postoperative edema has completely resolved. 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 Routin e Exams 05/29/19 08:44 Completed CXRP [XR chest 1V portable [id number]] R outine Exams 05/31/19 13:52 Completed XR chest 1V shane ble [id number] Routine Exams 06/01/19 Completed XR chest 1V shane ble [id number] Routine Exams 06/02/19 06:00 Completed XR chest 1V shane ble [id number] Routine Exams 06/03/19 06:00 Completed XR chest 1V shane ble [id number] Stat Exams 05/28/19 17:10 Completed CV echo complete* [id number] Routine Ultrasound 05/29/19 23:57 [place] [id number] Routi ne Ultrasound 05/29/19 15:10 Completed Pending at discharge Category Date Time Status Arterial Blood Ga s Full Routine Lab 05/31/19 10:34 Results Arterial Blood Ga s Full Routine Lab 05/31/19 11:00 Results Arterial Blood Ga s Full Routine Lab 05/31/19 11:35 Results Arterial Blood Ga s Full Routine Lab 05/31/19 12:00 Results Arterial Blood Ga s Full Routine Lab 05/31/19 12:40 Results Arterial Blood Ga s Full Routine Lab 05/31/19 13:00 Results Arterial Blood Ga s Full Routine Lab 05/31/19 13:50 Results Arterial Blood Ga s Full Routine Lab 05/31/19 14:20 Results Vitals: Last Vital Signs Temp 98.3 F 06/06/19 07:53 Pulse 86 06/06/19 07:53 Resp 16 06/06/19 07:53 BP 156/97 06/06/19 07:53 Pulse Ox 93 06/06/19 07:53 Discharge Plan Discharge Patient Disposition: Home, Self-Care Condition: Stable Prescriptions: New alprazolam 0.25 mg Tablet 0.25 mg PO BID PRN (Reason: Anxiety) Qty: 15 RF: 0 oxycodone-acetaminophen 5-325 mg Tablet 1 tab PO Q6H PRN (Reason: Moderate Pain) Qty: 28 RF: 0 aspirin 325 mg Tablet 325 mg PO DAILY Qty: 100 RF: 4 atorvastatin 40 mg Tablet 20 mg PO BEDTIME Qty: 30 RF: 4 metoprolol tartrate 25 mg Tablet 12.5 mg PO BID Qty: 60 RF: 4 Continued Multiple Vitamin-Minerals Tablet 1 tab PO DAILY RF: 0 No Action Aleve 220 mg Tablet 220 mg PO BID PRN (Reason: Pain) RF: 0 Discharge Orders: Discharge Order (Routine); Ordered 06/06/19 Ordered By: Gurvinder Mendoza Referrals: [facility] ([facility]) [Outside] Gurvinder Mendoza MD [Physician] - 06/13/19 11:00 am Discharge Diet: Cardiac Discharge Activity: Limit activity as instructed Patient Instructions: Metoprolol (By mouth), Oxycodone/Acetaminophen (By mouth), Alprazolam (By mouth), Atorvastatin (By mouth), Coronary Artery Bypass Graft (DC), Heart Healthy Diet (GEN) Activity Restrictions/Additional Instructions: No heavy lifting, tugging, or pushing more than 5 pounds for the next 8 weeks Use incentive spirometry daily May shower daily, but no tub baths or swimming. Report any increased pain, redness, or drainage from incision No smoking!! Please obtain nicotine patch or other nicotine alternative, [id number], and use according to instructions on packaging Please keep heart pillow close and utilize for support during sneezing or coughing You may be more comfortable sleeping in a reclined position such as a recliner chair for the first several nights to week Please contact office for any concerns or questions prior to your scheduled clinic visit. Discharge Attestations Time Spent in Discharge Care*: less than 30 min Specific Discharge Activities: Specific discharge activities: educating patient, discussing with case management rn/social workers/dc planners, documenting/other paperwork and evaluating patient/reviewing data Time Spent in Smoking Cessation: Time spent discussing smoking cessation with patient: 3 to 10 minutes Status at Discharge: Cognitive status at discharge: cognitively intact, Functional status at discharge: independent ambulation Overall status at discharge: patient is progressing back to baseline Quality Metrics Clinical Quality Measures During this hospital stay, did patient experience: AMI Clinical Trial Participant: No Contraindication to aspirin (AMI): Aspirin given Contraindication to statin: Statin prescribed Contraindication to PCI: Intervention not indicated Contraindication to Fibrinolytics: Alternative treatment initiated Coding Level of Care Code Acute Behavioral Assistant for [place] Fwd Diagnoses Anemia D64.9 Hypertension I10 Atherosclerotic heart disease of ewiiaapaayp coronary artery with unstable angina pectoris I25.110 [place] vs. transplanted heart: e[place] heart S/P CABG (coronary artery bypass graft) Z95.1 Borderline hypertension R03.0 Nicotine dependence, cigarettes, uncomplicated F17.210 Non-ST elevation AK (NSTEMI) I21.4
[2019-06-06 08:46] VITALS: BP 156/97; PULSE 86; RESP 16; TEMP 36.8; O2SAT 93
--- NOTE | 2019-06-06 09:22 | P.PN_ITS ---
Subjective Subjective: Interval history: Elliott reports he is ready to go home. He has no complaints. No chest pain. Cardiothoracic surgery is written discharge orders end of discharge summary. Medications: Reviewed: Yes Vitals/I&O/Wt Last Vital Signs Temp 98.3 F 06/06/19 08:46 Pulse 86 06/06/19 08:46 Resp 16 06/06/19 08:46 BP 156/97 06/06/19 08:46 Pulse Ox 93 06/06/19 08:46 06/05/19 06/06/19 06/06/19 22:59 06:59 14:59 Intake Total 460 / 1000 100 / 1100 240 / 240 Output Total 500 / 1950 Balance -40 / -950 100 / -850 240 / 240 Weight last 48 hrs Weight 104.689 kg Physical Exam Narrative: EXAM NARRATIVE: General exam no apparent distress Cardiovascular regular rate and rhythm without murmur Lungs clear Abdomen is soft with positive bowel sounds Extremities no cyanosis clubbing. Trace edema right leg where venous harvest occurred Urinary Catheter Management^: العراقي: Cath Placed During This Visit: yes Reason for Continuing Indwelling Catheter: Accurate Measurement of Urinary Output in Critically Ill Patients Urinary Catheter Date of Insertion: 05/31/19 Urinary Catheter Time of Insertion: 07:00 Data : 06/04/19 04:10 06/03/19 03:48 A&P Assessment and plan (1) Non-ST elevation PR (NSTEMI): Status post coronary artery bypass grafting Continue aspirin, statin, beta-howard May need addition of lisinopril in future if blood pressure still elevated. Status: Acute (2) Nicotine dependence, cigarettes, uncomplicated: Encourage abstinence. Counseled 3 to 5 minutes during his hospital stay. Status: Chronic (3) S/P CABG (coronary artery bypass graft): Coronary artery bypass grafting occurred on May 30. He is done well. Discharged today Status: Acute (4) Hypertension: Metoprolol added. May need addition of lisinopril at next appointment Status: Acute (5) Anemia: Acute postoperative blood loss anemia. Currently appears stable. Status: Acute Additional A&P Information Coronary artery disease. Status post angiogram leading to coronary artery byp ass grafting secondary to three-vessel disease. EF preserved. Echocardiogram demonstrated EF of 60%. Anxiety, stable Full code Lovenox for DVT prophylaxis Attestations Medical Necessity Statement*: Not applicable, discharged today Coding Level of Care Code Acute Digital Media Intern for Chg Fwd Diagnoses Non-ST elevation PR (NSTEMI) I21.4 Nicotine dependence, cigarettes, uncomplicated F17.210 S/P CABG (coronary artery bypass graft) Z95.1 Hypertension I10 Anemia D64.9
[2019-06-06 10:15] VITALS: BP 156/97; PULSE 86; RESP 16; TEMP 36.8; O2SAT 93
== END 2019-06-06 10:15 | disposition home or self-care (01) | DRG 234 ==
LOC: ER 18:27 → MEDSURG 23:51 → ICU 05-31 12:33 → MEDSURG 06-04 12:49
PROVIDERS: Emergency Medicine; Internal Medicine Cardiovascular Disease; Student in an Organized Health Care Education/Training Program; Thoracic Surgery (Cardiothoracic Vascular Surgery); Admitting Provider Hospitalist; Emergency Provider Emergency Medicine; Visit Provider Internal Medicine
PROC: 4A023N7 Measurement of Cardiac Sampling and Pressure, Left Heart, Percutaneous Approach (ICD-10-PCS; principal; 2019-05-29 08:30)
PROC: 02100Z9 Bypass Coronary Artery, One Artery from Left Internal Mammary, Open Approach (ICD-10-PCS; principal; 2019-05-31 07:00)
DX: I21.4 Non-ST elevation (NSTEMI) myocardial infarction (principal); D62 Acute posthemorrhagic anemia; I25.10 Atherosclerotic heart disease of native coronary artery without angina pectoris; R03.0 Elevated blood-pressure reading, without diagnosis of hypertension; Z82.49 Family history of ischemic heart disease and other diseases of the circulatory system; F17.210 Nicotine dependence, cigarettes, uncomplicated; R45.1 Restlessness and agitation
CPT/HCPCS: 12345; 36415; 36416; 36592; 36600; 51702; 71045; 80048; 80051; 80053; 80061; 80076; 81003; 82803; 82810; 82962; 83036; 83735; 83880; 83986; 84100; 84439; 84443; 84481; 84484; 85025; 85347; 85378; 85610; 85730; 86850; 86900; 86920; 93005; 93306; 93452; 93970; 94002; 94003; 94640; 94664; 94799; 96365; 96372; 96375; 97110; 97116; 97161; 97166; 97530; 97535; 99283; C1769; C1887; C1894; C9113; J0171; J0330; J0697; J1250; J1644; J1650; J1815; J1940; J2001; J2060; J2150; J2250; J2270; J2370; J2405; J2440; J2704; J2720; J3010; J3370; J3475; J3480; J3490; J7030; J7040; J7050; P9041; P9047; Q0163; Q9967

== ENCOUNTER 2019-05-31 08:00 | Day surgery (SDC) | payer SELFPAY ==
--- NOTE | 2019-05-31 06:04 | ANES.PREANE2 ---
Pre-Anesthetic Assessment Pre-Anesthetic Assessment: Height/Weight: Height 1.75 m Preop Diagnosis: Severe CAD; NSTEMI Proposed Procedure: CABG Familial anesthetic complications: None Was Beta Lucy taken within 24 hours: N/A Last intake: NPO > 8 hrs Social: Social History: Tobacco Exam: Pre-Anes Outpt Exam: alert, oriented x 3, clear to auscultation bilaterally and regular rate & rhythm Airway: Cervical ROM: WNL MP: 3 Dentition: Chipped Additional comments: missing CV/HEM: CV/HEM: Angina (Unstable), CAD and UT : : None reported Hepatic: Hepatic: None reported GI: GI: None reported Metabolic: Metabolic: Morbid obesity Musc/skel: Musc/skel: None reported Neuropsych: Neuropsych: None reported Anesthetic Plan: ASA status: 4 Anesthesia: General Risk of > 500 ml blood loss (7ml/kg in children): Yes, adequate IV access and fluids planned PFSH Anesthesia PFSH: Social History Smoking and tobacco status: current every day smoker Data Anesthesia Cardiac Studies: No Data to Display
== END 2019-05-31 09:00 | disposition home or self-care (01) ==
LOC: OR 09-24 15:45
PROVIDERS: PCP Registered Nurse; Visit Provider Thoracic Surgery (Cardiothoracic Vascular Surgery)
DX: I25.10 Atherosclerotic heart disease of native coronary artery without angina pectoris (principal)
CPT/HCPCS: J2001; J2250; J2370; J2704; J3010; J3490

== ENCOUNTER → 2020-08-31 09:58 | Outpatient (BNVA) | payer SELFPAY | PROVIDERS: PCP Registered Nurse; Visit Provider Registered Nurse | DX: I10 Essential (primary) hypertension (principal); E78.5 Hyperlipidemia, unspecified; Z12.11 Encounter for screening for malignant neoplasm of colon; Z02.89 Encounter for other administrative examinations; Z87.891 Personal history of nicotine dependence | CPT/HCPCS: 80053; 80061; 85025 ==

== ENCOUNTER → 2023-08-02 15:27 | Outpatient (BNVA) | payer MEDICAID, SELFPAY | PROVIDERS: PCP Registered Nurse; Visit Provider Registered Nurse | DX: I10 Essential (primary) hypertension (principal); I25.110 Atherosclerotic heart disease of native coronary artery with unstable angina pectoris; Z95.1 Presence of aortocoronary bypass graft; Z91.148 Patient's other noncompliance with medication regimen for other reason; I25.10 Atherosclerotic heart disease of native coronary artery without angina pectoris; Z71.89 Other specified counseling | CPT/HCPCS: 80053; 80061; 85025 ==

== ENCOUNTER → 2023-11-07 09:12 | Outpatient (BNVA) | payer MEDICAID, SELFPAY | PROVIDERS: PCP Registered Nurse; Visit Provider Registered Nurse | DX: I10 Essential (primary) hypertension (principal) | CPT/HCPCS: 80048 ==

== ENCOUNTER → 2023-11-28 14:35 | Outpatient (BNVA) | payer MEDICAID, SELFPAY | PROVIDERS: PCP Registered Nurse; Visit Provider Internal Medicine Cardiovascular Disease | DX: R07.9 Chest pain, unspecified (principal); I25.118 Atherosclerotic heart disease of native coronary artery with other forms of angina pectoris; R06.09 Other forms of dyspnea; I10 Essential (primary) hypertension; E78.5 Hyperlipidemia, unspecified; Z87.891 Personal history of nicotine dependence; R00.1 Bradycardia, unspecified | CPT/HCPCS: 93005 ==

== ENCOUNTER 2023-12-15 07:14 | Outpatient (CLI) | payer MEDICAID, SELFPAY ==
--- NOTE | 2023-12-15 | ECG_ITS ---
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 Interpretive Statements Lung unchanged pre/post procedure; Intraprocedure shortess of breath; Symptoms resoled by discharge PROCEDURE: The baseline electrocardiogram showed normal sinus rhythm with normal ST-Ts. At the baseline, the patient's blood pressure was 116/79 mm Hg with a heart rate of 74/min. The patient exercised for 9 minutes and 8 seconds on a standard [place] protocol. Patient attained a maximum heart rate of 141 beats per minute(84% of the maximum predicted heart rate) with a blood pressure at the peak exercise of 155/78 mm Hg. The EKG at the peak exercise revealed some nonspecific ST-T changes. Patient did not have any chest pain or any significant arrhythmis with the exercise Sestamibi was injected 1 minute prior to the peak exercise During the recovery phase, there were no new changes. Blood pressure at the end of the recovery phase was 122/76 mm Hg with a heart rate of 101 per minute. CONCLUSION: 1. Nonspecific EKG changes with the [treadmill exercise 2. No exercise-induced chest pain or cardiac arrhythmia 3. Good impaired exercise tolerance, attained a maximum of 10.2 METs 4. Sestamibi/Sestamibi perfusion results pending; see separate report. Electronically Signed On 12-16-2023 12:43:12 SENIOR ACCOUNTING ANALYST by Elizabeth Garcia M.D. [email or web address]
[2023-12-15 07:32] VITALS: BMI 29.0
--- NOTE | 2023-12-15 07:36 | NMCV_ITS ---
NM vonda perf SPECT r/s* [id number] Elliott Breen Age: 53 Gender: M : 1970 Exam Date: 12/15/2023 08:07 Ordering Phys: Technologist: FAHEEM Urias Exam Location: [facility] Indications: CP STRESS TEST Please see separate stress test report in [facility] for full findings IMAGE PROTOCOL Rest/Stress 1 Exercise Day Radiopharmaceutical Dose (mCi) Administration Site Administered by Rest: Tc-99m 8.8 IV Haydee Igor, WEB SITE ADMIN Sestamibi Stress:Tc-99m 28.0 IV Haydee Igor, WEB SITE ADMIN Sestamibi Rest: 15-Dec-2023 60 Discovery 630 Stress: 15-Dec-2023 15 Discovery 630 Radiopharmaceutical was injected at 85 % maximum heart rate. Images obtained in supine and prone position. SPECT RESULTS Technical Quality: Good Raw Data Analysis: Normal Image Corrections: No attenuation or motion correction applied Summed Stress Score: 0 Summed Rest Score: 0 Summed Difference Score: 0 PERFUSION FINDINGS Uniform myocardial tracer uptake with no significant Perfusion normalities. FUNCTIONAL RESULTS (calculated via Gated SPECT) Stress Image LV EF (%): 77 Stress EDV (mL):70 TID: 0.63 Stress ESV (mL):16 FUNCTIONAL FINDINGS: Segmental wall motion analysis revealing no gross wall motion abnormalities IMPRESSIONS 1. Myocardial perfusion imaging revealing uniform myocardial tracer uptake with no significant Perfusion abnormalities. 2. Normal LV ejection fraction 77%. 3. LV wall motion analysis revealing no gross wall motion abnormalities. 4. Normal LV volume Low probability for coronary ischemia, based on the above findings Dr Elizabeth Garcia MD FACC (Electronically Signed) Final Date: 15 December 2023 19:52 S
[2023-12-15 09:19] VITALS: BP 122/76; PULSE 93
== END 2023-12-15 07:15 | disposition home or self-care (01) ==
LOC: CDL 07:15
PROVIDERS: PCP Registered Nurse; Visit Provider Internal Medicine Cardiovascular Disease
DX: Z98.61 Coronary angioplasty status (principal); R07.9 Chest pain, unspecified; R06.02 Shortness of breath
CPT/HCPCS: 36415; 78452; 93017; A9500

== ENCOUNTER 2024-02-12 10:08 | Outpatient (CLI) | payer MEDICAID, SELFPAY ==
--- NOTE | 2024-02-12 10:00 | USCV_ITS ---
Elliott Breen Age: 53 Gender: M : 1970 Exam Date: 02/12/2024 10:16 Ordering Phys: Elizabeth Garcia MD ([email or web address]) Technologist: YESSENIA [place]am [place] [facility] [place] Indication: CHEST PAIN/CABG BP: 130 / 75 HR: 52 Rhythm: Sinus Technical Quality: Adequate MEASUREMENTS (Male / Female) Normal Values 2D ECHO LV Diastolic Diameter PLAX 4.4 cm 4.2 - 5.9 / 3.9 - 5.3 cm IVS Diastolic Thickness 1.1 cm 0.6 - 1.0 / 0.6 - 0.9 cm IVS Systolic Thickness 1.6 cm LVPW Diastolic Thickness 2.0 cm 0.6 - 1.0 / 0.6 - 0.9 cm LVPW Systolic Thickness 1.8 cm LVOT Diameter 2.0 cm LV Ejection Fraction 2D Teich 67.0 % LV Ejection Fraction MOD 4C 52.5 % LV Ejection Fraction MOD 2C 60.7 % LV Ejection Fraction 2C AL 62.4 % LA Diameter 3.6 cm RA Systolic Volume 4C AL 27.2 ml RA Systolic Volume 4C MOD 26.6 ml LA Sys Volume AL 42.2 cm cubed LA Sys Volume Index AL 22.1 cm cubed/m squared Aorta at Sinotubular Diameter 2.8 cm IVC Diameter 1.2 cm M-MODE LA Ao Ratio MM 0.8 AV Cusp Separation MM 1.5 cm DOPPLER AV Peak Velocity 127.0 cm/s LVOT Peak Velocity 110.0 cm/s AV Area Cont Eq vti 2.8 cm squared AV Area Cont Eq pk 2.7 cm squared MV Peak Velocity 124.0 cm/s MV Area PHT 3.4 cm squared Mitral E to A Ratio 2.0 TR Peak Velocity 233.0 cm/s TR Peak Gradient 21.7 mmHg TR Mean Velocity 197.0 cm/s TR Mean Gradient 16.4 mmHg TR Velocity Time Integral 68.2 cm TV Peak E Velocity 47.0 cm/s PV Peak Velocity 89.0 cm/s RV Ejection Time 0.4 s FINDINGS Left Ventricle Normal left ventricular size and systolic function, EF 55%.abnormal septal motion consistent with conduction abnormality. Right Ventricle The right ventricle is normal in size and function. Right Atrium The right atrium is normal in size. Left Atrium The left atrium is normal in size. Mitral Valve Trace mitral valve regurgitation. Aortic Valve Trace aortic valve regurgitation. Tricuspid Valve No gross abnormalities noted Pulmonic Valve No gross abnormalities noted Pericardium No pericardial effusion. Aorta Normal ascending aorta dimension. IVC Normal inferior vena cava. CONCLUSIONS Normal left ventricular size and systolic function, EF 55%.abnormal septal motion consistent with conduction abnormality. Trace mitral valve regurgitation. Trace aortic valve regurgitation. There is no pericardial effusion. There are no intracardiac masses. Compared to the study from 05/29/2019, there may not be a significant change Dr Elizabeth Garcia MD FACC (Electronically Signed) Final Date: 16 February 2024 17:43 S
== END 2024-02-12 10:09 | disposition home or self-care (01) ==
LOC: RAD 10:08
PROVIDERS: PCP Registered Nurse; Visit Provider Internal Medicine Cardiovascular Disease
DX: I10 Essential (primary) hypertension (principal); I25.110 Atherosclerotic heart disease of native coronary artery with unstable angina pectoris; R06.09 Other forms of dyspnea
CPT/HCPCS: 93306

== ENCOUNTER → 2024-02-15 10:31 | Outpatient (BNVA) | payer MEDICAID, SELFPAY | PROVIDERS: PCP Registered Nurse; Visit Provider Registered Nurse | DX: I10 Essential (primary) hypertension (principal) | CPT/HCPCS: 80053; 80061 ==

== ENCOUNTER 2024-03-01 09:01 | Outpatient (CLI) | payer MEDICAID, SELFPAY ==
--- NOTE | 2024-03-01 09:00 | CT_ITS ---
WS: [id number] LDCT LUNG CANCER SCREENING HISTORY: Z12.2 - Encounter for screening for malignant neoplasm of... TECHNIQUE: Axial imaging performed from the apices to 1 cm below the costophrenic angles. Coronal and sagittal reformats are submitted with axial MIP series. All CT scans at [facility] use at least one of these dose optimization techniques: automated exposure control; mA and/or kV adjustment per patient size (includes targeted exams where dose is matched to clinical indication); or iterativ e reconstruction. DLP: 72.00 mGy.cm DIvol: Mean CTDIvol: 1.40 (mGy) COMPARISON: None available. Diagnostic quality: Satisfactory Lungs: Less than 3 mm nodule RIGHT lower lobe. Perifissural nodule along the superior RIGHT major fis sure. No mass. No endobronchial lesions. Heart: Normal size heart with no pericardial effusion.. Prior CABG. Other findings: No mediastinal or hilar adenopathy identified. Mild atherosclerosis aorta. No hiatal hernia. No adrenal mass. CT/CT lung screening [id number] IMPRESSION: LUNG-RADS: 2-Benign Appearance or Behavior FOLLOW UP: 12 Month: Continue annual screening with LDCT OTHER FINDINGS (S MODIFIER): None.
== END 2024-03-01 09:02 | disposition home or self-care (01) ==
LOC: RAD 09:04
PROVIDERS: PCP Registered Nurse; Visit Provider Registered Nurse
DX: Z12.2 Encounter for screening for malignant neoplasm of respiratory organs (principal); R91.8 Other nonspecific abnormal finding of lung field; Z98.890 Other specified postprocedural states; I70.0 Atherosclerosis of aorta
CPT/HCPCS: 71271

== ENCOUNTER 2024-04-04 10:38 | Day surgery (SDC) | payer MEDICAID, SELFPAY ==
--- NOTE | 2024-04-04 10:37 | ANES.PREANE2 ---
Pre-Anesthetic Assessment Height/Weight: Height 1.68 m Preop Diagnosis: Screening Operation Date: 04/04/24 11:55 Proposed Procedures p Colonoscopy 75662, G0121, Z12.11(Not Applicable) - Darren Jimenez MD Familial anesthetic complications: none Was Beta Lucy taken within 24 hours: Yes Was Clonidine taken within 24 hours: N/A Social No alcohol Vapes Exam alert, oriented x 3, clear to auscultation bilaterally and regular rate & rhythm Airway Mallampati: Class II Comments: Comments: intact Pulmonary Shortness of Breath CV/HEM Coronary Artery Disease, Hypertension and Myocardial Infarction EF 55% >4mets None reported Hepatic None reported GI None reported Metabolic None reported Musc/skel None reported Neuropsych None reported Anesthetic Plan ASA status: 3 Anesthesia: MAC Risk of > 500 ml blood loss (7ml/kg in children): No Medications/Allergies Home Medications ?Medication ?Instructions ?Recorded ?Confirmed ?Last Taken ?Type multivitamin with minerals 1 tab PO DAILY 05/28/19 04/04/24 04/03/24 History (Multiple Vitamin-Minerals tablet) aspirin 325 mg tablet 325 mg PO DAILY #100 tabs 02/19/24 04/04/24 03/30/24 Rx atorvastatin 40 mg tablet 40 mg PO DAILY 90 days #90 tabs 02/19/24 04/04/24 04/03/24 Rx lisinopril 5 mg tablet 5 mg PO DAILY 90 days #90 tabs 02/19/24 04/04/24 04/03/24 Rx metoprolol tartrate 25 mg tablet 12.5 mg PO BID 04/02/24 04/04/24 04/03/24 History sildenafil 50 mg tablet 50 mg PO PRN PRN Sexual Activity 04/02/24 04/04/24 Unknown History Allergies Allergy/AdvReac Type Severity Reaction Status Date / Time meperidine (From Demerol) Allergy ADR-Irritab Verified 04/02/24 09:54 [facility] Anesthesia Medical History 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 CAD (coronary artery disease) Surgical History History of coronary artery bypass graft x 3 S/P CABG (coronary artery bypass graft) History of shoulder surgery right History of appendectomy Family History Father CAD (coronary artery disease) reports onset in his 50s, has stents Mother CAD (coronary artery disease) Social History Smoking and tobacco/nicotine status: former use of tobacco/nicotine Quit status (tobacco/nicotine): has quit using Alcohol intake: never Substance/Drug Use: current Adopted: No Caregiver/support person: No Lives independently: No Household members: spouse Marital status: service: No Current occupational status: employed Sexually active: Yes Do you think of yourself as: Straight/Heterosexual Current gender identity: Male Data Anesthesia Cardiac Studies: Echocardiogram 02/12/24 Echocardiogram Ultrasound 05/29/19 Sestamibi Stress Test (Cardiology) 12/15/23
[2024-04-04] MEDS: sodium chloride 0.9% 1,000 ML 30 ML IV (11:00)
--- NOTE | 2024-04-04 11:00 | P.HPUD_ITS ---
Surgery/Procedure H&P Update DATE OF PROCEDURE: April 04, 2024 DATE H&P PERFORMED: 03/06/24 H&P UPDATE INFORMATION: I have reviewed H&P completed within last 30 days, I have examined patient prior to procedure, No changes to prior documentation and [place] [facility] [place] indicated PREOP DIAGNOSIS: Screening PLANNED PROCEDURE: Operation Date: 04/04/24 11:55 Proposed Procedures p Colonoscopy 47789, G0121, Z12.11(Not Applicable) - Darren Jimenez MD
[2024-04-04 11:04] VITALS: BP 127/95; PULSE 67; RESP 17; TEMP 36.2; O2SAT 100; BMI 28.5
[2024-04-04 11:55] VITALS: BP 104/84; PULSE 67; RESP 17; TEMP 36.2; O2SAT 100
[2024-04-04 12:05] VITALS: BP 94/72; PULSE 65; RESP 16; O2SAT 100
[2024-04-04 12:26] VITALS: BP 113/87; PULSE 63; RESP 16; O2SAT 99
--- NOTE | 2024-04-04 12:35 | ANE.PACU2 ---
Inpatient post-anesthesia follow up: Airway intact: Yes Vital signs: Temperature 97.2 F Pulse Rate 63 Respiratory Rate 16 Blood Pressure 113/87 Pulse Oximetry 99 Oxygen Delivery Me thod Room Air Oxygen Flow Rate Fraction of Inspir ed Oxygen Hydration adequate: Yes Nausea and vomiting: No Pain level: 1 Mental status: Baseline
== END 2024-04-04 12:35 | disposition home or self-care (01) ==
PROVIDERS: PCP Registered Nurse; Visit Provider Surgery
PROC: 0DJD8ZZ Inspection of Lower Intestinal Tract, Via Natural or Artificial Opening Endoscopic (ICD-10-PCS; CPT 45378; principal; 2024-04-04 11:55)
DX: Z12.11 Encounter for screening for malignant neoplasm of colon (principal); K57.30 Diverticulosis of large intestine without perforation or abscess without bleeding; I25.10 Atherosclerotic heart disease of native coronary artery without angina pectoris; I10 Essential (primary) hypertension; I25.2 Old myocardial infarction; Z79.899 Other long term (current) drug therapy; Z79.82 Long term (current) use of aspirin; Z88.8 Allergy status to other drugs, medicaments and biological substances; Z95.1 Presence of aortocoronary bypass graft; Z87.891 Personal history of nicotine dependence
CPT/HCPCS: 43239; 45378; J2704; J7030

== ENCOUNTER 2025-01-23 10:44 | Outpatient (CLI) | payer MEDICAID, SELFPAY ==
--- NOTE | 2025-01-23 10:50 | XR_ITS ---
WS: [id number] Right shoulder, 2 views, 01/23/2025 Clinical Data: M25.511 - Pain in right shoulder Comparison: None. Findings: No fractures or dislocations are seen. The glenohumeral joint shows spurring and irregularity. The AC joint is normal. The adjacent right clavicle, right scapula and ribs are normal. The soft tissues are unremarkable. There is an orthopedic anchor in the humeral head. There are midline sternotomy sutures. XR/XR shoulder RT min 2V* [id number] Impression: 1. Osteoarthritis of the right glenohumeral joint. 2. Orthopedic anchor in right humeral head.
== END 2025-01-23 10:45 | disposition home or self-care (01) ==
LOC: RAD 10:46
PROVIDERS: PCP Registered Nurse; Visit Provider Registered Nurse
DX: M19.011 Primary osteoarthritis, right shoulder (principal); Z96.7 Presence of other bone and tendon implants
CPT/HCPCS: 73030